=== PATIENT | female | born 1935 | race Caucasian/White ===

== ENCOUNTER → 2018-01-08 | Outpatient (CLI) | payer MEDICARE ==
--- NOTE | 2018-01-08 11:50 | MM ---
Reason for exam: additional evaluation requested from prior study. Last mammogram was performed 1 year ago. History: Patient is postmenopausal and has history of breast cancer at age 67. Benign cyst aspiration of the left breast, January 03, 2004. Lumpectomy of the right breast, 2001. Chemotherapy, 2001. Radiation therapy of the right breast, 2001. Took antineoplastic for 5 years beginning at age 67. Physical Findings: Nurse did not find any significant physical abnormalities on exam. MG 3D Diag Mammo W/Cad DOLORES Bilateral CC and MLO view(s) were taken. Prior study comparison: December 28, 2016, bilateral MG diagnostic mammo w CAD DOLORES. February 07, 2016, bilateral MG 3d diag mammo w/cad DOLORES. The breast tissue is heterogeneously dense. This may lower the sensitivity of mammography. Post surgical and post therapy change right breast. Large mole superior right breast. No significant new findings when compared with previous films. These results were verbally communicated with the patient and result sheet given to the patient on 01/08/18. ASSESSMENT: Benign, BI-RAD 2 RECOMMENDATION: Follow-up diagnostic mammogram of both breasts in 1 year.
== END | disposition home or self-care (01) ==
LOC: RADMAMWWP 10:45
PROVIDERS: ATTEND Internal Medicine Hematology & Oncology
DX: Z08 Encounter for follow-up examination after completed treatment for malignant neoplasm (principal); Z85.3 Personal history of malignant neoplasm of breast
CPT/HCPCS: 77066; G0279; 77062

== ENCOUNTER → 2019-02-06 | Outpatient (CLI) | payer MEDICARE ==
--- NOTE | 2019-02-06 14:25 | CT ---
EXAMINATION TYPE: CT soft tissue neck w con DATE OF EXAM: 02/06/2019 COMPARISON: None HISTORY: left side neck mass CT DLP: 289 mGycm CONTRAST: Patient injected with 80 mL of Isovue 300. TECHNIQUE: Axial images at 3 mm thick sections. Reconstructed images in the coronal plane and sagitt al plane are reviewed. FINDINGS: Limited CT sections are obtained the lung apices. The lung apices appear clear. CT neck: The torus tubarius and fossa of Rosenmuller are normal. [employer] Worker spaces are normal. Para nasal sinuses and mastoid air cells are clear. Within the left parotid gland is a 1.2 cm slightly hyperdense structure could be a enlarged lymph nod e. This corresponds to the palpable abnormality. The right parotid gland appears normal. Large lympha denopathy is not otherwise identified. Submandibular glands, are normal. Parapharyngeal spaces are n ormal. No suspicious adenopathy is evident. The hypopharynx appears within normal limits. Vocal cord level appear symmetrical. Thyroid as visualized is normal. Osseous structures are normal. IMPRESSIONS: 1. There is a 1.2 cm lymph node within the parotid gland at the level of the palpable abnormality lef t neck.
== END ==
LOC: RADCTMAIN 07:25
PROVIDERS: ATTEND Otolaryngology
DX: R22.1 Localized swelling, mass and lump, neck (principal); Z88.2 Allergy status to sulfonamides
CPT/HCPCS: 82565; 84520; 70491; 36415; Q9967

== ENCOUNTER → 2019-02-07 | Outpatient (CLI) | payer MEDICARE ==
--- NOTE | 2019-02-09 15:39 | PE ---
EXAMINATION TYPE: PET CT fusion skull to thigh DATE OF EXAM: 02/07/2019 COMPARISON: None available. Imaging is ordered as subsequent treatment strategy and outside imaging m ay have been performed in the past. HISTORY: History of right lower inner quadrant breast cancer although remote and 2003 treated with pa rtial mastectomy, chemotherapy and radiation. Recent left neck mass biopsy with result of metastatic breast cancer. TECHNIQUE: Following the intravenous administration of 13.67 mCi of F-18 FDG, whole b landon images are performed from the skull base to the midthigh. Images are reviewed on the computer in the coronal, axial, and sagittal planes. Reconstructed rotating images are created on independent [employer] orkstation and reviewed on the computer. A localization and attenuation correction CT is performed in conjunction with the PET scan. SCAN: Subsequent per history however no available comparison studies. FINDINGS: Mediastinal background: 1.7 Abdominal background: 2.74 SKULL BASE AND NECK: There is hypermetabolic activity corresponding to the biopsied left neck adenop athy just inferior to the parotid gland. This again measures approximately 1.2 cm in short axis but i s better defined on the prior exam of 02/06/2019 with contrast. This is biopsy-proven metastatic lymph node from breast carcinoma. This has a maximum SUV of 3.7. There is avid and diffuse hypermetabolic activity of the enlarged thyroid gland. There is a maximum S UV of 2.8. There is a right suprahilar lymph node at the level of the thyroid that is ill-defined on CT images m easuring approximately 9 mm in short axis with hypermetabolic activity. This has a maximum SUV of 2.9 . This is marked on series 3 image 59. CHEST, MEDIASTINUM, AND HILAR REGION: Local recurrence is seen as an amorphous area of hypermetabolic activity along the pectoralis muscle in the medial right breast cranial to the postsurgical change. Overlying skin thickening displays no hypermetabolic activity and is likely related to the prior radi ation therapy. Right suprahilar lymph node is ill-defined on CT and suboptimally measured but has an SUV of 3.37. Some amorphous uptake in the subscapularis on the right likely is due to muscular strain rather than metastasis. Right perihilar lymph node has a maximum SUV of 2.7 and is nonenlarged. ABDOMEN AND PELVIS: There is a nonenlarged 5 mm short axis retroperitoneal periaortic hypermetabolic lymph node with a maximum SUV of 2.9. This is marked on series 3 image 123. No additional suspicious hypermetabolic uptake. OSSEOUS STRUCTURES: Osseous metastasis is multifocal with a mixed sclerotic and lytic lesion having a n SUV of 7.4 within the right sternal manubrium. Numerous mixed sclerotic and lytic metastatic foci a re seen within the vertebral bodies such as at T2, T7, T8, T9, T12, L1, L2, right iliac bone and left iliac bone, and bilateral acetabulum. Sternal body focus is also seen on the left near the xiphoid. Uptake is also seen at T1 and C5, either degenerative or metastatic. Some examples of osseous metasta sis demonstrate SUVs at T2 of 4.8, in the cervical spine facet of 3.5, within the right acetabulum of 9.1, and within the spinous process of L1 of 3.8. OTHER CT: The thyroid gland is enlarged. Paranasal sinuses appear well aerated. Atherosclerosis of th e carotid arteries in the neck. Ill-defined haziness of the superior mediastinum is of uncertain etio logy, possibly related to the small pericardial effusion. Moderate coronary calcifications. Mild card iomegaly. Prominence of the main pulmonary artery measuring 2.9 cm. Upper limits of normal size of th e ascending thoracic aorta measuring 3.9 cm. Very small hiatal hernia. Left renal cyst is ill-defined measuring approximately 2.7 cm in the upper pole. Gallbladder surgically absent. Postsurgical dilata tion of the extrahepatic common bile duct. Dropped surgical clip is noted. Pancreatic atrophy is seen . Small fat filled periumbilical hernia. Sigmoid diverticulosis without evidence of acute diverticuli tis. Incomplete distention of the urinary bladder. No dilated large or small bowel. Moderate atherosc lerosis of the abdominal aorta and its branches. Multifocal right basilar atelectasis. IMPRESSION: 1. Presumed recurrence within the medial right breast with linear hypermetabolic uptake along the rig ht medial chest wall. Targeted ultrasound and biopsy could be performed for definitive tissue diagnos is. 2. 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 3. Multifocal osseous metastasis of the sternum, thoracic spine, cervical spine, lumbar spine, pelvis , and acetabulum. Abnormal uptake is also seen within a few right perihilar nonenlarged lymph nodes a nd a 5 mm short axis nonenlarged retroperitoneal periaortic lymph node in the upper abdomen near the diaphragmatic hiatus. 4. Diffuse hypermetabolic activity throughout the enlarged thyroid gland. Correlate with serum labora tory values to determine need for thyroid ultrasound.
== END | disposition home or self-care (01) ==
LOC: RADPETMAIN 14:36
PROVIDERS: ATTEND Internal Medicine Hematology & Oncology
DX: C79.51 Secondary malignant neoplasm of bone (principal); C50.311 Malignant neoplasm of lower-inner quadrant of right female breast; E04.9 Nontoxic goiter, unspecified
CPT/HCPCS: 78815; A9552

== ENCOUNTER → 2019-07-17 | Outpatient (CLI) | payer MEDICARE ==
--- NOTE | 2019-07-20 10:07 | PE ---
EXAMINATION TYPE: PET CT fusion skull to thigh DATE OF EXAM: 07/17/2019 CLINICAL HISTORY: 84-year-old female restaging breast cancer, C50.311. Initial diagnosis 2002 right b reast, status post partial mastectomy and chemoradiation. Now with recently biopsy-proven metastatic breast cancer to a left-sided cervical lymph node and 02/07 PET/CT showing osseous metastatic disease. Treatment monitoring. TECHNIQUE: Following the intravenous administration of 9.92 mCi of F-18 FDG, whole body images are performed from the skull base to the midthigh. Images are reviewed on the computer in the coronal, a xial, and sagittal planes. Reconstructed rotating images are created on independent workstation and reviewed on the computer. A localization and attenuation correction CT is performed in conjunction with the PET scan. Glucose level: 80 mg/dL COMPARISON: 02/07/2019 FINDINGS: PET: No recurrent abnormal hypermetabolism along the left parotid tail at the previous biopsy proven recur rence. There is intense uptake within the thyroid gland. Similar bulky, asymmetrically enlarged appearance t o the right lobe. Max SUV 7.6. Some similar soft tissue effacement of fat planes along the right base of the neck extending into the right superior mediastinum. However, the previous abnormal hypermetabolism here has resolved Some minimal residual linear soft tissue thickening along the medial aspect of the right breast overl eun the chest wall musculature. Thickening has improved in the interval and the previous hypermetabo lism has resolved. Some scattered muscular uptake is present within the arms and right subscapularis muscle. Average liver SUV 2.1 Physiologic FDG uptake now seen within the chest, abdomen, and pelvis. Numerous small areas of focal increased hypermetabolism throughout the spine, pelvis, sternum, and a few ribs have also resolved. Areas of new or enlarging sclerosis are present in these regions suggest ing healing osseous metastases. ATTENUATION CORRECTION CT: Undulating nasal septum. Paranasal sinuses and mastoid air cells appear clear. Surgical clips in the right axilla. Right lumpectomy changes are demonstrated. Heart borderline enlarged without pericardial effusion. Scattered coronary artery calcifications are present. Ascending aorta is ectatic at 3.6 cm. Bovine configuration to the aortic arch. No thoracic l ymphadenopathy by CT size criteria. Strandy areas of atelectasis in the mid and lower lungs without c onsolidation or pleural effusion. Small hiatal hernia. Status post cholecystectomy. Similar prominence to the bile duct likely combinat ion of patient's age and postcholecystectomy status. No dilated small bowel, free fluid, or free air. No mesenteric or retroperitoneal lymphadenopathy. Mild to moderate scattered stool. Left hemicolonic diverticulosis, greatest in the sigmoid colon. No pericolonic inflammatory change. Bladder not distended. Uterus surgically absent. No abnormal fluid collection the pelvis or pelvic ly mphadenopathy. Bones: Multiple new or enlarging sclerotic foci are present throughout the pelvis, spine, sternum, an d a few within the ribs compatible with treated osseous metastases. Degenerative levoconvex scoliosis of the lumbar spine. IMPRESSION: 1. There has been complete metabolic response to the diffuse osseous metastatic disease. New or enlar ging sclerotic lesions within the bones would be compatible with treated osseous metastases. 2. Residual soft tissue thickening along the right base of the neck extending into the right superior mediastinum, also shows with complete metabolic response. 3. Additional residual soft tissue thickening along the medial right breast overlying the chest wall, also with complete metabolic response. No new disease is evident. 4. Bulky asymmetric enlargement of the right lobe of the thyroid gland with persistent intense diffus e thyroid uptake. Findings may be seen with thyroiditis. Further evaluation with TFTs and thyroid ult rasound as indicated.
== END | disposition home or self-care (01) ==
LOC: RADPETMAIN 08:50
PROVIDERS: ATTEND Internal Medicine Hematology & Oncology
DX: C50.311 Malignant neoplasm of lower-inner quadrant of right female breast (principal); M79.89 Other specified soft tissue disorders; E04.9 Nontoxic goiter, unspecified; C79.51 Secondary malignant neoplasm of bone
CPT/HCPCS: 78815; A9552

== ENCOUNTER 2019-08-30 20:36 | Emergency (ER) | payer MEDICARE ==
[2019-08-30 20:45] VITALS: RESP 18
[2019-08-30] MEDS ORDERED: SODIUM CHLORIDE 0.9% 1,000 ML IV STA (21:00)
--- NOTE | 2019-08-30 21:03 | ED ---
General Adult HPI - General Chief complaint: Dizziness Stated complaint: Lightheaded Time Seen by Provider: 08/30/19 20:48 Source: patient, RN notes reviewed Mode of arrival: wheelchair Limitations: physical limitation - History of Present Illness Initial comments: Patient is a pleasant 84-year-old female presenting to the emergency Department with complaints of lightheadedness. Onset of symptoms was a couple of days ago, somewhat worse today. Symptoms are mostly worse when she goes from sitting to standing position. Patient feels lightheaded. Patient needs to take her time after making this position change prior to moving otherwise she is concerned she could fall. No history of similar symptoms previously. Patient is currently on chemotherapy for breast cancer. No confusion. No isolated area of weakness. - Related Data Home Medications Medication Instructions Recorded Confirmed Calcium Carb-Vit D 500Mg-200Un 1 tab PO DAILY 10/27/13 08/11/19 [Oscal 500+D] Cyanocobalamin [Vitamin B-12] 1,000 mcg PO DAILY 10/27/13 08/11/19 Multivitamins, Thera [Multivitamin 1 tab PO DAILY 10/27/13 08/11/19 (formulary)] Aspirin 325 mg PO DAILY 07/30/14 08/11/19 Levothyroxine Sodium [Synthroid] 50 mcg PO DAILY 07/30/14 08/11/19 Norlina-3 Fatty Acids/Fish Oil [Fish 1 cap PO DAILY 07/30/14 08/11/19 Oil 1,000 mg Softgel] Simvastatin [Zocor] 20 mg PO HS 07/30/14 08/11/19 Valsartan/Hydrochlorothiazide 1 tab PO DAILY 07/30/14 08/11/19 [Valsartan-Hctz 160-12.5 mg Tab] Allergies Allergy/AdvReac Type Severity Reaction Status Date / Time Cephalosporins Allergy Rash/Hives Verified 08/30/19 20:45 bacitracin AdvReac Unknown Verified 08/30/19 20:45 Review of Systems ROS Statement: Those systems with pertinent positive or pertinent negative responses have been documented in the HPI. ROS Other: All systems not noted in ROS Statement are negative. Constitutional: Denies: fever Eyes: Denies: eye pain ENT: Denies: ear pain Respiratory: Denies: cough, dyspnea Cardiovascular: Denies: chest pain Endocrine: Denies: fatigue Gastrointestinal: Denies: abdominal pain Genitourinary: Denies: dysuria Musculoskeletal: Denies: back pain Skin: Denies: rash Neurological: Denies: headache, weakness Past Medical History Past Medical History: Atrial Fibrillation, Hyperlipidemia, Hypertension, Osteoarthritis (OA), Thyroid Disorder Additional Past Medical History / Comment(s): HERNIATED DISC, SLIGTH INCONT OF URINE, R sided mets breast cancer 02/2019 History of Any Multi-Drug Resistant Organisms: None Reported Past Surgical History: Hysterectomy, Joint Replacement Additional Past Surgical History / Comment(s): (R) lumpectomy, CATARACTS DOLORES,- LENS IMPLANT, DOLORES KNEE REPLACEMENTS, DENTAL IMPLANT. Past Anesthesia/Blood Transfusion Reactions: No Reported Reaction Past Psychological History: No Psychological Hx Reported Smoking Status: Never smoker Past Alcohol Use History: None Reported Past Drug Use History: None Reported - Past Family History Mother Additional Family Medical History / Comment(s): Mother had respiratory illnesses Father Family Medical History: Cancer General Exam Limitations: no limitations General appearance: alert, in no apparent distress Head exam: Present: normocephalic Eye exam: Present: normal appearance, PERRL, EOMI. Absent: nystagmus ENT exam: Present: normal oropharynx Neck exam: Present: normal inspection Respiratory exam: Present: normal lung sounds bilaterally Cardiovascular Exam: Present: regular rate, normal rhythm GI/Abdominal exam: Present: soft. Absent: tenderness Extremities exam: Present: normal inspection Neurological exam: Present: alert, CN II-XII intact. Absent: motor sensory deficit Expanded Cranial nerves: EOM's Intact: Normal Motor strength exam: RUE: 5, LUE: 5, RLE: 5, LLE: 5 Eye Response: (4) open spontaneously Motor Response: (6) obeys commands Verbal Response: (5) oriented Psychiatric exam: Present: normal affect, normal mood Skin exam: Present: normal color Course Vital Signs 08/30/19 20:39 Temperature 98.7 F Pulse Rate 80 Respiratory 18 Rate Blood Pressure 150/78 O2 Sat by Pulse 97 Oximetry EKG Findings - EKG Comments: EKG Findings:: Normal sinus rhythm 67. ND 186. QRS 150. QT 448. QTC 473. Left axis. Right bundle branch block. LVH criteria. Inferior Q waves. No acute ST change. Medical Decision Making - Medical Decision Making Patient reevaluated and resting comfortably in bed. Patient tolerated orthostatics well. Patient does feel somewhat better. Patient has some dehydration on lab data and is updated regarding this. Patient given fluid bolus prior to discharge. Patient is comfortable with discharge home. - Lab Data Result diagrams: 08/30/19 21:25 08/30/19 21:25 Lab Results 08/30/19 08/30/19 08/30/19 Range/Units 21:25 21:25 21:25 WBC 2.9 L (3.8-10.6) k/uL RBC 3.67 L (3.80-5.40) m/uL Hgb 12.7 (11.4-16.0) gm/dL Hct 38.2 (34.0-46.0) % MCV 104.3 H (80.0-100.0) fL MCH 34.7 (25.0-35.0) pg MCHC 33.2 (31.0-37.0) g/dL RDW 13.3 (11.5-15.5) % Plt Count 151 (150-450) k/uL Neutrophils % 47 % Lymphocytes % 41 % Monocytes % 6 % Eosinophils % 2 % Basophils % 1 % Neutrophils # 1.4 (1.3-7.7) k/uL Lymphocytes # 1.2 (1.0-4.8) k/uL Monocytes # 0.2 (0-1.0) k/uL Eosinophils # 0.1 (0-0.7) k/uL Basophils # 0.0 (0-0.2) k/uL Macrocytosis Slight PT 9.5 (9.0-12.0) sec INR 0.9 (<1.2) APTT 22.9 (22.0-30.0) sec Sodium (137-145) mmol/L Potassium (3.5-5.1) mmol/L Chloride (98-107) mmol/L Carbon Dioxide (22-30) mmol/L Anion Gap mmol/L BUN (7-17) mg/dL Creatinine (0.52-1.04) mg/dL Est GFR (CKD-EPI)AfAm (>60 ml/min/1.73 sqM) Est GFR (CKD-EPI)NonAf (>60 ml/min/1.73 sqM) Glucose (74-99) mg/dL Plasma Lactic Acid Benjamin (0.7-2.0) mmol/L Calcium (8.4-10.2) mg/dL Phosphorus (2.5-4.5) mg/dL Magnesium (1.6-2.3) mg/dL Total Bilirubin (0.2-1.3) mg/dL AST (14-36) U/L ALT (4-34) U/L Alkaline Phosphatase (38-126) U/L Total Protein (6.3-8.2) g/dL Albumin (3.5-5.0) g/dL Urine Color Yellow Urine Appearance Clear (Clear) Urine pH 5.5 (5.0-8.0) Ur Specific [place] 1.021 (1.001-1.035) Urine Protein Negative (Negative) Urine Glucose (UA) Negative (Negative) Urine Ketones Negative (Negative) Urine Blood Trace H (Negative) Urine Nitrite Negative (Negative) Urine Bilirubin Negative (Negative) Urine Urobilinogen <2.0 (<2.0) mg/dL Ur Leukocyte Esterase Moderate H (Negative) Urine RBC 1 (0-5) /hpf Urine WBC 12 H (0-5) /hpf Urine Bacteria Many H (None) /hpf Urine Mucus Rare H (None) /hpf 08/30/19 08/30/19 Range/Units 21:25 21:25 WBC (3.8-10.6) k/uL RBC (3.80-5.40) m/uL Hgb (11.4-16.0) gm/dL Hct (34.0-46.0) % MCV (80.0-100.0) fL MCH (25.0-35.0) pg MCHC (31.0-37.0) g/dL RDW (11.5-15.5) % Plt Count (150-450) k/uL Neutrophils % % Lymphocytes % % Monocytes % % Eosinophils % % Basophils % % Neutrophils # (1.3-7.7) k/uL Lymphocytes # (1.0-4.8) k/uL Monocytes # (0-1.0) k/uL Eosinophils # (0-0.7) k/uL Basophils # (0-0.2) k/uL Macrocytosis PT (9.0-12.0) sec INR (<1.2) APTT (22.0-30.0) sec Sodium 138 (137-145) mmol/L Potassium 3.6 (3.5-5.1) mmol/L Chloride 101 (98-107) mmol/L Carbon Dioxide 30 (22-30) mmol/L Anion Gap 7 mmol/L BUN 27 H (7-17) mg/dL Creatinine 1.22 H (0.52-1.04) mg/dL Est GFR (CKD-EPI)AfAm 48 (>60 ml/min/1.73 sqM) Est GFR (CKD-EPI)NonAf 41 (>60 ml/min/1.73 sqM) Glucose 110 H (74-99) mg/dL Plasma Lactic Acid Benjamin 1.2 (0.7-2.0) mmol/L Calcium 9.2 (8.4-10.2) mg/dL Phosphorus 2.8 (2.5-4.5) mg/dL Magnesium 1.9 (1.6-2.3) mg/dL Total Bilirubin 0.4 (0.2-1.3) mg/dL AST 25 (14-36) U/L ALT 13 (4-34) U/L Alkaline Phosphatase 49 (38-126) U/L Total Protein 6.8 (6.3-8.2) g/dL Albumin 4.0 (3.5-5.0) g/dL Urine Color Urine Appearance (Clear) Urine pH (5.0-8.0) Ur Specific [place] (1.001-1.035) Urine Protein (Negative) Urine Glucose (UA) (Negative) Urine Ketones (Negative) Urine Blood (Negative) Urine Nitrite (Negative) Urine Bilirubin (Negative) Urine Urobilinogen (<2.0) mg/dL Ur Leukocyte Esterase (Negative) Urine RBC (0-5) /hpf Urine WBC (0-5) /hpf Urine Bacteria (None) /hpf Urine Mucus (None) /hpf Disposition Clinical Impression: Dehydration Disposition: HOME SELF-CARE Condition: Stable Instructions (If sedation given, give patient instructions): Dizziness (ED) Additional Instructions: Please follow-up with Dr. Patten and Dr. Dukes in the next couple days for recheck. You will need to have your blood work rechecked. Return for increased dizziness or lightheadedness, weakness, worsening or changing symptoms or other concerns. Is patient prescribed a controlled substance at d/c from ED?: No Referrals: Donta Dukes III, MD [Primary Care Provider] - 1-2 days Jeff Patten MD [STAFF PHYSICIAN] - 1-2 days Time of Disposition: 22:24
[2019-08-30 22:00] LABS: Basophils % (A) 1 %; Eosinophils # (A) 0.1 k/uL (0-0.7); Eosinophils % (A) 2 %; HCT 38.2 % (34.0-46.0); HGB 12.7 gm/dL (11.4-16.0); Lymphocytes # (A) 1.2 k/uL (1.0-4.8); Lymphocytes % (A) 41 %; MCH 34.7 pg (25.0-35.0); MCHC 33.2 g/dL (31.0-37.0); MCV 104.3 fL (80.0-100.0); Macrocytosis Slight; Monocytes # (A) 0.2 k/uL (0-1.0); Monocytes % (A) 6 %; Neutrophils # (A) 1.4 k/uL (1.3-7.7); Neutrophils % (A) 47 %; Platelet Count 151 k/uL (150-450); RBC 3.67 m/uL (3.80-5.40); RDW 13.3 % (11.5-15.5); WBC 2.9 k/uL (3.8-10.6)
[2019-08-30 22:09] LABS: Appearance,Urine Clear (Clear); Bacteria,Urine Many /hpf; Bilirubin,Urine Negative (Negative); Blood,Urine Trace (Negative); Calcium 9.2 mg/dL (8.4-10.2); Color,Urine Yellow; Glucose,Urine (UA) Negative (Negative); Ketones,Urine Negative (Negative); Leukocyte Esterase,Urine Moderate (Negative); Magnesium 1.9 mg/dL (1.6-2.3); Mucus,Urine Rare /hpf; Nitrite,Urine Negative (Negative); PH, Urine 5.5 (5.0-8.0); Phosphorus 2.8 mg/dL (2.5-4.5); Potassium 3.6 mmol/L (3.5-5.1); Protein,Urine Negative (Negative); RBC,Urine 1 /hpf (0-5); Specific Gravity,Urine 1.021 (1.001-1.035); Total Bilirubin 0.4 mg/dL (0.2-1.3); Total Protein 6.8 g/dL (6.3-8.2); Urobilinogen,Urine <2.0 mg/dL (<2.0); WBC,Urine 12 /hpf (0-5)
[2019-08-30 22:15] LABS: INR 0.9 (<1.2); Partial Thromboplastin Time 22.9 sec (22.0-30.0); Prothrombin Time 9.5 sec (9.0-12.0)
[2019-08-30 22:26] LABS: T4, Free (Free Thyroxine) 1.19 ng/dL (0.78-2.19)
[2019-08-30 22:46] VITALS: BP 136/63; PULSE 76; TEMP 97.9
== END 2019-08-30 23:34 | disposition home or self-care (01) ==
LOC: EC 20:36
DX: E86.0 Dehydration (principal); E78.5 Hyperlipidemia, unspecified; I10 Essential (primary) hypertension; M19.90 Unspecified osteoarthritis, unspecified site; E07.9 Disorder of thyroid, unspecified; Z79.82 Long term (current) use of aspirin; Z79.890 Hormone replacement therapy; Z79.899 Other long term (current) drug therapy; Z88.1 Allergy status to other antibiotic agents; Z96.653 Presence of artificial knee joint, bilateral; Z90.11 Acquired absence of right breast and nipple; Z85.3 Personal history of malignant neoplasm of breast; Z92.21 Personal history of antineoplastic chemotherapy
CPT/HCPCS: 36415; 80053; 81001; 83605; 83735; 84100; 84439; 84443; 84481; 85025; 85610; 85730; 87077; 87086; 87186; 93005; 96360; 96361; 99284

== ENCOUNTER → 2020-01-22 | Outpatient (CLI) | payer MEDICARE ==
--- NOTE | 2020-01-24 14:28 | PE ---
Nuclear medicine PET/CT HISTORY: Breast carcinoma right, C 50.311, subsequent Patient received 8.4 mCi F-18 FDG intravenously, delayed scanning was performed from the skull base t o the mid thighs. Localization and attenuation correction CT scan was performed. Correlation to prior nuclear medicine PET/CT 07/17/2019 Chest and neck: Hypermetabolic uptake is again noted within the thyroid gland as on prior. There is n o supraclavicular or cervical adenopathy. No evident lung mass. No pleural effusion. Heart shows a s imilar appearance, minimal pericardial fluid is present. There are coronary artery calcifications. Higuera rgical clips in the right axilla. No mediastinal, axillary, or hilar adenopathy. Postop change noted to the right breast. ABDOMEN: There is no evident liver mass or retroperitoneal adenopathy. Patient is post cholecystectom y. No pelvic adenopathy or ascites. No suspicious uptake. The osseous structures show sclerotic foci diffusely in a similar distribution. IMPRESSION: Findings are similar to prior exam. Posttreatment changes. Similar findings in the thyroi d gland. Minimal pericardial fluid.
== END | disposition home or self-care (01) ==
LOC: RADPETMAIN 11:11
PROVIDERS: ATTEND Internal Medicine Hematology & Oncology
DX: C50.311 Malignant neoplasm of lower-inner quadrant of right female breast (principal)
CPT/HCPCS: 78815; A9552

== ENCOUNTER → 2020-03-08 | Outpatient (CLI) | payer MEDICARE ==
[~2020-03-08] MED LIST: DENOSUMAB 120 MG/1.7 ML VIAL SQ NR
[2020-03-08 10:21] VITALS: BP 144/86; PULSE 64; RESP 16; TEMP 98.7
== END | disposition home or self-care (01) ==
LOC: PROCWHC3 10:03
PROVIDERS: ATTEND Internal Medicine Hematology & Oncology
DX: Z51.11 Encounter for antineoplastic chemotherapy (principal); C79.51 Secondary malignant neoplasm of bone
CPT/HCPCS: 96372; J0897

== ENCOUNTER → 2020-06-06 | Outpatient (CLI) | payer MEDICARE ==
[2020-06-06 13:41] VITALS: BP 141/79; PULSE 99; RESP 16
== END ==
LOC: PROCWHC3 13:31
PROVIDERS: ATTEND Internal Medicine Hematology & Oncology
DX: C79.51 Secondary malignant neoplasm of bone (principal)
CPT/HCPCS: 96372; J0897

== ENCOUNTER → 2020-06-23 | Outpatient (CLI) | payer MEDICARE ==
--- NOTE | 2020-06-23 14:20 | XR ---
EXAMINATION TYPE: XR femur LT DATE OF EXAM: 06/23/2020 COMPARISON: None HISTORY: Pain TECHNIQUE: 2 view left femur FINDINGS: Femoral head articulates with the acetabulum. There is joint space narrowing compatible aj e mild degenerative change. Left knee prosthesis is present No acute fractures are evident. No dislocations are evident. IMPRESSION: 1. No acute osseous abnormality left femur.
--- NOTE | 2020-06-23 15:24 | MR ---
EXAMINATION TYPE: MR shoulder RT wo con DATE OF EXAM: 06/23/2020 COMPARISON: None HISTORY: 85-year-old female with right shoulder pain, Hx of breast cancer TECHNIQUE: Multiplanar, multisequence imaging of the right shoulder is performed without contrast. FINDINGS: Intermediate signal within the intracapsular portion of the long head biceps tendon. The extracapsula r portion remains appropriately situated along the bicipital groove. The subscapularis tendon appears intact. Moderate degenerative change at the acromioclavicular joint with a joint effusion and marginal spurri ng. Mild inferior spurring impinging onto the myotendinous junction of the supraspinatus. Marked heterogeneous signal posterior breast and it is infraspinatus tendons. There is a mild effusio n in the subacromial/subdeltoid bursa extending to the lateral deltoid shelf. There is a 1.2 x 1.2 cm full-thickness tear of the far anterior supraspinatus tendon. Only minimal fatty streaks within both supraspinatus and infraspinatus muscle bellies. There is some edematous soft tissue thickening in the rotator cuff interval and some mild edema along the superior subscapularis muscle belly. No significant thickening of the axillary recess. Physiologic glenohumeral joint fluid. Mild thinning of superior humeral head articular cartilage. Eben e degenerative blunting of the superior labrum. No discrete labral tear given nonarthrographic techni que and no paralabral cyst. No Hill-Sachs deformity or os acromiale. Patchy red marrow is present. No suspicious bone marrow replacement seen. IMPRESSION: 1. Marked supraspinatus and infraspinatus tendinosis with a small 1.2 x 1.2 cm full-thickness tear of the far anterior supraspinatus tendon. No significant muscle atrophy. 2. Edema within the superior aspect of the subscapularis muscle belly could represent a muscle strain . Edematous thickening in the rotator cuff interval could represent nonspecific synovitis or a biceps matt sprain. 3. Moderate AC joint OA. Mild impingement onto the underlying cuff.
== END ==
LOC: RADMRIMAIN 12:39
PROVIDERS: ATTEND Internal Medicine Hematology & Oncology
DX: M75.111 Incomplete rotator cuff tear or rupture of right shoulder, not specified as traumatic (principal); M67.813 Other specified disorders of tendon, right shoulder; M19.011 Primary osteoarthritis, right shoulder; M79.652 Pain in left thigh; Z85.3 Personal history of malignant neoplasm of breast

== ENCOUNTER → 2020-07-15 | Outpatient (CLI) | payer MEDICARE ==
--- NOTE | 2020-07-18 06:10 | PE ---
EXAMINATION TYPE: PET CT fusion skull to thigh DATE OF EXAM: 07/15/2020 COMPARISON: Prior PET/CT January 22, 2020 and older studies HISTORY: Right-sided breast cancer diagnosed and treated 2001. Had osseous and lymphatic metastatic recurrence in 2019. TECHNIQUE: Following the intravenous administration of 10.09 mCi of F-18 FDG, whole body images are performed from the skull base to the midthigh. Images are reviewed on the computer in the coronal, a xial, and sagittal planes. Reconstructed rotating images are created on independent workstation and reviewed on the computer. A localization and attenuation correction CT is performed in conjunction with the PET scan. Blood glucose level equals 89. SCAN: Subsequent Scan FINDINGS: SKULL BASE AND NECK: Stable abnormal hypermetabolic uptake result slightly enlarged thyroid gland ri ght lobe more prominent than left should be correlated clinically. No new areas of abnormal hypermeta bolic uptake, no recurrent left parotid lesion. CHEST, MEDIASTINUM, AND HILAR REGION: Persistent abnormal soft tissue density anterior superior media stinum without recurrent abnormal hypermetabolic uptake. No new areas of abnormal hypermetabolic upta ke. ABDOMEN AND PELVIS: Normal excretion. No numerous abnormal hypermetabolic uptake. OSSEOUS STRUCTURES: Redemonstration of scattered sclerotic osseous metastatic disease, for reference large anterior lesion axial image 112 in the lower thoracic spine is redemonstrated. No new areas of abnormal hypermetabolic uptake. OTHER CT: Surgical changes right axilla. [id number] calcified plaque left carotid bulb. Coronar y artery calcification redemonstrated in the proximal LAD. Aortic and mitral valvular calcification r edemonstrated. Mild cardiomegaly. Cholecystectomy clips redemonstrated. Stable moderate extrahepatic biliary dilatation. Diverticula on the left and sigmoid colon. Uterus surgically absent. Underlying scoliosis centered in the mid lumbar spine redemonstrated. Multilevel spurring and disc sp frida narrowing in the thoracolumbar spine. IMPRESSION: No new or recurrent areas of abnormal hypermetabolic uptake to suggest active neoplasm. S clerotic osseous metastatic disease redemonstrated. Posttreatment changes right breast once again not ed.
== END | disposition home or self-care (01) ==
LOC: RADPETMAIN 11:14
PROVIDERS: ATTEND Internal Medicine Hematology & Oncology
DX: C79.51 Secondary malignant neoplasm of bone (principal); C50.911 Malignant neoplasm of unspecified site of right female breast
CPT/HCPCS: 78815; A9552

== ENCOUNTER → 2020-09-07 | Outpatient (CLI) | payer MEDICARE ==
[2020-09-07 13:41] VITALS: BP 172/88; PULSE 84; RESP 16; TEMP 98.2
== END ==
LOC: PROCWHC3 13:22 → EDSTATUS 13:30
PROVIDERS: ATTEND Internal Medicine Hematology & Oncology
DX: C79.51 Secondary malignant neoplasm of bone (principal); Z88.1 Allergy status to other antibiotic agents; Z91.048 Other nonmedicinal substance allergy status
CPT/HCPCS: 96372; J0897

== ENCOUNTER 2020-09-28 05:48 | Observation (INO) | payer MEDICARE ==
[2020-09-28] MEDS ORDERED: MECLIZINE 12.5 MG TAB PO STA (06:11)
[2020-09-28] MEDS ORDERED: ONDANSETRON 4 MG/2 ML VIAL IVP STA (06:11)
[2020-09-28] MEDS ORDERED: SODIUM CHLORIDE 0.9% 500 ML 500 ML IV STA (06:11)
[2020-09-28 06:40] LABS: ALT 13 U/L (4-34); AST 31 U/L (14-36); African American GFR (CKD) >90 (>60 ml/min/1.73 sqM); Albumin 3.7 g/dL (3.5-5.0); Alkaline Phosphatase 47 U/L (38-126); Anion Gap 7 mmol/L; Blood Urea Nitrogen 17 mg/dL (7-17); Calcium 9.2 mg/dL (8.4-10.2); Carbon Dioxide 29 mmol/L (22-30); Chloride 104 mmol/L (98-107); Glucose 90 mg/dL (74-99); Magnesium 1.8 mg/dL (1.6-2.3); Non-African American GFR(CKD) 83 (>60 ml/min/1.73 sqM); Potassium 3.6 mmol/L (3.5-5.1); Sodium 140 mmol/L (137-145); Total Bilirubin 0.7 mg/dL (0.2-1.3); Total Protein 6.3 g/dL (6.3-8.2)
[2020-09-28 06:50] LABS: Basophils % (A) 1 %; Eosinophils % (A) 2 %; HCT 35.4 % (34.0-46.0); HGB 12.5 gm/dL (11.4-16.0); Lymphocytes # (A) 1.1 k/uL (1.0-4.8); Lymphocytes % (A) 43 %; MCH 36.7 pg (25.0-35.0); MCHC 35.3 g/dL (31.0-37.0); Macrocytosis Slight; Mean Platelet Volume 7.5; Monocytes # (A) 0.2 k/uL (0-1.0); Monocytes % (A) 9 %; Neutrophils # (A) 1.1 k/uL (1.3-7.7); Neutrophils % (A) 43 %; Platelet Count 134 k/uL (150-450); RDW 13.8 % (11.5-15.5); WBC 2.6 k/uL (3.8-10.6)
--- NOTE | 2020-09-28 06:53 | ED ---
General Adult HPI - General Source: patient, EMS, RN notes reviewed Mode of arrival: EMS Limitations: no limitations <Javier Whitaker - Last Filed: 09/28/20 08:34> <Jessee Warner - Last Filed: 09/28/20 15:21> - General Chief complaint: Fall Stated complaint: Fall Time Seen by Provider: 09/28/20 05:51 - History of Present Illness Initial comments: This an 85-year-old female presents emergency Department chief complaint of dizziness. Patient states she woke up and was dizzy states symptoms was spinning. She states that she sat back down and weighs second attempted to get up again and felt dizzy and states that she slowly fell to the ground denies any head injury. Patient does have known metastatic breast cancer. Patient denies any chest pain, shortness breath, focal weakness, vomiting states that she is slightly nauseated. Denies any new medications. Denies any decreased appetite. No recent cough or cold-like symptoms no fever (Javier Whitaker) - Related Data Home Medications Medication Instructions Recorded Confirmed Cyanocobalamin [Vitamin B-12] 1,000 mcg PO DAILY 10/27/13 09/28/20 Multivitamins, Thera [Multivitamin 1 tab PO DAILY 10/27/13 09/28/20 (formulary)] Aspirin 325 mg PO DAILY 07/30/14 09/28/20 [place]-3 Fatty Acids/Fish Oil [Fish 1 cap PO DAILY 07/30/14 09/28/20 Oil 1,000 mg Softgel] Valsartan/Hydrochlorothiazide 0.5 tab PO DAILY 07/30/14 09/28/20 [Valsartan-Hctz 160-12.5 mg Tab] Letrozole 2.5 mg PO DIRECTED 12/07/19 09/28/20 Levothyroxine Sodium 25 mcg PO MOTUWETHFR 09/07/20 09/28/20 Calcium Carbonate 1,000 mg PO DAILY 09/28/20 09/28/20 Cetirizine HCl [Zyrtec] 10 mg PO HS 09/28/20 09/28/20 Levothyroxine Sodium [Synthroid] 50 mcg PO SUSA 09/28/20 09/28/20 Simvastatin [Zocor] 10 mg PO HS 09/28/20 09/28/20 Xgeva 120 mg INJ Q84D 09/28/20 09/28/20 Allergies Allergy/AdvReac Type Severity Reaction Status Date / Time Cephalosporins Allergy Rash/Hives Verified 09/28/20 09:08 bacitracin AdvReac Unknown Verified 09/28/20 09:08 mold AdvReac Itching Verified 09/28/20 09:08 pollen extracts AdvReac Itching Verified 09/28/20 09:08 Review of Systems ROS Other: All systems not noted in ROS Statement are negative. <Javier Whitaker - Last Filed: 09/28/20 08:34> ROS Other: All systems not noted in ROS Statement are negative. <Jessee Warner - Last Filed: 09/28/20 15:21> ROS Statement: Those systems with pertinent positive or pertinent negative responses have been documented in the HPI. Past Medical History Past Medical History: Atrial Fibrillation, Hyperlipidemia, Hypertension, Os teoarthritis (OA), Thyroid Disorder Additional Past Medical History / Comment(s): HERNIATED DISC, SLIGTH INCONT OF URINE, R sided mets breast cancer 02/2019 History of Any Multi-Drug Resistant Organisms: None Reported Past Surgical History: Hysterectomy, Joint Replacement Additional Past Surgical History / Comment(s): (R) lumpectomy, CATARACTS DOLORES,- LENS IMPLANT, DOLORES KNEE REPLACEMENTS, DENTAL IMPLANT. Past Anesthesia/Blood Transfusion Reactions: No Reported Reaction Past Psychological History: No Psychological Hx Reported Smoking Status: Never smoker Past Alcohol Use History: None Reported Past Drug Use History: None Reported - Past Family History Mother Additional Family Medical History / Comment(s): Mother had respiratory illnesses Father Family Medical History: Cancer <Javier Whitaker - Last Filed: 09/28/20 08:34> General Exam General appearance: alert, in no apparent distress Head exam: Present: atraumatic, normocephalic, normal inspection Eye exam: Present: normal appearance, PERRL, EOMI. Absent: scleral icterus, conjunctival injection, periorbital swelling ENT exam: Present: normal exam, normal oropharynx, mucous membranes moist Neck exam: Present: normal inspection, full ROM. Absent: tenderness, meningismus, lymphadenopathy Respiratory exam: Present: normal lung sounds bilaterally. Absent: respiratory distress, wheezes, rales, rhonchi, stridor Cardiovascular Exam: Present: regular rate, normal rhythm, normal heart sounds. Absent: systolic murmur, diastolic murmur, rubs, gallop, clicks Neurological exam: Present: alert, oriented X3, CN II-XII intact, reflexes normal. Absent: motor sensory deficit Skin exam: Present: warm, dry, intact, normal color. Absent: rash <Javier Whitaker - Last Filed: 09/28/20 08:34> Course <Jessee Warner - Last Filed: 09/28/20 15:21> Vital Signs 09/28/20 09/28/20 09/28/20 05:50 07:40 08:57 Temperature 98.3 F 98.1 F Pulse Rate 58 L 64 57 L Pulse Rate [ Sitting] Pulse Rate [ Standing] Pulse Rate [ Supine] Respiratory 20 16 15 Rate Blood Pressure 146/84 118/63 120/68 Blood Pressure [Sitting] Blood Pressure [Standing] Blood Pressure [Supine] O2 Sat by Pulse 100 98 98 Oximetry 09/28/20 09/28/20 11:27 14:19 Temperature Pulse Rate 60 Pulse Rate [ 73 Sitting] Pulse Rate [ 81 Standing] Pulse Rate [ 61 Supine] Respiratory 16 Rate Blood Pressure 103/61 Blood Pressure 136/68 [Sitting] Blood Pressure 142/73 [Standing] Blood Pressure 118/54 [Supine] O2 Sat by Pulse 95 Oximetry - Reevaluation(s) Reevaluation #1: 09/28/20 08:48 PA supervision: I personally evaluate the patient [id number]. She did present with complaints of dizziness and a fall this morning she had no injury but she states she was very dizzy when she got up this point. Clinically she is did seem to improve however on evaluation she was noted have frequent PVCs which were previously not seen on other EKGs and the patient is not aware this. Concern is for this. Said possible relating to the dizziness and fall. Patient will be admitted for further inpatient evaluation and treatment. Patient is in agreement with this. (Jessee Warner) EKG Findings - EKG Comments: EKG Findings:: EKG performed at 5.9 sinus rhythm with PVC noted the right bundle rate of 61 Pr 192 QRS 144 QTC is QTC 468/471 <Javier Whitaker - Last Filed: 09/28/20 08:34> Medical Decision Making - Lab Data Result diagrams: 09/28/20 06:24 09/28/20 06:24 <Javier Whitaker Last Filed: 09/28/20 08:34> - Lab Data Result diagrams: 09/28/20 06:24 09/28/20 06:24 <Jessee Warner - Last Filed: 09/28/20 15:21> - Medical Decision Making 85-year-old presented for dizziness. Patient was given fluid bolus, Antivert patient is improved CT is unremarkable as unremarkable. Patient feels comfortable with discharge and return parameters were discussed. (Javier Whitaker) - Lab Data Lab Results 09/28/20 09/28/20 09/28/20 Range/Units 06:24 06:24 06:24 WBC 2.6 L (3.8-10.6) k/uL RBC 3.40 L (3.80-5.40) m/uL Hgb 12.5 (11.4-16.0) gm/dL Hct 35.4 (34.0-46.0) % MCV 104.0 H (80.0-100.0) fL MCH 36.7 H (25.0-35.0) pg MCHC 35.3 (31.0-37.0) g/dL RDW 13.8 (11.5-15.5) % Plt Count 134 L (150-450) k/uL MPV 7.5 Neutrophils % 43 % Lymphocytes % 43 % Monocytes % 9 % Eosinophils % 2 % Basophils % 1 % Neutrophils # 1.1 L (1.3-7.7) k/uL Lymphocytes # 1.1 (1.0-4.8) k/uL Monocytes # 0.2 (0-1.0) k/uL Eosinophils # 0.0 (0-0.7) k/uL Basophils # 0.0 (0-0.2) k/uL Macrocytosis Slight Sodium 140 (137-145) mmol/L Potassium 3.6 (3.5-5.1) mmol/L Chloride 104 (98-107) mmol/L Carbon Dioxide 29 (22-30) mmol/L Anion Gap 7 mmol/L BUN 17 (7-17) mg/dL Creatinine 0.63 (0.52-1.04) mg/dL Est GFR (CKD-EPI)AfAm >90 (>60 ml/min/1.73 sqM) Est GFR (CKD-EPI)NonAf 83 (>60 ml/min/1.73 sqM) Glucose 90 (74-99) mg/dL Calcium 9.2 (8.4-10.2) mg/dL Magnesium 1.8 (1.6-2.3) mg/dL Total Bilirubin 0.7 (0.2-1.3) mg/dL AST 31 (14-36) U/L ALT 13 (4-34) U/L Alkaline Phosphatase 47 (38-126) U/L Troponin I (0.000-0.034) ng/mL Total Protein 6.3 (6.3-8.2) g/dL Albumin 3.7 (3.5-5.0) g/dL Urine Color Light Yellow Urine Appearance Clear (Clear) Urine pH 5.5 (5.0-8.0) Ur Specific [place] 1.004 (1.001-1.035) Urine Protein Negative (Negative) Urine Glucose (UA) Negative (Negative) Urine Ketones Negative (Negative) Urine Blood Negative (Negative) Urine Nitrite Negative (Negative) Urine Bilirubin Negative (Negative) Urine Urobilinogen <2.0 (<2.0) mg/dL Ur Leukocyte Esterase Negative (Negative) 09/28/20 Range/Units 06:24 WBC (3.8-10.6) k/uL RBC (3.80-5.40) m/uL Hgb (11.4-16.0) gm/dL Hct (34.0-46.0) % MCV (80.0-100.0) fL MCH (25.0-35.0) pg MCHC (31.0-37.0) g/dL RDW (11.5-15.5) % Plt Count (150-450) k/uL MPV Neutrophils % % Lymphocytes % % Monocytes % % Eosinophils % % Basophils % % Neutrophils # (1.3-7.7) k/uL Lymphocytes # (1.0-4.8) k/uL Monocytes # (0-1.0) k/uL Eosinophils # (0-0.7) k/uL Basophils # (0-0.2) k/uL Macrocytosis Sodium (137-145) mmol/L Potassium (3.5-5.1) mmol/L Chloride (98-107) mmol/L Carbon Dioxide (22-30) mmol/L Anion Gap mmol/L BUN (7-17) mg/dL Creatinine (0.52-1.04) mg/dL Est GFR (CKD-EPI)AfAm (>60 ml/min/1.73 sqM) Est GFR (CKD-EPI)NonAf (>60 ml/min/1.73 sqM) Glucose (74-99) mg/dL Calcium (8.4-10.2) mg/dL Magnesium (1.6-2.3) mg/dL Total Bilirubin (0.2-1.3) mg/dL AST (14-36) U/L ALT (4-34) U/L Alkaline Phosphatase (38-126) U/L Troponin I <0.012 (0.000-0.034) ng/mL Total Protein (6.3-8.2) g/dL Albumin (3.5-5.0) g/dL Urine Color Urine Appearance (Clear) Urine pH (5.0-8.0) Ur Specific [place] (1.001-1.035) Urine Protein (Negative) Urine Glucose (UA) (Negative) Urine Ketones (Negative) Urine Blood (Negative) Urine Nitrite (Negative) Urine Bilirubin (Negative) Urine Urobilinogen (<2.0) mg/dL Ur Leukocyte Esterase (Negative) Disposition Is patient prescribed a controlled substance at d/c from ED?: No Time of Disposition: 08:36 <Javier Whitaker - Last Filed: 09/28/20 08:34> Is patient prescribed a controlled substance at d/c from ED?: No <Jessee Warner - Last Filed: 09/28/20 15:21> Clinical Impression: Fall, Dizziness, Near syncope Disposition: ADMITTED IP TO THIS HOSP Condition: Fair
--- NOTE | 2020-09-28 07:20 | CT ---
EXAMINATION TYPE: CT brain wo con DATE OF EXAM: 09/28/2020 COMPARISON: 10/27/2013 HISTORY: Dizziness CT DLP: 1072.4 mGycm Automated exposure control for dose reduction was used. FINDINGS: The ventricles are symmetric and normal in size for age. Nicholas-white matter differentiation is preserved. No definite intra-axial or extra-axial fluid collection is seen. The paranasal sinuses are grossly clear. The orbits and calvarium are intact. IMPRESSION: NO ACUTE INTRACRANIAL ABNORMALITY.
[2020-09-28 08:26] LABS: Appearance,Urine Clear (Clear); Bilirubin,Urine Negative (Negative); Blood,Urine Negative (Negative); Color,Urine Light Yellow; Glucose,Urine (UA) Negative (Negative); Ketones,Urine Negative (Negative); Leukocyte Esterase,Urine Negative (Negative); Nitrite,Urine Negative (Negative); PH, Urine 5.5 (5.0-8.0); Protein,Urine Negative (Negative); Specific Gravity,Urine 1.004 (1.001-1.035); Urobilinogen,Urine <2.0 mg/dL (<2.0)
--- NOTE | 2020-09-28 08:44 | ED ---
Medical Decision Making - Medical Decision Making Patient does feel improves though she has some new noted pauses, PVCs on EKG which may be leading her to be symptomatic will be admitted. - Lab Data Result diagrams: 09/28/20 06:24 09/28/20 06:24 Lab Results 09/28/20 09/28/20 09/28/20 Range/Units 06:24 06:24 06:24 WBC 2.6 L (3.8-10.6) k/uL RBC 3.40 L (3.80-5.40) m/uL Hgb 12.5 (11.4-16.0) gm/dL Hct 35.4 (34.0-46.0) % MCV 104.0 H (80.0-100.0) fL MCH 36.7 H (25.0-35.0) pg MCHC 35.3 (31.0-37.0) g/dL RDW 13.8 (11.5-15.5) % Plt Count 134 L (150-450) k/uL MPV 7.5 Neutrophils % 43 % Lymphocytes % 43 % Monocytes % 9 % Eosinophils % 2 % Basophils % 1 % Neutrophils # 1.1 L (1.3-7.7) k/uL Lymphocytes # 1.1 (1.0-4.8) k/uL Monocytes # 0.2 (0-1.0) k/uL Eosinophils # 0.0 (0-0.7) k/uL Basophils # 0.0 (0-0.2) k/uL Macrocytosis Slight Sodium 140 (137-145) mmol/L Potassium 3.6 (3.5-5.1) mmol/L Chloride 104 (98-107) mmol/L Carbon Dioxide 29 (22-30) mmol/L Anion Gap 7 mmol/L BUN 17 (7-17) mg/dL Creatinine 0.63 (0.52-1.04) mg/dL Est GFR (CKD-EPI)AfAm >90 (>60 ml/min/1.73 sqM) Est GFR (CKD-EPI)NonAf 83 (>60 ml/min/1.73 sqM) Glucose 90 (74-99) mg/dL Calcium 9.2 (8.4-10.2) mg/dL Magnesium 1.8 (1.6-2.3) mg/dL Total Bilirubin 0.7 (0.2-1.3) mg/dL AST 31 (14-36) U/L ALT 13 (4-34) U/L Alkaline Phosphatase 47 (38-126) U/L Troponin I (0.000-0.034) ng/mL Total Protein 6.3 (6.3-8.2) g/dL Albumin 3.7 (3.5-5.0) g/dL Urine Color Light Yellow Urine Appearance Clear (Clear) Urine pH 5.5 (5.0-8.0) Ur Specific [place] 1.004 (1.001-1.035) Urine Protein Negative (Negative) Urine Glucose (UA) Negative (Negative) Urine Ketones Negative (Negative) Urine Blood Negative (Negative) Urine Nitrite Negative (Negative) Urine Bilirubin Negative (Negative) Urine Urobilinogen <2.0 (<2.0) mg/dL Ur Leukocyte Esterase Negative (Negative) 09/28/20 Range/Units 06:24 WBC (3.8-10.6) k/uL RBC (3.80-5.40) m/uL Hgb (11.4-16.0) gm/dL Hct (34.0-46.0) % MCV (80.0-100.0) fL MCH (25.0-35.0) pg MCHC (31.0-37.0) g/dL RDW (11.5-15.5) % Plt Count (150-450) k/uL MPV Neutrophils % % Lymphocytes % % Monocytes % % Eosinophils % % Basophils % % Neutrophils # (1.3-7.7) k/uL Lymphocytes # (1.0-4.8) k/uL Monocytes # (0-1.0) k/uL Eosinophils # (0-0.7) k/uL Basophils # (0-0.2) k/uL Macrocytosis Sodium (137-145) mmol/L Potassium (3.5-5.1) mmol/L Chloride (98-107) mmol/L Carbon Dioxide (22-30) mmol/L Anion Gap mmol/L BUN (7-17) mg/dL Creatinine (0.52-1.04) mg/dL Est GFR (CKD-EPI)AfAm (>60 ml/min/1.73 sqM) Est GFR (CKD-EPI)NonAf (>60 ml/min/1.73 sqM) Glucose (74-99) mg/dL Calcium (8.4-10.2) mg/dL Magnesium (1.6-2.3) mg/dL Total Bilirubin (0.2-1.3) mg/dL AST (14-36) U/L ALT (4-34) U/L Alkaline Phosphatase (38-126) U/L Troponin I <0.012 (0.000-0.034) ng/mL Total Protein (6.3-8.2) g/dL Albumin (3.5-5.0) g/dL Urine Color Urine Appearance (Clear) Urine pH (5.0-8.0) Ur Specific [place] (1.001-1.035) Urine Protein (Negative) Urine Glucose (UA) (Negative) Urine Ketones (Negative) Urine Blood (Negative) Urine Nitrite (Negative) Urine Bilirubin (Negative) Urine Urobilinogen (<2.0) mg/dL Ur Leukocyte Esterase (Negative) Disposition Clinical Impression: Fall, Dizziness, Near syncope Disposition: ADMITTED IP TO THIS [facility] Condition: Fair Additional Instructions: Please return to the Emergency Department if symptoms worsen or any other concerns. Prescriptions: Meclizine [Antivert] 25 mg PO TID PRN #15 tab PRN Reason: Vertigo Referrals: Donta Dukes III, MD [Primary Care Provider] - 1-2 days
[2020-09-28] MEDS ORDERED: NALOXONE 0.4 MG/ML 1 ML VIAL IV PRN (08:49)
[2020-09-28] MEDS: LEVOTHYROXINE 25 MCG TAB PO SCH (13:22)
--- NOTE | 2020-09-28 14:07 | P.CRDCN ---
History of Present Illness Consult date: 09/28/20 History of present illness: HISTORY OF PRESENT ILLNESS: This is a 85-year-old female with a past medical history significant for hypertension, hyperlipidemia, breast cancer with metastases to the bone on oral maintenance therapy, and an episode of atrial fibrillation 15 years ago. Patient follows in the office with Dr. Christianson but states she has not been to the office in quite a few years. We have been asked to see the patient in consultation for syncope. Patient examined at the bedside in the emergency room. Patient states she got up this morning around 4 AM to use the bathroom. She was sitting on the side of the bed and she started to feel dizzy. Patient states that she then sat on the side of the bed for a while till she started feeling better. She then stood up and initially was feeling okay and then got dizzy again and passed out. Patient denies LOC. Patient states she was unable to it above the floor secondary to having bilateral knee replacements. Patient called EMS who brought her to the hospital for further evaluation. Patient denies having any previous episodes of syncope before. Patient does report issues in the past with dehydration causing his anus. Patient states that she feels good now on his has not had any further dizziness or lightheadedness. She denies shortness of breath. She denies chest pain or pressure. EKG reveals sinus mechanism with PVCs. Right bundle-branch block. CT brain: Negative for acute abnormality Laboratory data: WBC 2.6. Hemoglobin 12.5. Platelet count 134. Sodium 140. Potassium 3.6. BUN 17. Creatinine 0.63. Troponin negative 1. Current home cardiac medications include aspirin 325 mg daily, valsartan /hydrochlorothiazide 160-12.5 mg daily, and simvastatin 10 mg daily Echocardiogram completed in 2013 revealing ejection fraction 55-60% with mild tricuspid regurgitation REVIEW OF SYSTEMS: At the time of my exam: CONSTITUTIONAL: Denies fever or chills. HEENT: Denies blurred vision, vision changes, or eye pain. Denies hemoptysis CARDIOVASCULAR: Denies chest pain. Denies orthopnea. Denies PND. Denies palpitations RESPIRATORY: Denies shortness of breath. GASTROINTESTINAL: Denies abdominal pain. Denies nausea or vomiting. HEMATOLOGIC: Denies bleeding disorders. GENITOURINARY: Denies any blood in urine. SKIN: Denies pruitis. Denies rash. PHYSICAL EXAM: VITAL SIGNS: Reviewed. GENERAL: Well-developed in no acute distress. HEENT: Head is normocephalic. Pupils are equal, round. Sclerae anicteric. Mucous membranes of the mouth are moist. Neck supple. No JVD or thyromegaly LUNGS: Respirations even and unlabored. Lungs essentially clear to auscultation bilaterally. HEART: Regular rate and rhythm. S1 and S2 heard. ABDOMEN: Soft. Nondistended. Nontender. EXTREMITIES: Normal range of motion. No clubbing or cyanosis. Peripheral pulses intact. No lower extremity edema NEUROLOGIC: Awake and alert. Oriented x 3. ASSESSMENT: Dizziness Syncope Hypertension Hyperlipidemia Breast cancer with mets to the bone Isolated episode of atrial fibrillation 15 years ago PLAN: Continue telemetry monitoring Check TSH Obtain 2D echo to assess cardiac structure and function Continue to monitor patient overnight If patient remains stable she may be discharged home tomorrow with an event monitor from the office Further recommendations pending patient's course Nurse practitioner note has been reviewed by physician. Signing provider agrees with the documented findings, assessment, and plan of care. Past Medical History Past Medical History: Atrial Fibrillation, Hyperlipidemia, Hypertension, Osteoarthritis (OA), Thyroid Disorder Additional Past Medical History / Comment(s): HERNIATED DISC, SLIGTH INCONT OF URINE, R sided mets breast cancer 02/2019 History of Any Multi-Drug Resistant Organisms: None Reported Past Surgical History: Hysterectomy, Joint Replacement Additional Past Surgical History / Comment(s): (R) lumpectomy, CATARACTS DOLORES,- LENS IMPLANT, DOLORES KNEE REPLACEMENTS, DENTAL IMPLANT. Past Anesthesia/Blood Transfusion Reactions: No Reported Reaction Past Psychological History: No Psychological Hx Reported Smoking Status: Never smoker Past Alcohol Use History: None Reported Past Drug Use History: None Reported - Past Family History Mother Additional Family Medical History / Comment(s): Mother had respiratory illnesses Father Family Medical History: Cancer Medications and Allergies Home Medications Medication Instructions Recorded Confirmed Type Cyanocobalamin [Vitamin B-12] 1,000 mcg PO DAILY 10/27/13 09/28/20 History Multivitamins, Thera [Multivitamin 1 tab PO DAILY 10/27/13 09/28/20 History (formulary)] Aspirin 325 mg PO DAILY 07/30/14 09/28/20 History [place]-3 Fatty Acids/Fish Oil [Fish 1 cap PO DAILY 07/30/14 09/28/20 History Oil 1,000 mg Softgel] Valsartan/Hydrochlorothiazide 0.5 tab PO DAILY 07/30/14 09/28/20 History [Valsartan-Hctz 160-12.5 mg Tab] Letrozole 2.5 mg PO DIRECTED 12/07/19 09/28/20 History Levothyroxine Sodium 25 mcg PO MOTUWETHFR 09/07/20 09/28/20 History Calcium Carbonate 1,000 mg PO DAILY 09/28/20 09/28/20 History Cetirizine HCl [Zyrtec] 10 mg PO HS 09/28/20 09/28/20 History Levothyroxine Sodium [Synthroid] 50 mcg PO SUSA 09/28/20 09/28/20 History Simvastatin [Zocor] 10 mg PO HS 09/28/20 09/28/20 History Xgeva 120 mg INJ Q84D 09/28/20 09/28/20 History Allergies Allergy/AdvReac Type Severity Reaction Status Date / Time Cephalosporins Allergy Rash/Hives Verified 09/28/20 09:08 bacitracin AdvReac Unknown Verified 09/28/20 09:08 mold AdvReac Itching Verified 09/28/20 09:08 pollen extracts AdvReac Itching Verified 09/28/20 09:08 Physical Exam Vitals: Vital Signs Temp Pulse Resp BP Pulse Ox 09/28/20 11:27 60 16 103/61 95 09/28/20 08:57 98.1 F 57 L 15 120/68 98 09/28/20 07:40 64 16 118/63 98 09/28/20 05:50 98.3 F 58 L 20 146/84 100 Intake and Output 09/27/20 09/28/20 09/28/20 22:59 06:59 14:59 Other: Weight 83.007 kg Results 09/28/20 06:24 09/28/20 06:24 Cardiac Enzymes 09/28/20 09/28/20 Range/Units 06:24 06:24 AST 31 (14-36) U/L Troponin I <0.012 (0.000-0.034) ng/mL CBC 09/28/20 Range/Units 06:24 WBC 2.6 L (3.8-10.6) k/uL RBC 3.40 L (3.80-5.40) m/uL Hgb 12.5 (11.4-16.0) gm/dL Hct 35.4 (34.0-46.0) % Plt Count 134 L (150-450) k/uL Comprehensive Metabolic Panel 09/28/20 Range/Units 06:24 Sodium 140 (137-145) mmol/L Potassium 3.6 (3.5-5.1) mmol/L Chloride 104 (98-107) mmol/L Carbon Dioxide 29 (22-30) mmol/L BUN 17 (7-17) mg/dL Creatinine 0.63 (0.52-1.04) mg/dL Glucose 90 (74-99) mg/dL Calcium 9.2 (8.4-10.2) mg/dL AST 31 (14-36) U/L ALT 13 (4-34) U/L Alkaline Phosphatase 47 (38-126) U/L Total Protein 6.3 (6.3-8.2) g/dL Albumin 3.7 (3.5-5.0) g/dL Current Medications Generic Name Dose Route Start Last Admin Trade Name Freq PRN Reason Stop Dose Admin Aspirin 81 mg 09/29/20 09:00 Aspirin 81 Mg PO DAILY [facility] Atorvastatin Calcium 10 mg 09/28/20 21:00 Atorvastatin 10 Mg Tab PO HS [facility] Calcium Carbonate/Glycine 1,000 mg 09/29/20 09:00 Calcium Carbonate 500 Mg Chewable PO DAILY [facility] Cyanocobalamin 1,000 mcg 09/29/20 09:00 Cyanocobalamin 500 Mcg Tab PO DAILY [facility] Letrozole 2.5 mg 09/30/20 09:00 Letrozole 2.5 Mg Tab PO 10/21/20 23:00 DAILY [facility] Levothyroxine Sodium 25 mcg 09/28/20 11:00 Levothyroxine 25 Mcg Tab PO [id number] [facility] Levothyroxine Sodium 50 mcg 10/01/20 06:30 Levothyroxine 50 Mcg Tab PO SUSA [facility] Loratadine 10 mg 09/28/20 21:00 Loratadine 10 Mg Tab PO HS [facility] Multivitamins 1 each 09/29/20 09:00 Multivitamins, Thera 1 Each Tab PO DAILY [facility] Naloxone HCl 0.2 mg 09/28/20 08:49 Naloxone 0.4 Mg/Ml 1 Ml Vial IV Q2M PRN Opioid Reversal Intake and Output 09/27/20 09/28/20 09/28/20 22:59 06:59 14:59 Other: Weight 83.007 kg 09/28/20 06:24 09/28/20 06:24
--- NOTE | 2020-09-28 14:08 | P.HPIM ---
History of Present Illness 85-year-old pleasant elderly female came in with comments of dizziness and patient felt dizzy and did have a fall and try to get up again and felt dizzy again. Patient the blood pressure is within normal lives patient is on anti-coates ppens medications. EKG did not show any significant abnormality although on telemetry patient was having PACs with compensative causes beyond that no other significant abnormality was present. Patient had history of metastatic breast cancer which appears to be in remission at this time. Patient doesn't have an echocardiogram available in the system since 2013. Patient doesn't have any murmur clinically. All the workup is so for negative. Patient lives by herself most of patient's family members are in [place] and patient is willing to go to assisted living with possible. Review of Systems REVIEW OF SYSTEMS: CONSTITUTIONAL: No fever, no malaise, no fatigue. HEENT: No recent visual problems or hearing problems. Denied any sore throat. CARDIOVASCULAR: No chest pain, orthopnea, PND, no palpitations, no syncope. PULMONARY: No shortness of breath, no cough, no hemoptysis. GASTROINTESTINAL: No diarrhea, no nausea, no vomiting, no abdominal pain. NEUROLOGICAL: No headaches, no weakness, no numbness. HEMATOLOGICAL: Denies any bleeding or petechiae. GENITOURINARY: Denies any burning micturition, frequency, or urgency. MUSCULOSKELETAL/RHEUMATOLOGICAL: Denies any joint pain, swelling, or any muscle pain. ENDOCRINE: Denies any polyuria or polydipsia. The rest of the 14-point review of systems is negative. Past Medical History Past Medical History: Atrial Fibrillation, Hyperlipidemia, Hypertension, Oste oarthritis (OA), Thyroid Disorder Additional Past Medical History / Comment(s): HERNIATED DISC, SLIGTH INCONT OF URINE, R sided mets breast cancer 02/2019 History of Any Multi-Drug Resistant Organisms: None Reported Past Surgical History: Hysterectomy, Joint Replacement Additional Past Surgical History / Comment(s): (R) lumpectomy, CATARACTS DOLORES,- LENS IMPLANT, DOLORES KNEE REPLACEMENTS, DENTAL IMPLANT. Past Anesthesia/Blood Transfusion Reactions: No Reported Reaction Past Psychological History: No Psychological Hx Reported Smoking Status: Never smoker Past Alcohol Use History: None Reported Past Drug Use History: None Reported - Past Family History Mother Additional Family Medical History / Comment(s): Mother had respiratory illnesses Father Family Medical History: Cancer Medications and Allergies Home Medications Medication Instructions Recorded Confirmed Type Cyanocobalamin [Vitamin B-12] 1,000 mcg PO DAILY 10/27/13 09/28/20 History Multivitamins, Thera [Multivitamin 1 tab PO DAILY 10/27/13 09/28/20 History (formulary)] Aspirin 325 mg PO DAILY 07/30/14 09/28/20 History [place]-3 Fatty Acids/Fish Oil [Fish 1 cap PO DAILY 07/30/14 09/28/20 History Oil 1,000 mg Softgel] Valsartan/Hydrochlorothiazide 0.5 tab PO DAILY 07/30/14 09/28/20 History [Valsartan-Hctz 160-12.5 mg Tab] Letrozole 2.5 mg PO DIRECTED 12/07/19 09/28/20 History Levothyroxine Sodium 25 mcg PO MOTUWETHFR 09/07/20 09/28/20 History Calcium Carbonate 1,000 mg PO DAILY 09/28/20 09/28/20 History Cetirizine HCl [Zyrtec] 10 mg PO HS 09/28/20 09/28/20 History Levothyroxine Sodium [Synthroid] 50 mcg PO SUSA 09/28/20 09/28/20 History Simvastatin [Zocor] 10 mg PO HS 09/28/20 09/28/20 History Xgeva 120 mg INJ Q84D 09/28/20 09/28/20 History Allergies Allergy/AdvReac Type Severity Reaction Status Date / Time Cephalosporins Allergy Rash/Hives Verified 09/28/20 09:08 bacitracin AdvReac Unknown Verified 09/28/20 09:08 mold AdvReac Itching Verified 09/28/20 09:08 pollen extracts AdvReac Itching Verified 09/28/20 09:08 Physical Exam Vitals: Vital Signs Temp Pulse Resp BP Pulse Ox 09/28/20 11:27 60 16 103/61 95 09/28/20 08:57 98.1 F 57 L 15 120/68 98 09/28/20 07:40 64 16 118/63 98 09/28/20 05:50 98.3 F 58 L 20 146/84 100 Intake and Output 09/27/20 09/28/20 09/28/20 22:59 06:59 14:59 Other: Weight 83.007 kg PHYSICAL EXAMINATION: GENERAL: The patient is alert and oriented x3, not in any acute distress. Well developed, well nourished. HEENT: Pupils are round and equally reacting to light. EOMI. No scleral icterus. No conjunctival pallor. Normocephalic, atraumatic. No pharyngeal erythema. No thyromegaly. CARDIOVASCULAR: S1 and S2 present. No murmurs, rubs, or gallops. PULMONARY: Chest is clear to auscultation, no wheezing or crackles. ABDOMEN: Soft, nontender, nondistended, normoactive bowel sounds. No palpable organomegaly. MUSCULOSKELETAL: No joint swelling or deformity. EXTREMITIES: No cyanosis, clubbing, or pedal edema. NEUROLOGICAL: Gross neurological examination did not reveal any focal deficits. SKIN: No rashes. Results CBC & Chem 7: 09/28/20 06:24 09/28/20 06:24 Labs: Abnormal Lab Results - Last 24 Hours (Table) 09/28/20 Range/Units 06:24 WBC 2.6 L (3.8-10.6) k/uL RBC 3.40 L (3.80-5.40) m/uL MCV 104.0 H (80.0-100.0) fL MCH 36.7 H (25.0-35.0) pg Plt Count 134 L (150-450) k/uL Neutrophils # 1.1 L (1.3-7.7) k/uL Assessment and Plan Plan: -Dizziness with the of fall: Patient will undergo workup with the echo cardiac to evaluate any valvular abnormalities and monitored overnight looking for any rhythm abnormalities and probably hold monitored. Patient's antidepressive medications will be held. Patient probably will need a higher blood pressure than 1 20 /60 which is presently her blood pressure. Physical therapy and occupational therapy will evaluate the patient. Patient will be evaluated for placement to assisted living. TSH will be obtained patient does have history of hypothyroidism -Elevated MCV along with pancytopenia: Will obtain B12 levels -Atrial fibrillation is documented in her history presently sinus rhythm presently not on any anticoagulation -Hyperlipidemia -Hypertension -Hypothyroidism -DVT prophylaxis Lovenox
[2020-09-28] MEDS ORDERED: ATORVASTATIN 10 MG TAB PO SCH (21:00)
[2020-09-28] MEDS ORDERED: LORATADINE 10 MG TAB PO SCH (21:00)
[2020-09-29] MEDS: LEVOTHYROXINE 25 MCG TAB PO SCH (06:16)
[2020-09-29] MEDS ORDERED: CYANOCOBALAMIN 500 MCG TAB PO SCH (09:00)
[2020-09-29] MEDS ORDERED: ASPIRIN 81 MG PO SCH (09:00)
[2020-09-29] MEDS ORDERED: CALCIUM CARBONATE 500 MG CHEWABLE PO SCH (09:00)
[2020-09-29] MEDS ORDERED: NON FORMULARY DRUG (Omega-3 Fatty Acids/Fish Oil [Fish Oil 1,000 Mg Softgel] 1 EACH Capsul PO SCH (09:00)
[2020-09-29] MEDS ORDERED: MULTIVITAMINS, THERA 1 EACH TAB PO SCH (09:00)
--- NOTE | 2020-09-29 10:49 | ECHOF ---
Referral Reason:near-syncope MEASUREMENTS -------- HEIGHT: 165.1 cm WEIGHT: 83.0 kg BP: 102/60 RVIDd: 3.4 cm (< 3.3) IVSd: 1.2 cm (0.6 - 1.1) LVIDd: 4.1 cm (3.9 - 5.3) LVPWd: 1.2 cm (0.6 - 1.1) IVSs: 1.4 cm LVIDs: 3.0 cm LVPWs: 1.6 cm LA Diam: 4.0 cm (2.7 - 3.8) LAESV Index (A-L): 35.43 ml/m Ao Diam: 3.4 cm (2.0 - 3.7) AV Cusp: 1.5 cm (1.5 - 2.6) LA Diam: 3.6 cm (2.7 - 3.8) MV EXCURSION: 15.271 mm (> 18.000) MV EF SLOPE: 65 mm/s (70 - 150) EPSS: 0.6 cm MV E Zia: 0.75 m/s MV DecT: 250 ms MV A Zia: 1.05 m/s MV E/A Ratio: 0.72 RAP: 5.00 mmHg RVSP: 27.38 mmHg FINDINGS -------- Sinus rhythm. This was a technically good study. LV size, wall thickness and systolic function are normal, with an EF greater than 55%. The left clayton tricular size is normal. The right ventricle is normal in size. LA is moderately dilated 34-39 ml/m2 The right atrial size is normal. There is mild aortic valve sclerosis. Mild mitral regurgitation is present. Mild tricuspid regurgitation present. Right ventricular systolic pressure is normal at < 35 mmHg. There is no pulmonic regurgitation present. The aortic root size is normal. There is no pericardial effusion. CONCLUSIONS -------- 1. LV size, wall thickness and systolic function are normal, with an EF greater than 55%. 2. The left ventricular size is normal. 3. The right ventricle is normal in size. 4. LA is moderately dilated 34-39 ml/m2 5. The right atrial size is normal. 6. There is mild aortic valve sclerosis. 7. Mild mitral regurgitation is present. 8. Mild tricuspid regurgitation present. 9. The aortic root size is normal. 10. There is no pericardial effusion. LEARNING DISABILITIES SPECIALIST: Anisha Ruiz RDCS
--- NOTE | 2020-09-29 11:06 | P.PN ---
Subjective This is a pleasant 85-year-old female past medical history significant for hypertension, dyslipidemia, breast cancer with metastasis to the bone in an episode of atrial fibrillation 15 years ago. She follows in the office with Dr. Christianson. She is seen and examined sitting up in bed in no acute distress and she has had no further symptoms of dizziness or syncope since arriving at the hospital. She denies chest pain, dizziness or palpitations. Blood pressure 102/60 heart rate 83 afebrile maintaining oxygen saturation on room air. Echocardiogram obtained reveals preserved LV systolic function with ejection fraction 55%, moderately dilated left atrium, mild MR and mild TR. GENERAL: Well-appearing, well-nourished and in no acute distress. NECK: Supple without JVD or thyromegaly. Soft bilateral carotid bruit noted. LUNGS: Breath sounds clear to auscultation bilaterally. Respiration equal and unlabored. No wheezes, rales or rhonchi. HEART: Regular rate and rhythm with systolic ejection murmur at the base, no rubs or gallops. S1 and S2 heard. EXTREMITIES: Normal range of motion, no edema. No clubbing or cyanosis. Peripheral pulses intact. ASSESSMENT Syncope Hypertension Dyslipidemia Breast cancer with metastasis to the bone Isolated episode of atrial fibrillation 15 years ago PLAN Telemetry tracings reviewed, she has had persistent sinus mechanism with no arrhythmia or significant pauses noted. Apply outpatient event monitor, reported Dr. Christianson. Stable for transfer to rehab facility. Follow-up in the office with Dr. Christianson in 4-6 weeks. Nurse Practitioner note has been reviewed, I agree with a documented findings and plan of care. Patient was seen and examined. Objective - Vital Signs Vital signs: Vital Signs Temp 97.8 F 09/29/20 04:42 Pulse 83 09/29/20 04:42 Resp 16 09/29/20 04:42 BP 102/60 09/29/20 04:42 Pulse Ox 94 L 09/29/20 04:42 Intake & Output 09/28/20 09/29/20 09/29/20 18:59 06:59 18:59 Intake Total 250 Balance 250 Weight 83.007 kg Intake: Oral 250 Other: # Voids 1 2 # Bowel Movements 0 - Labs CBC & Chem 7: 09/28/20 06:24 09/28/20 06:24
[2020-09-29 12:01] VITALS: BP 139/83; PULSE 66; RESP 17; TEMP 97.7
--- NOTE | 2020-09-29 16:20 | P.DS ---
Providers Date of admission: 09/28/20 08:48 Expected date of discharge: 09/29/20 Attending physician: Cynthia Lea Consults: 09/28/20 08:49 Consult Physician Urgent Consulting Provider: Kuldeep Lozano Consult Reason/Comments: near syncope, bradycardia Do you want consulting provider notified?: Yes Primary care physician: Donta Dukes [facility] Course: Final diagnosis -Dizziness with fall -Elevated MCV along with pancytopenia, vitamin B12 normal -Atrial fibrillation is documented in her history presently sinus rhythm presently not on any anticoagulation -Hyperlipidemia -Hypertension -Hypothyroidism -DVT prophylaxis Discharge disposition Patient is being discharged in a stable condition with guarded prognosis to home. Patient will follow-up with Dr. Dukes in the outpatient setting upon discharge. Patient is to follow-up with Dr. Christianson in 6 weeks and will continue with an event monitor on discharge. Patient instructed to hold blood pressure medication and monitor blood pressure readings daily for primary care follow-up. Total time taken is greater than 35 minutes. Hospital course 85-year-old pleasant elderly female came in with comments of dizziness and patient felt dizzy and did have a fall and try to get up again and felt dizzy again. Patient the blood pressure is within normal lives patient is on anti- happens medications. EKG did not show any significant abnormality although on telemetry patient was having PACs with compensative causes beyond that no other significant abnormality was present. Patient had history of metastatic breast cancer which appears to be in remission at this time. Patient doesn't have an echocardiogram available in the system since 2013. Patient doesn't have any murmur clinically. All the workup is so for negative. Patient lives by herself most of patient's family members are in [place] and patient is willing to go to assisted living with possible. 09/29/2020 Patient is seen in follow-up this morning with no acute overnight issues. Patient underwent 2-D echo showing systolic function is normal with an EF greater than 55% with some mild mitral and tricuspid regurgitation present. She denies any further dizziness or episodes of syncope and states she feels quite well and would like to go home. Patient will follow-up with cardiology Dr. Christianson outpatient in 6 weeks and will continue with an event monitor on discharge. Patient does take lisinopril/Zestoretic and instructed to hold is continuing to have low blood pressure readings and monitor blood pressure daily and keep a diary for primary care follow-up. Seen and evaluated by PT/OT therapy and would not qualify for rehab. Patient is independent with no gait dysfunction noted. Patient plans to discuss with family further about possible assisted living facility in the future as she does live alone. Currently no reports of chest pain, shortness of breath, or palpitations. Patient is afebrile. No reports of nausea or vomiting and patient is tolerating diet. Patient will be discharged home today. On exam vital signs are stable. Cardio S1, S2 are muffled. Respiratory system shows diminished breath sounds at the bases with no wheezing or rhonchi noted. Abdomen is soft and nontender. Nervous system shows no focal deficits. Please refer to medication reconciliation sheet for a list of medications. Patient Condition at Discharge: Fair Plan - Discharge Summary Discharge Rx Participant: No New Discharge Prescriptions: Continue Multivitamins, Thera [Multivitamin (formulary)] 1 tab PO DAILY Cyanocobalamin [Vitamin B-12] 1,000 mcg PO DAILY Aspirin 325 mg PO DAILY [place]-3 Fatty Acids/Fish Oil [Fish Oil 1,000 mg Softgel] 1 cap PO DAILY Valsartan/Hydrochlorothiazide [Valsartan-Hctz 160-12.5 mg Tab] 0.5 tab PO DAILY Letrozole 2.5 mg PO DIRECTED Simvastatin [Zocor] 10 mg PO HS Calcium Carbonate 1,000 mg PO DAILY Levothyroxine Sodium 25 mcg PO MOTUWETHFR Levothyroxine Sodium [Synthroid] 50 mcg PO SUSA Xgeva 120 mg INJ Q84D Cetirizine HCl [Zyrtec] 10 mg PO HS Discharge Medication List Cyanocobalamin [Vitamin B-12] 1,000 mcg PO DAILY 10/27/13 [History] Multivitamins, Thera [Multivitamin (formulary)] 1 tab PO DAILY 10/27/13 [History] Aspirin 325 mg PO DAILY 07/30/14 [History] [place]-3 Fatty Acids/Fish Oil [Fish Oil 1,000 mg Softgel] 1 cap PO DAILY 07/30/14 [History] Valsartan/Hydrochlorothiazide [Valsartan-Hctz 160-12.5 mg Tab] 0.5 tab PO DAILY 07/30/14 [History] Letrozole 2.5 mg PO DIRECTED 12/07/19 [History] Levothyroxine Sodium 25 mcg PO MOTUWETHFR 09/07/20 [History] Calcium Carbonate 1,000 mg PO DAILY 09/28/20 [History] Cetirizine HCl [Zyrtec] 10 mg PO HS 09/28/20 [History] Levothyroxine Sodium [Synthroid] 50 mcg PO SUSA 09/28/20 [History] Simvastatin [Zocor] 10 mg PO HS 09/28/20 [History] Xgeva 120 mg INJ Q84D 09/28/20 [History] Follow up Appointment(s)/Referral(s): Yeny Christianson MD [STAFF PHYSICIAN] - 11/11/20 10:30 am Donta Dukes III, MD [Primary Care Provider] - 10/03/20 2:00 pm (You will see Gretel.) Patient Instructions/Handouts: Heart Healthy Diet (DC), Fall Prevention for Older Adults (DC), Near Syncope (DC), Dizziness (ED), Holter Monitor (GEN) Activity/Diet/Wound Care/Special Instructions: Event monitor on discharge per cardiology recommendations Follow-up cardiology outpatient Follow-up with primary care provider upon discharge Continue to hold blood pressure medication if having low blood pressure readings and keep a diary for primary care follow-up Continue current diet Activity Limited until follow-up Please return to the Emergency Department if symptoms worsen or any other concerns. Discharge Disposition: HOME SELF-CARE
[2020-09-30] MEDS ORDERED: LETROZOLE 2.5 MG TAB PO SCH (09:00)
[2020-10-01] MEDS ORDERED: LEVOTHYROXINE 50 MCG TAB PO SCH (06:30)
== END 2020-09-29 15:38 | disposition home or self-care (01) ==
LOC: EC 05:48 → INTOOBSV 08:48 → 5NMEDONC 08:48 → UNDODISIN 09-29 15:38
PROVIDERS: ADMIT Hospitalist; ATTEND Hospitalist
DX: R42 Dizziness and giddiness (principal); R55 Syncope and collapse; D61.818 Other pancytopenia; I48.91 Unspecified atrial fibrillation; E78.5 Hyperlipidemia, unspecified; I10 Essential (primary) hypertension; E03.9 Hypothyroidism, unspecified; C50.919 Malignant neoplasm of unspecified site of unspecified female breast; C79.51 Secondary malignant neoplasm of bone; R11.0 Nausea; W19.XXXA Unspecified fall, initial encounter; I49.3 Ventricular premature depolarization; M19.90 Unspecified osteoarthritis, unspecified site; Z20.822 Contact with and (suspected) exposure to COVID-19; Z79.82 Long term (current) use of aspirin; Z79.890 Hormone replacement therapy; Z79.899 Other long term (current) drug therapy; J30.1 Allergic rhinitis due to pollen; Z88.1 Allergy status to other antibiotic agents; Z91.048 Other nonmedicinal substance allergy status; Z85.3 Personal history of malignant neoplasm of breast; Z90.710 Acquired absence of both cervix and uterus; Z96.653 Presence of artificial knee joint, bilateral; Z80.9 Family history of malignant neoplasm, unspecified; Z83.6 Family history of other diseases of the respiratory system
CPT/HCPCS: 96361; 96374; 99285; 36415; 93005; 93306; 93270; 97162; 97166; 80053; 84443; 82607; 83735; 84484; 85025; 81003; 87635; 70450; G0378 ×2; J2405

== ENCOUNTER 2020-10-01 13:18 | Observation (INO) | payer MEDICARE ==
--- NOTE | 2020-10-01 13:38 | ED ---
General Adult HPI - General Chief complaint: Fall Stated complaint: Fall Time Seen by Provider: 10/01/20 13:23 Source: EMS Mode of arrival: EMS Limitations: no limitations - History of Present Illness Initial comments: Dictation was produced using [employer] dictation software. please excuse any grammatical, word or spelling errors. Chief Complaint: 85 y Old female who was just discharged for syncope presents to the emergency department after fall History of Present Illness: 85-year-old female presents to the emergency department for fall. Patient states she was at home she decided to walk to the side to make a turn. She states she felt out. Denies tripping over anything. She has a heart monitor on her chest currently. She was recently discharged for syncope and bradycardia. Patient states she does have some mild pain to the left side of her head. She denies any loss of consciousness. She has no other pain complaints. The ROS documented in this emergency department record has been reviewed and confirmed by me. Those systems with pertinent positive or negative responses have been documented in the HPI. All other systems are other negative and/or noncontributory. PHYSICAL EXAM: General Impression: Alert and oriented x3, not in acute distress HEENT: Normocephalic atraumatic, extra-ocular movements intact, pupils equal and reactive to light bilaterally, mucous membranes moist. Cardiovascular: Heart regular rate and rhythm Chest: Able to complete full sentences, no retractions, no tachypnea Abdomen: abdomen soft, non-tender, non-distended, no organomegaly Musculoskeletal: Pulses present and equal in all extremities, no peripheral edema Motor: no focal deficits noted Neurological: CN II-XII grossly intact, no focal motor or sensory deficits noted Skin: Intact with no visualized rashes Psych: Normal affect and mood ED course: 85-year-old female presents after syncope and fall. Vital signs Upon arrival are within acceptable limits. Laboratory evaluation obtained. CBC, metabolic panel is unremarkable. Covid Negative. Troponins negative. There is concern of syncope versus presyncope. Patient will be readmitted. Case discussed Dr. Lea. Cardiology consulted. EKG interpretation: Ventricular rate 59, sinus bradycardia,. Interval 182, QRS 142, QTC 473.. No MS prolongation, no QTC prolongation, no ST or T-wave changes noted. EKG compared to 09/28/2020 showing no changes. Overall, this EKG is unremarkable - Related Data Home Medications Medication Instructions Recorded Confirmed Cyanocobalamin [Vitamin B-12] 1,000 mcg PO HS 10/27/13 10/01/20 Multivitamins, Thera [Multivitamin 1 tab PO HS 10/27/13 10/01/20 (formulary)] Aspirin 325 mg PO HS 07/30/14 10/01/20 [place]-3 Fatty Acids/Fish Oil [Fish 1 cap PO HS 07/30/14 10/01/20 Oil 1,000 mg Softgel] Valsartan/Hydrochlorothiazide 0.5 tab PO HS 07/30/14 10/01/20 [Valsartan-Hctz 160-12.5 mg Tab] Letrozole 2.5 mg PO DAILY 12/07/19 10/01/20 Levothyroxine Sodium 25 mcg PO MOTUWETHFR 09/07/20 10/01/20 Calcium Carbonate 1,000 mg PO HS 09/28/20 10/01/20 Cetirizine HCl [Zyrtec] 10 mg PO HS 09/28/20 10/01/20 Levothyroxine Sodium [Synthroid] 50 mcg PO SUSA 09/28/20 10/01/20 Simvastatin [Zocor] 10 mg PO HS 09/28/20 10/01/20 Xgeva 120 mg INJ Q84D 09/28/20 10/01/20 Palbociclib [Ibrance] See Taper PO DAILY 10/01/20 10/01/20 Allergies Allergy/AdvReac Type Severity Reaction Status Date / Time Cephalosporins Allergy Rash/Hives Verified 10/01/20 15:09 bacitracin AdvReac Unknown Verified 10/01/20 15:09 mold AdvReac Itching Verified 10/01/20 15:09 pollen extracts AdvReac Itching Verified 10/01/20 15:09 Review of Systems ROS Statement: Those systems with pertinent positive or pertinent negative responses have been documented in the HPI. ROS Other: All systems not noted in ROS Statement are negative. Past Medical History Past Medical History: Atrial Fibrillation, Hyperlipidemia, Hypertension, Oste oarthritis (OA), Thyroid Disorder Additional Past Medical History / Comment(s): HERNIATED DISC, SLIGTH INCONT OF URINE, R sided mets breast cancer 02/2019 History of Any Multi-Drug Resistant Organisms: None Reported Past Surgical History: Hysterectomy, Joint Replacement Additional Past Surgical History / Comment(s): (R) lumpectomy, CATARACTS DOLORES,- LENS IMPLANT, DOLORES KNEE REPLACEMENTS, DENTAL IMPLANT. Past Anesthesia/Blood Transfusion Reactions: No Reported Reaction Past Psychological History: No Psychological Hx Reported Smoking Status: Never smoker Past Alcohol Use History: None Reported Past Drug Use History: None Reported - Past Family History Mother Additional Family Medical History / Comment(s): Mother had respiratory illnesses Father Family Medical History: Cancer General Exam Limitations: no limitations Course Vital Signs 10/01/20 10/01/20 13:20 15:00 Temperature 98.9 F Pulse Rate 62 62 Respiratory 18 18 Rate Blood Pressure 182/94 147/90 O2 Sat by Pulse 99 98 Oximetry Medical Decision Making - Lab Data Result diagrams: 10/01/20 14:16 10/01/20 14:44 Lab Results 10/01/20 10/01/20 10/01/20 Range/Units 14:16 14:30 14:44 WBC 3.0 L (3.8-10.6) k/uL RBC 3.51 L (3.80-5.40) m/uL Hgb 12.7 (11.4-16.0) gm/dL Hct 36.8 (34.0-46.0) % MCV 104.8 H (80.0-100.0) fL MCH 36.2 H (25.0-35.0) pg MCHC 34.5 (31.0-37.0) g/dL RDW 13.8 (11.5-15.5) % Plt Count 144 L (150-450) k/uL MPV 7.7 Neutrophils % 49 % Lymphocytes % 33 % Monocytes % 11 % Eosinophils % 2 % Basophils % 1 % Neutrophils # 1.5 (1.3-7.7) k/uL Lymphocytes # 1.0 (1.0-4.8) k/uL Monocytes # 0.3 (0-1.0) k/uL Eosinophils # 0.1 (0-0.7) k/uL Basophils # 0.0 (0-0.2) k/uL Macrocytosis Slight Sodium (137-145) mmol/L Potassium (3.5-5.1) mmol/L Chloride (98-107) mmol/L Carbon Dioxide (22-30) mmol/L Anion Gap mmol/L BUN (7-17) mg/dL Creatinine (0.52-1.04) mg/dL Est GFR (CKD-EPI)AfAm (>60 ml/min/1.73 sqM) Est GFR (CKD-EPI)NonAf (>60 ml/min/1.73 sqM) Glucose (74-99) mg/dL Calcium (8.4-10.2) mg/dL Troponin I <0.012 (0.000-0.034) ng/mL Coronavirus (PCR) Not Detected (Not Detectd) 10/01/20 Range/Units 14:44 WBC (3.8-10.6) k/uL RBC (3.80-5.40) m/uL Hgb (11.4-16.0) gm/dL Hct (34.0-46.0) % MCV (80.0-100.0) fL MCH (25.0-35.0) pg MCHC (31.0-37.0) g/dL RDW (11.5-15.5) % Plt Count (150-450) k/uL MPV Neutrophils % % Lymphocytes % % Monocytes % % Eosinophils % % Basophils % % Neutrophils # (1.3-7.7) k/uL Lymphocytes # (1.0-4.8) k/uL Monocytes # (0-1.0) k/uL Eosinophils # (0-0.7) k/uL Basophils # (0-0.2) k/uL Macrocytosis Sodium 141 (137-145) mmol/L Potassium 3.6 (3.5-5.1) mmol/L Chloride 108 H (98-107) mmol/L Carbon Dioxide 26 (22-30) mmol/L Anion Gap 7 mmol/L BUN 16 (7-17) mg/dL Creatinine 0.60 (0.52-1.04) mg/dL Est GFR (CKD-EPI)AfAm >90 (>60 ml/min/1.73 sqM) Est GFR (CKD-EPI)NonAf 85 (>60 ml/min/1.73 sqM) Glucose 89 (74-99) mg/dL Calcium 9.1 (8.4-10.2) mg/dL Troponin I (0.000-0.034) ng/mL Coronavirus (PCR) (Not Detectd) Disposition Clinical Impression: Syncope Disposition: ADMITTED IP TO THIS HOSP Condition: Fair Referrals: Donta Dukes III, MD [Primary Care Provider] - 1-2 days
[2020-10-01 14:31] LABS: Basophils % (A) 1 %; Eosinophils # (A) 0.1 k/uL (0-0.7); Eosinophils % (A) 2 %; HCT 36.8 % (34.0-46.0); HGB 12.7 gm/dL (11.4-16.0); Lymphocytes % (A) 33 %; MCH 36.2 pg (25.0-35.0); MCHC 34.5 g/dL (31.0-37.0); MCV 104.8 fL (80.0-100.0); Macrocytosis Slight; Mean Platelet Volume 7.7; Monocytes # (A) 0.3 k/uL (0-1.0); Monocytes % (A) 11 %; Neutrophils # (A) 1.5 k/uL (1.3-7.7); Neutrophils % (A) 49 %; Platelet Count 144 k/uL (150-450); RBC 3.51 m/uL (3.80-5.40); RDW 13.8 % (11.5-15.5)
--- NOTE | 2020-10-01 14:35 | CT ---
EXAMINATION TYPE: CT brain [place] wo con DATE OF EXAM: 10/01/2020 COMPARISON: CT brain 09/28/2020 HISTORY: Fall CT DLP: 1243.5 mGycm Automated exposure control for dose reduction was used. There is cerebral atrophy. There is no mass effect nor midline shift. There is no sign of intracrania l hemorrhage. There is normal aeration of the mastoid sinuses. The skull base is intact. Calvarium is intact. Cervical vertebra have fairly normal alignment. There is a few millimeter anterior subluxation of C4 in relation to C5. There is disc space narrowing at C5-6 and C6-7. Facet joints are intact. There is no compression fracture. There is bone island in the right side of the C2 vertebral body. IMPRESSION: Spondylotic changes in the cervical spine. Mild degenerative first-degree C4-5 spondylolisthesis. Cerebral atrophy. No acute intracranial abnormality. Brain unchanged compared to old exam.
--- NOTE | 2020-10-01 14:38 | XR ---
EXAMINATION TYPE: XR pelvis AP view DATE OF EXAM: 10/01/2020 COMPARISON: 07/30/2014 HISTORY: Fall. Pain. TECHNIQUE: Single view FINDINGS: Pelvic ring is intact. Proximal femurs are intact. Sacroiliac joints are intact. There is m ild acetabular spurring. There is no evidence of a fracture. There appears to be multiple areas of osteoblastic change in the bony pelvis. These measure up to 2 c m. IMPRESSION: Mild spurring. No fracture seen. 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 This appears t o be a change compared to the pelvis x-ray of 07/30/2014.
--- NOTE | 2020-10-01 14:42 | XR ---
EXAMINATION TYPE: XR chest 1V DATE OF EXAM: 10/01/2020 COMPARISON: NONE HISTORY: Fall. Pain. TECHNIQUE: FINDINGS: Heart is normal. Lungs are clear of infiltrate. There is no heart failure. Thoracic aorta i s atheromatous. There is no pleural effusion. IMPRESSION: No active cardiopulmonary disease. No change.
[2020-10-01 15:08] LABS: African American GFR (CKD) >90 (>60 ml/min/1.73 sqM); Anion Gap 7 mmol/L; Blood Urea Nitrogen 16 mg/dL (7-17); Calcium 9.1 mg/dL (8.4-10.2); Carbon Dioxide 26 mmol/L (22-30); Chloride 108 mmol/L (98-107); Glucose 89 mg/dL (74-99); Non-African American GFR(CKD) 85 (>60 ml/min/1.73 sqM); Potassium 3.6 mmol/L (3.5-5.1); Sodium 141 mmol/L (137-145)
[2020-10-01] MEDS ORDERED: NALOXONE 0.4 MG/ML 1 ML VIAL IV PRN (16:02)
[2020-10-01] MEDS: SODIUM CHLORIDE 0.9% 1,000 ML IV SCH (16:41)
--- NOTE | 2020-10-01 16:45 | HP ---
HISTORY AND PHYSICAL CHIEF COMPLAINT: Complaints of fall. HISTORY OF PRESENT ILLNESS: This is an 85-year-old woman with a past medical history of hypertension, hyperlipidemia, history atrial fibrillation, history of DJD, history of herniated disk, history of hysterectomy, being followed by Dr. Dukes. The patient recently admitted with dizziness and fall. The patient was found to have PAC system ( ) process and heart monitor was not recommended and the patient discharged home today. The patient was apparently at home, he decided to walk on the side and take a turn and then she apparently fell out but and hit a side of the face, but denied tripping or evidence of passing out. There is no history of fever, rigors. There is no history any headache, seizures at this time. PAST MEDICAL HISTORY: Atrial fibrillation, hypertension, hyperlipidemia, history of DJD, history of hypothyroidism. MEDICATIONS: Home medications are reviewed include Synthroid, Metrazol, ( ), valsartan, omega-3 fatty acids, multivitamins, Zocor, vitamin B12, diuretic, calcium carbonate, aspirin. ALLERGIES: CEPHALOSPORIN, BACITRACIN, MOLD and POLLEN. FAMILY HISTORY: History of cancer, respiratory illness in the family. SOCIAL HISTORY: No history of smoking. No alcohol intake. REVIEW OF SYSTEMS: ENT: No diminished vision, otherwise mentioned earlier. CARDIOVASCULAR: No angina or palpitations. RESPIRATORY: No hemoptysis. No cough. GI: No nausea. : No dysuria. NERVOUS SYSTEM: As mentioned earlier. ALLERGIES: No asthma or hayfever. MUSCULOSKELETAL As mentioned. HEMATOLOGY/ONCOLOGY: No history of anemia. ENDOCRINE: As mentioned earlier. CONSTITUTIONAL: As mentioned earlier. DERMATOLOGY: Negative. RHEUMATOLOGY: Negative. PSYCHIATRY: As mentioned earlier. PHYSICAL EXAM: Patient is alert oriented. Pulse 62, blood pressure 118/94, respirations 18, temperature 98.9, pulse ox 98% on room air. HEENT: Conjunctivae normal. Oral mucosa moist. NECK: No jugular venous distention. No lymph node enlargement. CARDIOVASCULAR: No history, no suspicion. RESPIRATORY: No rhonchi no crackles. ABDOMEN: Soft, nontender. No mass palpable. LEGS: No edema, no swelling. NERVOUS SYSTEM: Higher functions as mentioned earlier. Moves all 4 limbs. No focal motor or sensory deficits. SKIN: No rash. JOINTS: No active deforming arthropathy. LABS: At this time shows WBC 3 and MCV 104.8, platelets 144 and chloride is 108. COVID-19 is negative. ASSESSMENT: 1. History of fall, rule out cardiac arrhythmia. 2. Leukopenia. 3. History of atrial fibrillation possibly paroxysmal. 4. History of PACs. 5. Hypertension. 6. Hyperlipidemia. 7. History of DJD. 8. Hypothyroidism. 9. History of herniated disk. 10.History of hysterectomy. 11.History of lumpectomy. 12.Obesity with body mass of 30.5. RECOMMENDATIONS AND DISCUSSION: This 38-year-old woman who presented with multiple complex medical issues, we will monitor the patient closely continue the current management and treatment otherwise I would recommend telemetry. Orthostatic vitals. Guarded prognosis because of multiple complex medical conditions. MMODL / IJN: [id number] /
[2020-10-01 17:11] LABS: ALT 16 U/L (4-34); AST 40 U/L (14-36); African American GFR (CKD) >90 (>60 ml/min/1.73 sqM); Albumin 4.1 g/dL (3.5-5.0); Alkaline Phosphatase 49 U/L (38-126); Anion Gap 7 mmol/L; Blood Urea Nitrogen 15 mg/dL (7-17); Calcium 9.6 mg/dL (8.4-10.2); Carbon Dioxide 27 mmol/L (22-30); Chloride 108 mmol/L (98-107); Glucose 86 mg/dL (74-99); Non-African American GFR(CKD) 84 (>60 ml/min/1.73 sqM); Sodium 142 mmol/L (137-145); Total Bilirubin 0.7 mg/dL (0.2-1.3); Total Protein 6.8 g/dL (6.3-8.2)
[2020-10-01 17:15] LABS: Potassium 3.9 mmol/L (3.5-5.1)
[2020-10-01 17:16] LABS: INR 0.9 (<1.2); Partial Thromboplastin Time 22.8 sec (22.0-30.0); Prothrombin Time 9.9 sec (9.0-12.0)
[2020-10-01] MEDS: ASPIRIN 325 MG TAB PO SCH (20:55)
[2020-10-01] MEDS: MULTIVITAMINS, THERA 1 EACH TAB PO SCH (20:55)
[2020-10-01] MEDS: CALCIUM CARBONATE 500 MG CHEWABLE PO SCH (20:56)
[2020-10-01] MEDS: ATORVASTATIN 10 MG TAB PO SCH (20:56)
[2020-10-01] MEDS: traMADol 50 MG TAB PO PRN (20:56)
[2020-10-01] MEDS: CYANOCOBALAMIN 500 MCG TAB PO SCH (20:57)
[2020-10-01] MEDS ORDERED: NON FORMULARY DRUG (Omega-3 Fatty Acids/Fish Oil [Fish Oil 1,000 Mg Softgel] 1 EACH Capsul PO SCH (21:00)
[2020-10-02] MEDS ORDERED: LEVOTHYROXINE 50 MCG TAB PO SCH (06:30)
[2020-10-02] MEDS: traMADol 50 MG TAB PO PRN ×3 (07:22→20:11)
[2020-10-02] MEDS: LETROZOLE 2.5 MG TAB PO SCH (07:23)
--- NOTE | 2020-10-02 09:00 | P.CRDCN ---
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 Patient follows in the office with Dr. Christianson. We have been asked to see the patient in consultation for syncope. Patient examined at the bedside. Patient was recently hospitalized earlier this week for an episode of syncope. At that time patient had gotten up around 4 AM to use the bathroom and was feeling dizzy and as soon as she started walking she felt the ground. Patient denied losing consciousness at that time. Patient was discharged home with an event monitor. Patient states this time she was walking to the bathroom. She denies feeling dizziness or lightheadedness. She denied any chest pain or pressure. She denied shortness of breath. Patient states that she let go of her walker to get through a doorway and when she took her first she fell to the ground. She denied any dizziness this time which was different than her episode earlier this week. She states she had no warning she was about to fall. She denies losing consciousness. EKG reveals sinus bradycardia with right bundle branch block Chest xray no active cardiopulmonary disease. No change. Laboratory data: WBC 3.0. Hemoglobin 12.7. Senokot 144. Sodium 141. Potassium 3.9. BUN 15. Creatinine 0.61. Current home cardiac medications include Valsartan/HCTZ 160-12.5mg daily, Zocor 10mg, aspirin 325mg Most recent echocardiogram obtained 09/29/2020 revealed ejection fraction greater than 55%, mild mitral regurgitation, mild tricuspid regurgitation REVIEW OF SYSTEMS: At the time of my exam: CONSTITUTIONAL: Denies fever or chills. HEENT: Denies blurred vision, vision changes, or eye pain. Denies hemoptysis CARDIOVASCULAR: Denies chest pain. Denies orthopnea. Denies PND. Denies palpitations RESPIRATORY: Denies shortness of breath. GASTROINTESTINAL: Denies abdominal pain. Denies nausea or vomiting. HEMATOLOGIC: Denies bleeding disorders. GENITOURINARY: Denies any blood in urine. SKIN: Denies pruitis. Denies rash. PHYSICAL EXAM: VITAL SIGNS: Reviewed. GENERAL: Well-developed in no acute distress. HEENT: Head is normocephalic. Pupils are equal, round. Sclerae anicteric. Mucous membranes of the mouth are moist. Neck supple. No JVD or thyromegaly LUNGS: Respirations even and unlabored. Lungs essentially clear to auscultation bilaterally. HEART: Regular rate and rhythm. S1 and S2 heard. ABDOMEN: Soft. Nondistended. Nontender. EXTREMITIES: Normal range of motion. No clubbing or cyanosis. Peripheral pulses intact. No lower extremity edema NEUROLOGIC: Awake and alert. Oriented x 3. ASSESSMENT: Recent hospitalization for syncope Fall from standing without dizziness or lightheadedness Hypertension Hyperlipidemia Breast cancer with metastases to the bone Isolated episode of atrial fibrillation 15 years ago PLAN: No need to repeat echocardiogram as this was performed earlier this week TSH checked earlier this week and WNL Check orthostatics Continue telemetry monitoring Will check patients event monitor tomorrow to see if patient had any significant arrhythmias or bradycardia to account for patients symptoms Continue home cardiac medications Further recommendations pending patient's course Nurse practitioner note has been reviewed by physician. Signing provider agrees with the documented findings, assessment, and plan of care. Past Medical History Past Medical History: Atrial Fibrillation, Hyperlipidemia, Hypertension, Osteoarthritis (OA), Thyroid Disorder Additional Past Medical History / Comment(s): HERNIATED DISC, SLIGTH INCONT OF URINE, R sided mets breast cancer 02/2019 History of Any Multi-Drug Resistant Organisms: None Reported Past Surgical History: Hysterectomy, Joint Replacement Additional Past Surgical History / Comment(s): (R) lumpectomy, CATARACTS DOLORES,- LENS IMPLANT, DOLORES KNEE REPLACEMENTS, DENTAL IMPLANT. Past Anesthesia/Blood Transfusion Reactions: No Reported Reaction Past Psychological History: No Psychological Hx Reported Smoking Status: Never smoker Past Alcohol Use History: None Reported Past Drug Use History: None Reported - Past Family History Mother Additional Family Medical History / Comment(s): Mother had respiratory illnesses Father Family Medical History: Cancer Medications and Allergies Home Medications Medication Instructions Recorded Confirmed Type Cyanocobalamin [Vitamin B-12] 1,000 mcg PO HS 10/27/13 10/01/20 History Multivitamins, Thera [Multivitamin 1 tab PO HS 10/27/13 10/01/20 History (formulary)] Aspirin 325 mg PO HS 07/30/14 10/01/20 History [place]-3 Fatty Acids/Fish Oil [Fish 1 cap PO HS 07/30/14 10/01/20 History Oil 1,000 mg Softgel] Valsartan/Hydrochlorothiazide 0.5 tab PO HS 07/30/14 10/01/20 History [Valsartan-Hctz 160-12.5 mg Tab] Letrozole 2.5 mg PO DAILY 12/07/19 10/01/20 History Levothyroxine Sodium 25 mcg PO MOTUWETHFR 09/07/20 10/01/20 History Calcium Carbonate 1,000 mg PO HS 09/28/20 10/01/20 History Cetirizine HCl [Zyrtec] 10 mg PO HS 09/28/20 10/01/20 History Levothyroxine Sodium [Synthroid] 50 mcg PO SUSA 09/28/20 10/01/20 History Simvastatin [Zocor] 10 mg PO HS 09/28/20 10/01/20 History Xgeva 120 mg INJ Q84D 09/28/20 10/01/20 History Palbociclib [Ibrance] See Taper PO DAILY 10/01/20 10/01/20 History traMADol HCL [Ultram] 50 mg PO Q6HR PRN 10/01/20 10/01/20 History Allergies Allergy/AdvReac Type Severity Reaction Status Date / Time Cephalosporins Allergy Rash/Hives Verified 10/01/20 15:09 bacitracin AdvReac Unknown Verified 10/01/20 15:09 mold AdvReac Itching Verified 10/01/20 15:09 pollen extracts AdvReac Itching Verified 10/01/20 15:09 Physical Exam Vitals: Vital Signs Temp Pulse Pulse Resp BP BP Pulse Ox 10/02/20 07:00 98.0 F 56 L 16 164/80 96 10/02/20 01:13 97.9 F 63 16 146/66 96 10/02/20 00:59 18 10/01/20 20:00 71 18 10/01/20 19:15 98.3 F 71 18 143/82 97 10/01/20 18:39 97.4 F L 62 18 161/80 100 10/01/20 15:00 62 18 147/90 98 10/01/20 13:20 98.9 F 62 18 182/94 99 Intake and Output 10/01/20 10/02/20 10/02/20 22:59 06:59 14:59 Other: Voiding Method Toilet Toilet Toilet # Voids 1 1 Weight 83.007 kg Results 10/02/20 05:11 10/01/20 16:40 Cardiac Enzymes 10/01/20 10/01/20 Range/Units 14:44 16:40 AST 40 H (14-36) U/L Troponin I <0.012 (0.000-0.034) ng/mL Coagulation 10/01/20 Range/Units 16:40 PT 9.9 (9.0-12.0) sec APTT 22.8 (22.0-30.0) sec CBC 10/01/20 Range/Units 14:16 WBC 3.0 L (3.8-10.6) k/uL RBC 3.51 L (3.80-5.40) m/uL Hgb 12.7 (11.4-16.0) gm/dL Hct 36.8 (34.0-46.0) % Plt Count 144 L (150-450) k/uL Comprehensive Metabolic Panel 10/01/20 10/01/20 Range/Units 14:44 16:40 Sodium 141 142 (137-145) mmol/L Potassium 3.6 3.9 (3.5-5.1) mmol/L Chloride 108 H 108 H (98-107) mmol/L Carbon Dioxide 26 27 (22-30) mmol/L BUN 16 15 (7-17) mg/dL Creatinine 0.60 0.61 (0.52-1.04) mg/dL Glucose 89 86 (74-99) mg/dL Calcium 9.1 9.6 (8.4-10.2) mg/dL AST 40 H (14-36) U/L ALT 16 (4-34) U/L Alkaline Phosphatase 49 (38-126) U/L Total Protein 6.8 (6.3-8.2) g/dL Albumin 4.1 (3.5-5.0) g/dL Current Medications Generic Name Dose Route Start Last Admin Trade Name Freq PRN Reason Stop Dose Admin Aspirin 325 mg 10/01/20 21:00 10/01/20 20:55 Aspirin 325 Mg Tab PO 325 mg HS BINA Administration Atorvastatin Calcium 10 mg 10/01/20 21:00 10/01/20 20:56 Atorvastatin 10 Mg Tab PO 10 mg HS BINA Administration Calcium Carbonate/Glycine 1,000 mg 10/01/20 21:00 10/01/20 20:56 Calcium Carbonate 500 Mg Chewable PO 1,000 mg HS BIAN Administration Cyanocobalamin 1,000 mcg 10/01/20 21:00 10/01/20 20:57 Cyanocobalamin 500 Mcg Tab PO 1,000 mcg HS BINA Administration Sodium Chloride 1,000 mls @ 20 mls/hr 10/01/20 16:15 10/01/20 16:41 Saline 0.9% IV 20 mls/hr .Q24H BINA Administration Letrozole 2.5 mg 10/02/20 09:00 10/02/20 07:23 Letrozole 2.5 Mg Tab PO 2.5 mg DAILY BINA Administration Levothyroxine Sodium 25 mcg 10/03/20 06:30 Levothyroxine 25 Mcg Tab PO [id number] BINA Levothyroxine Sodium 50 mcg 10/02/20 06:30 10/02/20 05:29 Levothyroxine 50 Mcg Tab PO 50 mcg [id number] BINA Administration Multivitamins 1 each 10/01/20 21:00 10/01/20 20:55 Multivitamins, Thera 1 Each Tab PO 1 each HS BINA Administration Naloxone HCl 0.2 mg 10/01/20 16:02 Naloxone 0.4 Mg/Ml 1 Ml Vial IV Q2M PRN Opioid Reversal Tramadol HCl 50 mg 10/01/20 20:38 10/02/20 07:22 Tramadol 50 Mg Tab PO 50 mg Q6HR PRN Administration Pain Intake and Output 10/01/20 10/02/20 10/02/20 22:59 06:59 14:59 Other: Voiding Method Toilet Toilet Toilet # Voids 1 1 Weight 83.007 kg 10/01/20 14:16 10/01/20 16:40
[2020-10-02 09:26] LABS: HCT 32.2 % (37.2-46.3); HGB 10.9 g/dL (12.0-15.0); MCH 36.5 pg (27.0-32.0); MCHC 33.9 g/dL (32.0-37.0); MCV 107.7 fL (80.0-97.0); Mean Platelet Volume 9.8 fL (9.5-12.2); Platelet Count 143 X 10*3/uL (140-440); RBC 2.99 X 10*6/uL (4.10-5.20); RDW 13.3 % (11.5-14.5); WBC 3.13 X 10*3/uL (4.50-10.00)
[2020-10-02 10:28] LABS: Basophils # (M) 0.09 X 10*3/uL (0.00-0.10); Eosinophils # (M) 0.09 X 10*3/uL (0.04-0.35); Lymphocytes # (M) 1.19 X 10*3/uL (0.90-5.00); Macrocytosis (M) 2+; Monocytes # (M) 0.16 X 10*3/uL (0.20-1.00); Neutrophils % (M) 51 %
[2020-10-02] MEDS: SODIUM CHLORIDE 0.9% 1,000 ML IV SCH (13:08)
--- NOTE | 2020-10-02 15:53 | PN ---
PROGRESS NOTE DATE OF SERVICE: 10/02/2020. HISTORY: This 89-year-old woman who was admitted with a history of fall is being evaluated to rule out the cardiac event. Cardiology is following the patient closely. No chest pain. No palpitations. No fever. The EKG showed right bundle branch block. PAST MEDICAL HISTORY: Reviewed. PHYSICAL EXAMINATION: The patient is complaining of right shoulder pain. Pulse 77, blood pressure 147/87, respiration 18, temperature 98.2, pulse ox 94% on room air. HEENT: Conjunctivae normal. NECK: No JVD. CARDIOVASCULAR: S1 and S2. LUNGS: Breath sounds diminished at the bases. No rhonchi no crackles. ABDOMEN: Soft, nontender. NERVOUS SYSTEM: No focal deficits. LABS: WBC 3.2, hemoglobin 10.9. ASSESSMENT: 1. History of fall, rule out cardiac arrhythmia. 2. Right bundle branch block on EKG. 3. Leukopenia, secondary to chemotherapy. 4. History of atrial fibrillation possibly paroxysmal. 5. History of PACs. 6. Hypertension. 7. Hyperlipidemia. 8. History of breast cancer. 9. History of degenerative joint disease. 10.Hypothyroid history of herniated disk. 11.History of hysterectomy. 12.History of lumpectomy. 13.Obesity body mass of 30.5. RECOMMENDATIONS AND DISCUSSION: I recommend to continue current management and symptomatic treatment otherwise at this time. I would recommend repeat labs. Shoulder x-ray. Cardiology rule out possibility of any cardiac event. Prognosis guarded. MMODL / IJN: [id number] /
--- NOTE | 2020-10-02 16:09 | XR ---
EXAMINATION TYPE: XR shoulder complete RT DATE OF EXAM: 10/02/2020 COMPARISON: 07/26/2020 HISTORY: Pain TECHNIQUE: 3 views FINDINGS: There are clips at the right axilla. I see no fracture nor dislocation. The glenohumeral batsheva int is intact. IMPRESSION: Negative right shoulder exam. No change.
[2020-10-02] MEDS: ASPIRIN 325 MG TAB PO SCH (20:10)
[2020-10-02] MEDS: CALCIUM CARBONATE 500 MG CHEWABLE PO SCH (20:10)
[2020-10-02] MEDS: ATORVASTATIN 10 MG TAB PO SCH (20:10)
[2020-10-02] MEDS: CYANOCOBALAMIN 500 MCG TAB PO SCH (20:11)
[2020-10-02] MEDS: MULTIVITAMINS, THERA 1 EACH TAB PO SCH (20:11)
[2020-10-03] MEDS: traMADol 50 MG TAB PO PRN ×2 (02:57→08:34)
[2020-10-03] MEDS: LEVOTHYROXINE 25 MCG TAB PO SCH (05:21)
[2020-10-03] MEDS: LETROZOLE 2.5 MG TAB PO SCH (08:40)
[2020-10-03] MEDS: METOPROLOL TARTRATE 12.5 MG TAB PO SCH ×2 (11:28→20:42)
[2020-10-03] MEDS: HYDROcodone/APAP 5-325MG 1 EACH TAB PO PRN ×2 (11:28→20:41)
--- NOTE | 2020-10-03 12:34 | P.PN ---
Subjective This is a 85-year-old female with a past medical history significant for hypertension, hyperlipidemia and breast cancer with metastasis to the bone on oral maintenance therapy and episode of atrial fibrillation 15 years ago. Patient follows in the office with Dr. Christianson. We have been asked to see the patient in consultation for syncope. Patient examined at the bedside. Patient was recently hospitalized earlier this week for an episode of syncope. At that time patient had gotten up around 4 AM to use the bathroom and was feeling dizzy and as soon as she started walking she felt the ground. Patient denied losing consciousness at that time. Patient was discharged home with an event monitor. Patient states this time she was walking to the bathroom. She denies feeling dizziness or lightheadedness. She denied any chest pain or pressure. She denied shortness of breath. Patient states that she let go of her walker to get through a doorway and when she took her first she fell to the ground. She denied any dizziness this time which was different than her episode earlier this week. She states she had no warning she was about to fall. She denies losing consciousness. EKG reveals sinus bradycardia with right bundle branch block. Most recent echocardiogram obtained 09/29/2020 revealed ejection fraction greater than 55%, mild mitral regurgitation, mild tricuspid regurgitation 10/03/2020: Patient seen and examined at bedside, no acute distress. She did have an episode of dizziness when standing up walking to the bathroom. Telemetry reviewed patient seems to be in sinus mechanism heart rate 50 to 60s, she does occasionally get tachycardic last night, sinus tachycardia. No arrhythmia noted. Patient occasionally does have PVCs. No recent laboratory data from today. Patient's troponin negative 1, COVID-19 negative, renal function within normal limits. Blood pressure 160/90, heart rate 65, afebrile, maintaining oxy gen saturation is 95% on room air. Patient currently maintained on aspirin 81 mg daily, atorvastatin 10 mg daily PHYSICAL EXAM: VITAL SIGNS: Reviewed. GENERAL: Well-developed in no acute distress. HEENT: Head is normocephalic. Pupils are equal, round. Sclerae anicteric. Mucous membranes of the mouth are moist. Neck supple. No JVD or thyromegaly LUNGS: Respirations even and unlabored. Lungs essentially clear to auscultation bilaterally. HEART: Regular rate and rhythm. S1 and S2 heard. ABDOMEN: Soft. Nondistended. Nontender. EXTREMITIES: Normal range of motion. No clubbing or cyanosis. Peripheral pulses intact. No lower extremity edema NEUROLOGIC: Awake and alert. Oriented x 3. ASSESSMENT: Recent hospitalization for syncope Fall from standing without dizziness or lightheadedness Hypertension Hyperlipidemia Breast cancer with metastases to the bone Isolated episode of atrial fibrillation 15 years ago PLAN: No need to repeat echocardiogram as this was performed earlier this week TSH checked earlier this week and WNL Orthostatics: Lying 163/76, sitting 164/84, standing 145/79 Event monitor checked- Patient does not have any significant arrhythmias or bradycardia to account for patients symptoms. 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 Follow-up in the office with Dr. Christianson Nurse practitioner note has been reviewed by physician. Signing provider agrees with the documented findings, assessment, and plan of care. Objective - Vital Signs Vital signs: Vital Signs Temp 97.8 F 10/03/20 07:00 Pulse 65 10/03/20 07:00 Resp 18 10/03/20 07:00 BP 168/98 10/03/20 07:00 Pulse Ox 95 10/03/20 07:00 Intake & Output 10/02/20 10/03/20 10/03/20 18:59 06:59 18:59 Intake Total 240 Balance 240 Intake: Oral 240 Other: Voiding Method Toilet Toilet Toilet # Voids 2 2 - Labs CBC & Chem 7: 10/02/20 05:11 10/01/20 16:40
--- NOTE | 2020-10-03 14:05 | P.CNOR ---
History of Present Illness - [facility] Consult date: 10/03/20 Requesting physician: Cynthia Lea Consult reason: other (right shoulder pain) History of present illness: Patient presented to the ER couple days ago status post fall at home. Patient was trying to turn house and fell. Early this afternoon I did see patient with complaint of right shoulder pain. Patient says this been ongoing issue but this worsened this past weekend when on Saturday/Saturday patient fell and wrenched her shoulder hitting against the door in her home. Patient did see Dr. Jarrell on 07/26/2020 in office for chief complaint of shoulder pain. Patient says she had previously gotten an MRI somewhere which she said showed a rotator cuff tear. Patient says she has had a steroid injection about 2 months ago in the shoulder and it worked for about 6 weeks. Over the past week the shoulder pain has worsened and she says she cannot move it very well. Patient states the pain is mostly over the shoulder region as she points to the head of the humerus. Patient says the pain does radiate down the arm she points to the right biceps. Patient denies any chest pain, fever, shortness of breath, nausea, vomiting, loss of bowel/bladder control, saddle anesthesia. Patient does have a history of previous joint replacement Past Medical History Past Medical History: Atrial Fibrillation, Hyperlipidemia, Hypertension, Osteoarthritis (OA), Thyroid Disorder Additional Past Medical History / Comment(s): HERNIATED DISC, SLIGTH INCONT OF URINE, R sided mets breast cancer 02/2019 History of Any Multi-Drug Resistant Organisms: None Reported Past Surgical History: Hysterectomy, Joint Replacement Additional Past Surgical History / Comment(s): (R) lumpectomy, CATARACTS DOLORES,- LENS IMPLANT, DOLORES KNEE REPLACEMENTS, DENTAL IMPLANT. Past Anesthesia/Blood Transfusion Reactions: No Reported Reaction Past Psychological History: No Psychological Hx Reported Smoking Status: Never smoker Past Alcohol Use History: None Reported Past Drug Use History: None Reported - Past Family History Mother Additional Family Medical History / Comment(s): Mother had respiratory illnesses Father Family Medical History: Cancer Medications and Allergies Home Medications Medication Instructions Recorded Confirmed Type Cyanocobalamin [Vitamin B-12] 1,000 mcg PO HS 10/27/13 10/01/20 History Multivitamins, Thera [Multivitamin 1 tab PO HS 10/27/13 10/01/20 History (formulary)] Aspirin 325 mg PO HS 07/30/14 10/01/20 History [place]-3 Fatty Acids/Fish Oil [Fish 1 cap PO HS 07/30/14 10/01/20 History Oil 1,000 mg Softgel] Valsartan/Hydrochlorothiazide 0.5 tab PO HS 07/30/14 10/01/20 History [Valsartan-Hctz 160-12.5 mg Tab] Letrozole 2.5 mg PO DAILY 12/07/19 10/01/20 History Levothyroxine Sodium 25 mcg PO MOTUWETHFR 09/07/20 10/01/20 History Calcium Carbonate 1,000 mg PO HS 09/28/20 10/01/20 History Cetirizine HCl [Zyrtec] 10 mg PO HS 09/28/20 10/01/20 History Levothyroxine Sodium [Synthroid] 50 mcg PO SUSA 09/28/20 10/01/20 History Simvastatin [Zocor] 10 mg PO HS 09/28/20 10/01/20 History Xgeva 120 mg INJ Q84D 09/28/20 10/01/20 History Palbociclib [Ibrance] See Taper PO DAILY 10/01/20 10/01/20 History traMADol HCL [Ultram] 50 mg PO Q6HR PRN 10/01/20 10/01/20 History Metoprolol Tartrate [Lopressor] 12.5 mg PO BID #60 tab 10/03/20 Rx Allergies Allergy/AdvReac Type Severity Reaction Status Date / Time Cephalosporins Allergy Rash/Hives Verified 10/01/20 15:09 bacitracin AdvReac Unknown Verified 10/01/20 15:09 mold AdvReac Itching Verified 10/01/20 15:09 pollen extracts AdvReac Itching Verified 10/01/20 15:09 Physical Examination right shoulder focused exam: Inspection: Negative for ecchymosis, open fracture, nodules, lesions, erythema. Positive for prominence of the AC joint Palpation: Some mild tenderness to palpation along the end of the acromion. Re st of exam negative nontender to palpation ROM: Patient is able to extend and flex wrist and right hand full range of motion. Patient is not able to abduct right shoulder at all or forward elevate due to weakness/pain. Elbow flexion: 70. Patient gets pain during elbow flexion. Elbow extension full range of motion. Motor: [place] Hand strength right hand: 4/5. Resisted elbow extension/flexion: 2/5. Resisted shoulder abduction, internal and external rotation- 1/5. Neurovascular status: radial Pulses intact 2+ bilaterally. Cap refill under 3 seconds in digits of hands Results - Labs Labs: H & H 10/01/20 10/02/20 Range/Units 14:16 05:11 Hgb 12.7 10.9 L (11.4-16.0) gm/dL Hct 36.8 32.2 L (34.0-46.0) % Coagulation 10/01/20 Range/Units 16:40 INR 0.9 (<1.2) Result Diagrams: 10/02/20 05:11 10/01/20 16:40 Assessment and Plan Assessment: Right shoulder pain Plan: 1. Right shoulder pain - patient was seen and examined today and has been seen in the office for this complaint before. She has had one injection in the shoulder for which did help relieve her shoulder pain for a couple months. Patient says she does need surgery on her shoulder, however, she says she is holding off at this time because of family reasons with her sons being in [place]. I do recommend patient to follow-up in the office with Dr. Jarrell later this week. At this time, no urgent orthopedic surgical intervention is needed. Patient is orthopedically stable for discharge. Please do not hesitate to contact us for any further questions. 2. Appreciate medical management 3. Pain management - stable at this time 4. Appreciate consult Time with Patient: Less than 30
--- NOTE | 2020-10-03 17:05 | PN ---
PROGRESS NOTE DATE OF SERVICE: 10/03/2020 This 85-year-old woman who was admitted with history of fall, also complaining of severe right shoulder pain. The patient had difficulty in ambulating and also having performed activities of daily living at home according to her. The patient has very poor social support. Orthopedic consult has been consulted. No chest pain. No palpitations. No fever. PHYSICAL EXAMINATION: Alert and oriented times three. Pulse is 65, blood pressure 168/98, respiration 18, temperature 97.8, pulse ox 94% on room air. HEENT: Conjunctivae normal. NECK: No JVD. CARDIOVASCULAR: S1, S2 muffled. RESPIRATORY: Breath sounds diminished in the bases. No rhonchi. No crackles. ABDOMEN: Soft, nontender. LEGS are no edema. No swelling. NERVOUS SYSTEM: No focal deficits. Examination of the shoulder, significant tenderness present. LABS: WBC 3.2, hemoglobin 10.9. Other labs are noted. ASSESSMENT: 1. Fall and gait dysfunction. 2. Rule out cardiac arrhythmia and PVCs. 3. Right bundle branch block on EKG. 4. 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 5. Gait dysfunction. 6. History of atrial fibrillation possibly paroxysmal. 7. Right shoulder pain. 8. Poor social support. 9. History of PACs. 10.Hypertension. 11.Hyperlipidemia. 12.History of breast cancer. 13.History of degenerative joint disease. 14.Hypothyroidism. 15.History of herniated disc. 16.History of hysterectomy. 17.History of lumpectomy. 18.Obesity with body mass of 30.5. 19.FULL CODE. RECOMMENDATIONS AND DISCUSSION: This 85-year-old woman presented with multiple complex medical issues, we will monitor the patient closely. Continue the current medications, management and symptomatic treatment. Otherwise, I would recommend orthopedic evaluation. Symptomatic treatment. PT/OT evaluation, possible ECF rehab. Guarded prognosis. Further recommendations to follow. MMODL / IJN: [id number] /
[2020-10-03 17:44] LABS: Appearance,Urine Clear (Clear); Bacteria,Urine Moderate /hpf; Bilirubin,Urine Negative (Negative); Blood,Urine Trace (Negative); Color,Urine Light Yellow; Glucose,Urine (UA) Negative (Negative); Ketones,Urine Negative (Negative); Leukocyte Esterase,Urine Moderate (Negative); Nitrite,Urine Negative (Negative); Protein,Urine Negative (Negative); RBC,Urine 1 /hpf (0-5); Specific Gravity,Urine 1.006 (1.001-1.035); Urobilinogen,Urine <2.0 mg/dL (<2.0); WBC,Urine 13 /hpf (0-5)
[2020-10-03] MEDS: SODIUM CHLORIDE 0.9% 1,000 ML IV SCH (19:04)
[2020-10-03] MEDS: MULTIVITAMINS, THERA 1 EACH TAB PO SCH (20:42)
[2020-10-03] MEDS: CALCIUM CARBONATE 500 MG CHEWABLE PO SCH (20:42)
[2020-10-03] MEDS: CYANOCOBALAMIN 500 MCG TAB PO SCH (20:42)
[2020-10-03] MEDS: ATORVASTATIN 10 MG TAB PO SCH (20:42)
[2020-10-03] MEDS ORDERED: ASPIRIN 81 MG PO SCH (21:00)
[2020-10-04] MEDS: LEVOTHYROXINE 25 MCG TAB PO SCH (06:32)
[2020-10-04 08:18] VITALS: TEMP 98.6
[2020-10-04] MEDS: METOPROLOL TARTRATE 12.5 MG TAB PO SCH (08:35)
[2020-10-04] MEDS: LETROZOLE 2.5 MG TAB PO SCH (08:35)
[2020-10-04] MEDS ORDERED: PALBOCICLIB 125 MG PO SCH (09:00)
[2020-10-04] MEDS: traMADol 50 MG TAB PO PRN (10:27)
[2020-10-04 15:01] VITALS: BP 132/70; PULSE 67; RESP 16
--- NOTE | 2020-10-04 15:43 | P.DS ---
Providers Date of admission: 10/01/20 16:03 Expected date of discharge: 10/04/20 Attending physician: Cynthia Lea Consults: 10/01/20 15:39 Consult Physician Routine Consulting Provider: Ash Shields Consult Reason/Comments: cardiac arrhythmia? 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 Patient will follow-up with Dr. Montemayor in the outpatient setting upon discharge. Patient will be discontinuing all chemo medications and oncology treatments during rehab, patient was taking Ibrance and Xgeva and is agreeable to discontinue these medications until discharge from rehab. Total time taken is greater than 35 minutes. Hospital course This is an 85-year-old female who was recently admitted with history of falls also complaining of severe right shoulder pain and difficulty in ambulating and performing ADLs independently and was being closely monitored. Orthopedics evaluated the patient recommending outpatient follow-up and patient will also need cardiology and follow-up with oncology as well. Patient was taking Ibrance and Xgeva and is agreeable to discontinue these medications while at rehab to build up strength and mobility as PT/OT therapy recommended subacute rehab. Currently no reports of chest pain, shortness of breath, or palpitations. Patient is afebrile. No reports of nausea or vomiting and patient is tolerating diet. Patient will be going to [facility] today. On exam vital signs are stable. Cardio S1, S2 are muffled. Respiratory system shows diminished breath sounds at the bases with no wheezing or rhonchi noted. Abdomen is soft and nontender. Nervous system shows diffuse weakness. Please refer to medication reconciliation sheet for a list of medications. Patient Condition at Discharge: Fair Plan - Discharge Summary Discharge Rx Participant: No New Discharge Prescriptions: New Metoprolol Tartrate [Lopressor] 12.5 mg PO BID #60 tab Continue Multivitamins, Thera [Multivitamin (formulary)] 1 tab PO HS Cyanocobalamin [Vitamin B-12] 1,000 mcg PO HS Aspirin 325 mg PO HS [place]-3 Fatty Acids/Fish Oil [Fish Oil 1,000 mg Softgel] 1 cap PO HS Letrozole 2.5 mg PO DAILY Simvastatin [Zocor] 10 mg PO HS Calcium Carbonate 1,000 mg PO HS Levothyroxine Sodium 25 mcg PO MOTUWETHFR Levothyroxine Sodium [Synthroid] 50 mcg PO SUSA Cetirizine HCl [Zyrtec] 10 mg PO HS traMADol HCL [Ultram] 50 mg PO Q6HR PRN #20 tab PRN Reason: Pain Discontinued Valsartan/Hydrochlorothiazide [Valsartan-Hctz 160-12.5 mg Tab] 0.5 tab PO HS Xgeva 120 mg INJ Q84D Palbociclib [Ibrance] See Taper PO DAILY Discharge Medication List Cyanocobalamin [Vitamin B-12] 1,000 mcg PO HS 10/27/13 [History] Multivitamins, Thera [Multivitamin (formulary)] 1 tab PO HS 10/27/13 [History] Aspirin 325 mg PO HS 07/30/14 [History] [place]-3 Fatty Acids/Fish Oil [Fish Oil 1,000 mg Softgel] 1 cap PO HS 07/30/14 [History] Letrozole 2.5 mg PO DAILY 12/07/19 [History] Levothyroxine Sodium 25 mcg PO MOTUWETHFR 09/07/20 [History] Calcium Carbonate 1,000 mg PO HS 09/28/20 [History] Cetirizine HCl [Zyrtec] 10 mg PO HS 09/28/20 [History] Levothyroxine Sodium [Synthroid] 50 mcg PO SUSA 09/28/20 [History] Simvastatin [Zocor] 10 mg PO HS 09/28/20 [History] Metoprolol Tartrate [Lopressor] 12.5 mg PO BID #60 tab 10/03/20 [Rx] traMADol HCL [Ultram] 50 mg PO Q6HR PRN #20 tab 10/04/20 [Rx] Follow up Appointment(s)/Referral(s): Yeny Christianson MD [STAFF PHYSICIAN] - 10/17/20 9:00 am Donta Dukes III, MD [Primary Care Provider] - 1-2 days (Appointment scheduled for 10/04/20 at 12 noon.) Pranay Jarrell DO [Doctor of Osteopathic Medicine] - 3 Days (Appointment scheduled for 10/11/20 at 1:30 pm.) [facility] Visiting Nurse, [NON-STAFF] - 1-2 Days (Agency will contact you.) Patient Instructions/Handouts: Vertigo (DC), Fall Prevention for Older Adults (DC) Activity/Diet/Wound Care/Special Instructions: diet cardiac act limited till f/u PLEASE GIVE PT HER HOME MEDICATION THAT IS IN MED ROOM Discharge Disposition: TRANSFER TO SNF/ECF
== END 2020-10-04 16:28 ==
LOC: EC 13:18 → 6NMEDSUR 16:03 → 6PED 10-03 20:44
PROVIDERS: ADMIT Hospitalist; ATTEND Hospitalist
DX: R55 Syncope and collapse (principal); C79.51 Secondary malignant neoplasm of bone; R26.2 Difficulty in walking, not elsewhere classified; I45.10 Unspecified right bundle-branch block; D70.1 Agranulocytosis secondary to cancer chemotherapy; E03.9 Hypothyroidism, unspecified; E66.9 Obesity, unspecified; E78.5 Hyperlipidemia, unspecified; I10 Essential (primary) hypertension; I48.91 Unspecified atrial fibrillation; T45.1X5A Adverse effect of antineoplastic and immunosuppressive drugs, initial encounter; Z20.822 Contact with and (suspected) exposure to COVID-19; Z63.8 Other specified problems related to primary support group; Z68.30 Body mass index [BMI] 30.0-30.9, adult; Z79.811 Long term (current) use of aromatase inhibitors; Z91.81 History of falling; M25.511 Pain in right shoulder; Z79.82 Long term (current) use of aspirin; Z79.890 Hormone replacement therapy; Z79.899 Other long term (current) drug therapy; Z85.3 Personal history of malignant neoplasm of breast; Z90.710 Acquired absence of both cervix and uterus; Z96.653 Presence of artificial knee joint, bilateral
CPT/HCPCS: 99285; 93005 ×2; 36415; 97162; 97166; 80053; 80048; 84484; 85025 ×2; 85610; 85730; 81001; 87635; 72170; 73030; 71045; 72125; 70450; G0378 ×4

== ENCOUNTER → 2020-12-09 | Outpatient (CLI) | payer MEDICARE ==
[2020-12-09 12:13] VITALS: BP 143/85; PULSE 63; RESP 16; TEMP 98
== END ==
LOC: PROCWHC3 11:48
PROVIDERS: ATTEND Internal Medicine Hematology & Oncology
DX: C79.51 Secondary malignant neoplasm of bone (principal); Z88.1 Allergy status to other antibiotic agents; Z91.09 Other allergy status, other than to drugs and biological substances
CPT/HCPCS: 96372

== ENCOUNTER → 2020-12-26 | Outpatient (CLI) | payer MEDICARE ==
[~2020-12-26] MED LIST changes: -DENOSUMAB 120 MG/1.7 ML VIAL SQ NR; +REGADENOSON 0.4 MG/5 ML SYRINGE IV PRN
--- NOTE | 2020-12-27 13:49 | NM ---
EXAMINATION TYPE: NM stress lexiscan cardiolite DATE OF EXAM: 12/26/2020 COMPARISON: NONE HISTORY: Abnormal EKG TECHNIQUE: After the intravenous administration of 9.9 mCi Tc 99m Sestamibi - Cardiolite resting SPE CT images acquired 55 minutes post injection. At peak stress 26.1 mCi Tc 99m Sestamibi - Stress images obtained 45 minutes post injection The patient was stressed with 0.4mg Lexiscan. FINDINGS: There is diminished radiotracer accumulation along the inferior lateral wall extending from the cardi ac base to the apex. Findings appear fixed on both resting and stress images suggesting prior infarct . Polar maps correlate with the SPECT findings. Ejection fraction of 60% is normal. IMPRESSION: 1. 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 Correlate wit h EKG findings 2. No stress-induced ischemic changes
--- NOTE | 2020-12-28 08:34 | EST ---
EXERCISE STRESS AGE: 85 SEX: F HT: 5'5" WT: 178 lbs. PROTOCOL: Lexiscan STAGE: NA DURATION OF EXERCISE: 5 minutes HEART RATE REST: 59 BLOOD PRESSURE REST: 95/51 MAXIMUM HEART RATE ACHIEVED: 80 MAXIMUM BLOOD PRESSURE: 139/72 85% MPHR: 116 100% MPHR: 137 METS: NA INDICATIONS: Abnormal EKG. CLINICAL INFORMATION: Baseline rhythm is sinus mechanism, rate of 59, right bundle branch block. Baseline blood pressure 95/51 mmHg. Patient received injection of Lexiscan. Electrocardiographic monitoring revealed occasional single PVCs. There was no evidence of diagnostic ischemic ST deviation. Cardiolite was injected per protocol. CONCLUSION: 1. Nondiagnostic electrocardiograph stress testing. 2. Occasional PVCs. 3. Nuclear images will be reported separately. MMODL / IJN: [id number] /
== END | disposition home or self-care (01) ==
LOC: RADNMMAIN 08:31
PROVIDERS: ATTEND Family Medicine
DX: R94.31 Abnormal electrocardiogram [ECG] [EKG] (principal)
CPT/HCPCS: 93017; 78452; A9500; J2785

== ENCOUNTER → 2021-01-06 | Outpatient (CLI) | payer MEDICARE ==
[2021-01-06 11:46] LABS: African American GFR (CKD) >90 (>60 ml/min/1.73 sqM); Blood Urea Nitrogen 15 mg/dL (7-17); Non-African American GFR(CKD) 81 (>60 ml/min/1.73 sqM)
--- NOTE | 2021-01-06 13:22 | CT ---
EXAMINATION TYPE: CT ChestAbdPelvis w con DATE OF EXAM: 01/06/2021 COMPARISON: Prior PET/CT July 15, 2020 and older studies HISTORY: follow up right sided breast cancer CT DLP: 1085 mGycm. Automated Exposure Control for Dose Reduction was Utilized. CONTRAST: CT scan of the thorax, abdomen and pelvis is performed with oral and with IV Contrast, patient inject ed with 100 mL of Isovue 300. FINDINGS: LUNGS: Mild bibasilar linear scarring and/or atelectasis. No suspicious scattered pulmonary nodules o r masses. There is no pleural effusion or pneumothorax seen. The tracheobronchial tree is patent. MEDIASTINUM: There are no greater than 1 cm hilar or mediastinal lymph nodes. No pericardial effusi on is seen. Slightly enlarged thyroid is redemonstrated. Bovine type aortic arch which is normal vari ant again seen. Ectatic ascending aorta up to 3.8 cm noted. Mild cardiomegaly with calcifications the level of the mitral and aortic valve. Focal mild/moderate calcification in the proximal LAD. OTHER: Surgical clips right axillary region redemonstrated. LIVER/GB: Cholecystectomy clips redemonstrated. Extrahepatic bile ducts stable measuring mildly dilat ed. PANCREAS: No significant abnormality is seen. SPLEEN: No significant abnormality is seen. ADRENALS: Slight asymmetric thickening to left adrenal gland is stable. KIDNEYS: Simple appearing 2.6 cm thin-walled cyst posteriorly upper pole left kidney series 6 image 2 2 redemonstrated. BOWEL: Oral contrast reaches level of mid transverse colon. No suspicious small or large bowel dilata tion. GENITAL ORGANS: Uterus surgically absent or markedly atrophic. Scattered pelvic phleboliths. LYMPH NODES: No greater than 1cm abdominal or pelvic lymph nodes are appreciated. OSSEOUS STRUCTURES: Underlying levoconvex scoliosis in the lumbar spine redemonstrated. Persistent mu ltifocal spurring and disc space narrowing with findings greatest at L3-L4, L5-S1, and T12-L1 level w here there is also spondylolisthesis and endplate sclerosis. Multiple sclerotic osseous metastatic di sease is redemonstrated. OTHER: Mild to moderate calcified plaque of the aorta extends into branch vessels. 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 No new suspicious mass or adenopath y to suggest active neoplastic recurrence. No significant change from most recent PET/CT.
== END | disposition home or self-care (01) ==
LOC: RADCTMAIN 10:46
PROVIDERS: ATTEND Internal Medicine Hematology & Oncology
DX: C79.51 Secondary malignant neoplasm of bone (principal); C50.911 Malignant neoplasm of unspecified site of right female breast
CPT/HCPCS: 82565; 84520; 71260; 74177; 36415; Q9967

== ENCOUNTER 2021-02-01 05:40 | Day surgery (SDC) | payer MEDICARE ==
[2021-01-30 16:07] VITALS: BMI 29.1
--- NOTE | 2021-01-31 20:18 | HP ---
HISTORY AND PHYSICAL DATE OF SURGERY: 02/01/2021 Anna Marie Watson is an 85-year-old patient seen with progressive right shoulder pain. We discussed options for treatment. She elected to proceed with arthroscopy. Consent was obtained. Her preoperative medical clearance was provided by Dr. Dukes. PAST MEDICAL HISTORY: Hypertension, hypothyroidism. PAST SURGICAL HISTORY: Cholecystectomy, knee surgery, hysterectomy. DAILY MEDICATIONS: Levothyroxine, simvastatin, metoprolol, . ALLERGIES: BACITRACIN, SULFA. SOCIAL HISTORY: She denies tobacco use. PHYSICAL EVALUATION OF THE RIGHT SHOULDER: Flexion is 10 degrees, abduction zero degrees. External rotation is 30 degrees with pain and weakness. Tenderness along the anterolateral acromion and rotator cuff insertion site. Impingement is positive at 90 degrees. Drop-arm sign is positive. Distal neurovascular exam is intact. IMAGING: Right shoulder radiographs revealed a type 2 acromion, acromioclavicular joint osteoarthritis and cystic changes of the tuberosity. Right shoulder MRI revealed rotator cuff tear and acromioclavicular joint osteoarthritis. IMPRESSION: 1. Right shoulder impingement with rotator cuff tear. 2. Right shoulder acromioclavicular joint osteoarthritis. 3. Hypertension. 4. Hyperlipidemia. 5. Hypothyroidism. PLAN: Right shoulder arthroscopy with subacromial decompression, arthroscopic rotator cuff repair and debridement. MMODL / IJN: [id number] /
[~2021-02-01 05:40] MED LIST changes: +LACTATED RINGERS 1,000 ML IV SCH; +LIDOCAINE 1% (10MG/ML) FOR IV START INTRADERMA PRN; +Pre Op ABX Message 1 EACH MISC MISCELLANE ONE; -REGADENOSON 0.4 MG/5 ML SYRINGE IV PRN
[2021-02-01] MEDS ORDERED: ONDANSETRON 4 MG/2 ML VIAL ONE (06:48)
[2021-02-01] MEDS ORDERED: fentaNYL (PF) 50 MCG/ML 2 ML AMP IVP PRN (07:00)
[2021-02-01 07:08] VITALS: RESP 16
[2021-02-01] MEDS ORDERED: DEXAMETHASONE SOD PHOSPHATE 4 MG/ML 1 ML VIAL IVP ONE (07:15)
[2021-02-01] MEDS ORDERED: MIDAZOLAM 2 MG/2 ML VIAL IVP ONE (07:19)
[2021-02-01] MEDS ORDERED: fentaNYL (PF) 50 MCG/ML 2 ML AMP IVP ONE (07:19)
[2021-02-01] MEDS ORDERED: fentaNYL (PF) 50 MCG/ML 2 ML AMP ONE ×2 (07:21→07:30)
[2021-02-01] MEDS ORDERED: MIDAZOLAM 2 MG/2 ML VIAL ONE (07:21)
[2021-02-01] MEDS ORDERED: PROPOFOL 10 MG/ML 20 ML VIAL IV ONE (07:30)
[2021-02-01] MEDS ORDERED: SUCCINYLCHOLINE CHLORIDE 100 MG/5 ML SYR IV ONE (07:30)
[2021-02-01] MEDS ORDERED: ROPIVACAINE 5 MG/ML 30 ML VIAL ONE (07:30)
[2021-02-01] MEDS ORDERED: ePHEDrine 50 MG/ML 1 ML AMP ONE (07:30)
[2021-02-01] MEDS ORDERED: LIDOCAINE 1% INJ 10MG/ML (20 ML MDV) ONE (07:30)
[2021-02-01] MEDS ORDERED: SODIUM CHLORIDE 0.9% 100 ML with ceFAZolin 2,000 MG IV ONE ×2 (07:36)
[2021-02-01] MEDS ORDERED: LACTATED RINGERS 1,000 ML IV ONE (08:32)
--- NOTE | 2021-02-01 09:17 | P.ANPRN ---
Procedure Note - Anesthesia - Nerve Block Performed Right Interscalene Single Time Out Performed: Yes ([id number]) Date of Procedure: 02/01/21 Procedure Start Time: : Procedure Stop Time: :24 Location of Patient: PreOp Indication: Acute Post-Operative Pain, Requested by Surgeon Specifically requested for management of pain by DrTorri: Pranay Jarrell Sedation Type: Sedate with meaningful contact maintained Preparation: Sterile Prep Position: Supine Catheter: None Needle Types: Pajunk Needle Gauge: 21 Ultrasound used to visualize needle placement: Yes Ultrasound used to observe medication spread: Yes Injectate: 0.5% Ropivacaine (see comment for volume) (30cc) Blood Aspirated: No Pain Paresthesia on Injection Noted: No Resistance on Injection: Normal Image Stored and Saved: Yes Events: Uneventful and Well Tolerated
[2021-02-01 09:21] VITALS: TEMP 96.9
--- NOTE | 2021-02-01 09:21 | P.OP ---
Date of Procedure: 02/01/21 Preoperative Diagnosis: Right shoulder impingement Postoperative Diagnosis: 1. Right shoulder rotator cuff tear 2. Right shoulder impingement 3. Right shoulder acromioclavicular joint osteoarthritis 4. Right shoulder partial long head biceps tendon tear 5. 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 Right shoulder arthroscopic rotator cuff repair 2. Right shoulder arthroscopic subacromial decompression 3. Right shoulder arthroscopic Stone procedure 4. Right shoulder arthroscopic biceps tenotomy 5. Right shoulder arthroscopic chondroplasty Anesthesia: GETA, regional (Interscalene block) Surgeon: Pranay Jarrell Management Nurse Rn #1: Quirino Ramirez Estimated Blood Loss (ml): 7 Pathology: none sent Condition: stable Disposition: PACU Indications for Procedure: 85-year-old patient seen with progressive right shoulder pain. After having treatment options discussed, she elected to proceed with arthroscopy. Operative Findings: see description of procedure Description of Procedure: Patient underwent an interscalene block by department of anesthesia. The patient was then taken to the operative suite. The patient underwent a general anesthetic by the department of anesthesia. The patient was placed into a lateral position and secured. There was appropriate padding of the bony prominence. Right shoulder was then prepped and draped in normal sterile orthopedic fashion. We placed the extremity in 10 pounds of longitudinal traction. A posterior incision was now made for a posterior working portal site. The trocar and cannula were inserted into the glenohumeral joint. Arthroscopy was initiated. Spinal needle was now inserted anteriorly, to ascertain the anterior working portal site. An incision was now made in that area, a trocar was inserted followed by a probe. There was some hyperemia partial tearing long head biceps tendon. There were grade 2 chondromalacia changes of the humeral head with osteochondral flap tear present. The labrum appeared stable. I performed an arthroscopic biceps tenotomy. I performed a chondroplasty of the humeral head. The residual osteochondral surface was found to be stable. The labrum was again probed and found to be stable. Instruments now removed from glenohumeral joint. Utilizing the posterior working portal site, the trocar and cannula were inserted into the subacromial space. Arthroscopy initiated. I made an incision 2 fingerbreadths lateral to the acromion. I introduced my trocar followed by my ArthroCare ablator. I now began ablating thick subacromial bursal tissue, which exposed the undersurface of the anterior acromion. There was diminished subacromial space. There was a very prominent anterior acromion. A motorized bur was introduced and a subacromial decompression was performed. I also excised some osteophytes off the inferior aspect of the distal clavicle. The AC joint was visualized and noted to be fairly arthritic. The motorized bur was introduced in the anterior portal site and a Stone procedure was performed without difficulty, decompressing the AC joint nicely. I turned my attention to the rotator cuff. There was a 3.5 cm rotator cuff tear. I debrided the margins getting down to stable tendon tissue. I now performed a release medially. I now used 3 converging sutures centrally to close down the large tear. I now could pull the tendon over the footprint. I introduced my motorized bur and abraded the footprint area, getting some petechial bleeding. I now made an accessory portal site off the lateral aspect of the acromion. I punched 2 holes medial for medial row fixation with the assistance of Augustine KOO carefully tapping the punch with a mallet as I held the punch and the camera. I now introduced both anchors into the pre-punched holes and Augustine KOO tapped them with the mallet as I held anchors and the camera. Augustine KOO now screwed the anchors in place a while I held the anchor guide and camera. All 8 limbs of suture were now passed through good bites of rotator cuff tendon. I now punched 2 holes for lateral row fixation again I held the punch and camera while Augustine KOO used a mallet to tap in the punch. We now passed sutures through both anchors and individually I introduced the anchors into the pre- punch holes I held the anchor guide in position with one hand holding the camera with the other hand while Augustine KOO tensioned the sutures and screwed in the anchors one at a time. All residual suture limbs were now clipped. We had good compression of the tendon along the entire footprint. Instruments now removed from the portal sites. All portal sites were approximated with nylon suture. Sterile dressings were applied followed by a shoulder immobilizer. Quirino OKO assisted in this complex case. The patient was awakened, transferred to a bed, and taken to recovery in stable condition.
[2021-02-01 10:58] VITALS: BP 147/87; PULSE 81
== END 2021-02-01 11:41 | disposition home or self-care (01) ==
LOC: OR 05:40
PROVIDERS: ATTEND Orthopaedic Surgery
DX: M75.101 Unspecified rotator cuff tear or rupture of right shoulder, not specified as traumatic (principal); M25.811 Other specified joint disorders, right shoulder; M19.011 Primary osteoarthritis, right shoulder; M94.211 Chondromalacia, right shoulder; S46.111A Strain of muscle, fascia and tendon of long head of biceps, right arm, initial encounter; K21.9 Gastro-esophageal reflux disease without esophagitis; X58.XXXA Exposure to other specified factors, initial encounter; M41.9 Scoliosis, unspecified; Z85.3 Personal history of malignant neoplasm of breast; I48.0 Paroxysmal atrial fibrillation; E78.00 Pure hypercholesterolemia, unspecified; I10 Essential (primary) hypertension; E03.9 Hypothyroidism, unspecified; E78.2 Mixed hyperlipidemia; Z86.010 Personal history of colon polyps; Z90.710 Acquired absence of both cervix and uterus; Z96.653 Presence of artificial knee joint, bilateral; Z90.49 Acquired absence of other specified parts of digestive tract; Z98.890 Other specified postprocedural states; Z80.1 Family history of malignant neoplasm of trachea, bronchus and lung; Z82.49 Family history of ischemic heart disease and other diseases of the circulatory system; Z87.891 Personal history of nicotine dependence; Z79.82 Long term (current) use of aspirin; Z79.890 Hormone replacement therapy; Z79.899 Other long term (current) drug therapy; Z79.811 Long term (current) use of aromatase inhibitors; Z88.2 Allergy status to sulfonamides; Z88.8 Allergy status to other drugs, medicaments and biological substances; Z91.048 Other nonmedicinal substance allergy status; Z92.21 Personal history of antineoplastic chemotherapy
CPT/HCPCS: 64415; 76942; 29826; 29827; 29824; C1713 ×3; C1894; J2250; J1100; J2405; J0690; J2001; J3010; J2795; J0330; J2704

== ENCOUNTER → 2021-03-17 | Outpatient (CLI) | payer MEDICARE ==
[2021-03-17 09:06] VITALS: RESP 15; TEMP 98.3
[2021-03-17 09:08] VITALS: BP 144/64; PULSE 80
[2021-03-17] MEDS: DENOSUMAB 120 MG/1.7 ML VIAL SQ NR (09:09)
== END ==
LOC: PROCWHC3 08:55
PROVIDERS: ATTEND Internal Medicine Hematology & Oncology
DX: C79.51 Secondary malignant neoplasm of bone (principal)
CPT/HCPCS: 96372; J0897

== ENCOUNTER → 2021-06-14 | Outpatient (CLI) | payer MEDICARE ==
--- NOTE | 2021-06-14 23:32 | MR ---
EXAMINATION TYPE: MR brain wo/w con DATE OF EXAM: 06/14/2021 COMPARISON: None HISTORY: Breast CA CONTRAST: Standard multiplanar, multisequence MRI departmental protocol images were obtained without contrast a nd with 8 mL intravenous Gadavist gadolinium contrast. There is some cerebral cortical atrophy. There is no mass effect or midline shift. There is no eviden ce of intracranial hemorrhage. Diffusion images show no evidence of an acute infarct. Brainstem is in tact. There is no evidence of posterior fossa mass. Internal auditory canals appear normal. Corpus ca llosum appears normal. There is no evidence of a sellar mass. There is no evidence of orbital mass. O n the T2 and FLAIR images there are a few scattered areas of small white matter increased signal at t he sauceda-white matter junction both cerebral hemispheres. These measure mostly less than 3 mm and the total number is approximately 20. Contrast images show no pathologic enhancement. There is normal enhancement of the venous sinuses. IMPRESSION: Small white matter foci at the periphery of the sauceda-white matter junction consistent with microvascu lar ischemia. No evidence of metastatic disease. Mild atrophy.
== END | disposition home or self-care (01) ==
LOC: RADMRIMAIN 12:39
PROVIDERS: ATTEND Internal Medicine Hematology & Oncology
DX: C50.311 Malignant neoplasm of lower-inner quadrant of right female breast (principal); G31.89 Other specified degenerative diseases of nervous system; I67.82 Cerebral ischemia
CPT/HCPCS: 70553; A9585

== ENCOUNTER → 2021-06-16 | Outpatient (CLI) | payer MEDICARE ==
[~2021-06-16] MED LIST changes: +DENOSUMAB 120 MG/1.7 ML VIAL SQ NR; -LACTATED RINGERS 1,000 ML IV SCH; -LIDOCAINE 1% (10MG/ML) FOR IV START INTRADERMA PRN; -Pre Op ABX Message 1 EACH MISC MISCELLANE ONE
[2021-06-16 10:05] VITALS: BP 145/81; PULSE 63; RESP 16; TEMP 98.3
== END ==
LOC: PROCWHC3 09:41 → EDSTATUS 10:00
PROVIDERS: ATTEND Internal Medicine Hematology & Oncology
DX: C79.51 Secondary malignant neoplasm of bone (principal); Z88.2 Allergy status to sulfonamides; Z91.048 Other nonmedicinal substance allergy status; Z88.1 Allergy status to other antibiotic agents
CPT/HCPCS: 96372; J0897

== ENCOUNTER → 2021-07-18 | Outpatient (CLI) | payer MEDICARE ==
--- NOTE | 2021-07-18 12:27 | CT ---
EXAMINATION TYPE: CT ChestAbdPelvis w con DATE OF EXAM: 07/18/2021 COMPARISON: CT dated 01/06/2021 HISTORY: breast CA CT DLP: 1541 mGycm Automated exposure control for dose reduction was used. CONTRAST: CT scan of the chest, abdomen and pelvis is performed with Oral Contrast and with IV Contrast, patien t injected with 100 mL of Isovue 300. FINDINGS: LUNGS: Stable right anterior basal minimal scarring. The lungs otherwise are grossly clear, there is no concerning parenchymal mass or nodule identified. There is no pleural effusion or pneumothorax s een. The tracheobronchial tree is patent. MEDIASTINUM: There are no greater than 1 cm hilar or mediastinal lymph nodes. No gross cardiomegaly. Scattered arterial and coronary atherosclerotic calcification. Dilated right pulmonary artery measuri ng up to 3 cm. No pericardial effusion is seen. OTHER: Slightly prominent thyroid gland. Stable scattered sclerotic foci in the visualized bones in the chest without interval progression likely representing treated metastasis. LIVER/GB: Slightly obscured by artifacts in the upper abdomen. No definite hepatic focal lesion. Prev ious cholecystectomy. PANCREAS: Atrophic. SPLEEN: No significant abnormality is seen. ADRENALS: No significant abnormality is seen. KIDNEYS: Stable left upper pole renal cyst, otherwise unremarkable kidneys. BOWEL: Extensive colonic diverticulosis with segments of nonspecific colonic wall thickening, please correlate with colonoscopy results. Unremarkable stomach, duodenum and small bowel. REPRODUCTIVE ORGANS: Previous hysterectomy. No gross adnexal mass. LYMPH NODES: No greater than 1 cm abdominal or pelvic lymph nodes are appreciated. OSSEOUS STRUCTURES: Stable scattered sclerotic foci in the visualized lumbar spine and pelvic bones l ikely representing treated metastasis. Persistent severe levoscoliosis and degenerative changes of th e lumbar spine. OTHER: Scattered arterial atherosclerotic calcifications. No sizable ascites. IMPRESSION: Grossly stable scattered osseous sclerotic lesions likely representing treated metastasis without int erval progression. Recommend correlation with bone scan results. Otherwise no evidence of metastatic disease seen in the chest, abdomen or the pelvis. Incidental findings as described above.
--- NOTE | 2021-07-19 17:39 | NM ---
EXAMINATION TYPE: NM bone scan whole body DATE OF EXAM: 07/18/2021 COMPARISON: CT chest abdomen pelvis 07/18/2021 HISTORY: Breast cancer Delayed whole-body scanning was performed following the injection of 22.5 mCi Tc 99m MDP. Images wer e acquired 6 hours post injection. FINDINGS: There are couple of foci of increased radiotracer accumulation within the midline calvarium. Correlat e for metastatic disease. There is increased radiotracer accumulation within the posterior cervical spine on the left in the up per portion and on the right in the lower portion. Finding is nonspecific. Degenerative changes may b e present. Metastasis are not entirely excluded. There is a focus of increased radiotracer accumulation within the mid T12 level on the posterior view . A metastatic lesion to the spinous process could be considered. There is diffuse increased uptake through the region of the right hip and to a lesser degree the left hip acetabulum. Findings may be related to degenerative change. There is focus of radiotracer in the first metacarpal carpal regions most likely degenerative in natu re Photopenic defects at the bilateral knee prostheses are evident. Foci radiotracer within the ankles and right midfoot more likely related to degenerative change. COMPARISON: Multiple sclerotic lesions appear underrepresented on the bone scan findings. No definite correspondence between the region T12 and the bone scan is identified. IMPRESSION: 1. There are couple of areas suspicious for metastatic disease including 2 within the midline calvari um and within the mid posterior T12 region. 2. Additional areas appears suggestive for degenerative change. Metastatic disease however is not exc luded at these additional areas.
== END | disposition home or self-care (01) ==
LOC: RADCTMAIN 07:57
PROVIDERS: ATTEND Internal Medicine Hematology & Oncology
DX: C50.311 Malignant neoplasm of lower-inner quadrant of right female breast (principal); Z03.89 Encounter for observation for other suspected diseases and conditions ruled out
CPT/HCPCS: 82565; 84520; 71260; 74177; 36415; 78306; A9503; Q9967

== ENCOUNTER → 2021-08-01 | Outpatient (CLI) | payer MEDICARE ==
--- NOTE | 2021-08-01 19:32 | US ---
EXAMINATION TYPE: US carotid duplex BILAT DATE OF EXAM: 08/01/2021 COMPARISON: US 2013 CLINICAL HISTORY: I65.23 OCCLUSION AND STENOSIS OF BILATERAL CAROTID. Occlusion/stenosis of carotid. Hx hypertension, hyperlipidemia. EXAM MEASUREMENTS: RIGHT: Peak Systolic Velocity (PSV) cm/sec ----- Right CCA: 103.0 ----- Right ICA: 89.7 ----- Right ECA: 94.1 ICA/CCA ratio: 0.9 RIGHT: End Diastole cm/sec ----- Right CCA: 21.5 ----- Right ICA: 31.4 ----- Right ECA: 11.7 LEFT: Peak Systolic Velocity (PSV) cm/sec ----- Left CCA: 89.7 ----- Left ICA: 120.5 ----- Left ECA: 103.0 ICA/CCA ratio: 1.3 LEFT: End Diastole cm/sec ----- Left CCA: 21.5 ----- Left ICA: 28.4 ----- Left ECA: 0.0 VERTEBRALS (direction of flow): Right Vertebral: Antegrade Left Vertebral: Antegrade Rhythm: Arrhythmia No elevated velocities at this time. Plaque seen within bilateral bulbs and prox left ICA. *Incidental finding: thyroid appears heterogeneous bilaterally. Prominent right lobe, volume measures 19.7 ml Increased atherosclerotic changes at left carotid bulb have progressed from prior ultrasound but [facility] measurements and ratios remain within normal limits. IMPRESSION: No hemodynamically significant stenosis in either internal carotid artery. Criteria for Assigning % of Stenosis / Diameter reduction (Estimation based on the indirect measurements of the internal carotid artery velocities (ICA PSV). 1. Normal (no stenosis)=ICA PSV < 125 cm/s: ratio < 2.0: ICA EDV<40 cm/s. 2. Less than 50% stenosis=ICA PSV < 125 cm/s: ratio < 2.0: ICA EDV<40 cm/s. 3. 50 to 69% stenosis=ICA PSV of 125 to 230 cm/s: ration 2.0 ? 4.0: ICA EDV 40-100 cm/s. 4. Greater than 70% stenosis to near occlusion= ICA PSV > 230 cm/s: ratio > 4.0: ICA EDV > 100 cm/s. 5. Near occlusion= ICA PSV velocities may be low or undetectable: variable ratio and ICA EDV. 6. Total occlusion=unable to detect flow.
== END | disposition home or self-care (01) ==
LOC: RADUSWWP 14:51
PROVIDERS: ATTEND Psychiatry & Neurology Neurology
DX: I65.23 Occlusion and stenosis of bilateral carotid arteries (principal)
CPT/HCPCS: 93880

== ENCOUNTER → 2021-09-19 | Outpatient (CLI) | payer MEDICARE ==
[2021-09-19 10:08] VITALS: BP 151/72; PULSE 76; RESP 16; TEMP 97.9
== END ==
LOC: PROCWHC3 09:42
PROVIDERS: ATTEND Internal Medicine Hematology & Oncology
DX: C79.51 Secondary malignant neoplasm of bone (principal); C50.311 Malignant neoplasm of lower-inner quadrant of right female breast; Z88.1 Allergy status to other antibiotic agents; Z88.2 Allergy status to sulfonamides; Z91.09 Other allergy status, other than to drugs and biological substances
CPT/HCPCS: 96372; J0897

== ENCOUNTER → 2021-12-19 | Outpatient (CLI) | payer MEDICARE ==
[2021-12-19 13:05] VITALS: BP 162/84; PULSE 68; RESP 16; TEMP 98.1
== END ==
LOC: PROCWHC3 12:52
PROVIDERS: ATTEND Internal Medicine Hematology & Oncology
DX: C50.311 Malignant neoplasm of lower-inner quadrant of right female breast (principal); I10 Essential (primary) hypertension; M81.8 Other osteoporosis without current pathological fracture; M15.9 Polyosteoarthritis, unspecified; C79.51 Secondary malignant neoplasm of bone; Z88.2 Allergy status to sulfonamides; Z91.09 Other allergy status, other than to drugs and biological substances; Z88.1 Allergy status to other antibiotic agents
CPT/HCPCS: 96372; J0897

== ENCOUNTER → 2022-01-31 | Outpatient (CLI) | payer MEDICARE ==
[2022-01-31 10:32] LABS: African American GFR (CKD) >90 (>60 ml/min/1.73 sqM); Blood Urea Nitrogen 17 mg/dL (7-17); Non-African American GFR(CKD) 79 (>60 ml/min/1.73 sqM)
--- NOTE | 2022-01-31 15:09 | NM ---
EXAMINATION TYPE: NM bone scan whole body DATE OF EXAM: 01/31/2022 COMPARISON: NONE HISTORY: Breast cancer Delayed whole-body scanning was performed following the injection of 20.7 mCi Tc 99m MDP. Images wer e acquired 3.5 hours post injection. FINDINGS: There is focal radiotracer accumulation within the midportion of T11 or T12 vertebral body posteriorl y. This is nonspecific but could be related to metastatic disease. This best visualized on the lease analyst ior view. There is some focal uptake within the posterior central occiput posterior view. Metastatic disease sh ould BE considered There is increased radiotracer accumulation in the T10-T12 pedicle regions. This could be related to degenerative change. Metastasis is not entirely excluded. Similar appearance of L1 bilaterally may be present. There is increased radiotracer within the bilateral shoulders right more so than left is likely degen erative in nature. Bilateral knee prostheses are present There is diffuse uptake within the bilateral ankles and metatarsal regions more likely related to deg enerative changes. Uptake within the bilateral carpal metacarpal junction of the thumbs likely degene rative in nature. IMPRESSION: 1. Uptake within the thoracolumbar junction region most suspicious that the central T12 level. Metast asis should be considered. 2. Metastatic foci within the posterior central occiput is not excluded. 3. There are some additional areas more likely related to degenerative changes discussed above.
--- NOTE | 2022-01-31 22:16 | CT ---
EXAMINATION TYPE: CT ChestAbdPelvis w con DATE OF EXAM: 01/31/2022 COMPARISON: Most recent CT July 18, 2021 and older CTs HISTORY: Metastatic Breast Cancer CT DLP: 1002.4 mGycm. Automated Exposure Control for Dose Reduction was Utilized. CONTRAST: CT scan of the thorax, abdomen and pelvis is performed with oral and with IV Contrast, patient inject ed with 70 ml mL of Isovue 300. FINDINGS: LUNGS: Mild anterior bibasilar linear scarring and/or atelectasis is redemonstrated. No suspicious ne w greater than 5 mm pulmonary nodules or masses. There is no pleural effusion or pneumothorax seen. The tracheobronchial tree remains patent. MEDIASTINUM: There are no new greater than 1 cm hilar or mediastinal lymph nodes. No pericardial ef fusion is seen. Slightly enlarged thyroid is redemonstrated. Bovine type aortic arch which is normal variant again seen. There is suspected fluid surrounding the right brachiocephalic artery just below right thyroid gland axial image 16 in the anterior superior mediastinum similar to prior studies. Ect atic ascending aorta up to 3.8 cm redemonstrated. Mild cardiomegaly with calcifications the level of the mitral and aortic valve. Mild to moderate coronary artery calcification redemonstrated. OTHER: Surgical clips right axillary region redemonstrated. LIVER/GB: Cholecystectomy clips redemonstrated. Extrahepatic bile ducts stable measuring mildly dilat ed at the david hepatis. PANCREAS: No significant abnormality is seen. SPLEEN: No significant abnormality is seen. ADRENALS: Slight asymmetric thickening to left adrenal gland is stable. KIDNEYS: Simple appearing 2.5 cm thin-walled cyst posteriorly upper pole left kidney image 64 series 3 is redemonstrated. BOWEL: Oral contrast reaches level of terminal ileum on current study. No suspicious small or large b owel dilatation. Diverticula in the left and sigmoid colon are redemonstrated GENITAL ORGANS: Uterus surgically absent or markedly atrophic. Scattered small pelvic phleboliths red emonstrated. LYMPH NODES: No greater than 1cm abdominal or pelvic lymph nodes are appreciated. OSSEOUS STRUCTURES: Underlying levoconvex scoliosis in the lumbar spine redemonstrated. Persistent mu ltifocal spurring and disc space narrowing with findings greatest at L3-L4, L5-S1, and L1-L2 levels i s redemonstrated where there is also spondylolisthesis and endplate sclerosis. Multiple sclerotic oss eous metastatic disease is redemonstrated with several scattered lesions throughout the thoracolumbar spine as well as the pelvis and cisternal lung with manubrium and right lateral mid rib lesion image 29 for reference are all redemonstrated. OTHER: Mild calcified plaque of the aorta extends into branch vessels. 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 No new suspicious mass or adenopath y to suggest active neoplastic recurrence. No significant change from most recent CT.
== END | disposition home or self-care (01) ==
LOC: RADNMMAIN 09:39
PROVIDERS: ATTEND Internal Medicine Hematology & Oncology
DX: C50.311 Malignant neoplasm of lower-inner quadrant of right female breast (principal)
CPT/HCPCS: 82565; 84520; 71260; 74177; 36415; 78306; A9503; Q9967

== ENCOUNTER 2022-02-02 09:24 | Emergency (ER) | payer MEDICARE ==
[2022-02-02 09:32] VITALS: RESP 18
[2022-02-02 10:37] LABS: Albumin 3.9 g/dL (3.5-5.0); Calcium 9.5 mg/dL (8.4-10.2); Magnesium 1.9 mg/dL (1.6-2.3); Potassium 3.9 mmol/L (3.5-5.1); Total Protein 6.4 g/dL (6.3-8.2)
[2022-02-02 10:41] LABS: Basophils % (A) 1 %; Eosinophils # (A) 0.1 k/uL (0-0.7); Eosinophils % (A) 3 %; HGB 12.8 gm/dL (11.4-16.0); Lymphocytes # (A) 0.5 k/uL (1.0-4.8); Lymphocytes % (A) 18 %; MCH 35.7 pg (25.0-35.0); MCHC 34.7 g/dL (31.0-37.0); MCV 102.8 fL (80.0-100.0); Macrocytosis Slight; Mean Platelet Volume 8.3; Monocytes # (A) 0.1 k/uL (0-1.0); Monocytes % (A) 3 %; Neutrophils % (A) 73 %; Platelet Count 173 k/uL (150-450); RDW 13.7 % (11.5-15.5); WBC 2.8 k/uL (3.8-10.6)
[2022-02-02 10:44] LABS: INR 0.9 (<1.2); Partial Thromboplastin Time 23.3 sec (22.0-30.0); Prothrombin Time 10.1 sec (9.0-12.0)
--- NOTE | 2022-02-02 11:08 | XR ---
EXAMINATION TYPE: XR chest 2V DATE OF EXAM: 02/02/2022 COMPARISON: 10/01/2020 HISTORY: Shortness of breath TECHNIQUE: Frontal and lateral views of the chest are obtained. FINDINGS: Scattered senescent parenchymal changes noted. Hyperinflation compatible with COPD. No evidence for infiltrate. No evidence for atelectasis. Heart size is stable. Mediastinal structures are stable and grossly unremarkable. No evidence for hilar prominence. Degenerative changes dorsal spine. IMPRESSION: 1. No evidence for acute pulmonary disease.
[2022-02-02 11:35] LABS: Appearance,Urine Cloudy (Clear); Bacteria,Urine Many /hpf; Bilirubin,Urine Negative (Negative); Blood,Urine Small (Negative); Budding Yeast,Urine Many /hpf; Color,Urine Yellow; Glucose,Urine (UA) Negative (Negative); Hyaline Casts,Urine 2 /lpf (0-2); Ketones,Urine Negative (Negative); Leukocyte Esterase,Urine Large (Negative); Mucus,Urine Occasional /hpf; Nitrite,Urine Positive (Negative); Protein,Urine Trace (Negative); RBC,Urine 5 /hpf (0-5); Specific Gravity,Urine 1.013 (1.001-1.035); Squamous Epithelial Cell,Urine 3 /hpf (0-4); Urobilinogen,Urine <2.0 mg/dL (<2.0); WBC,Urine 177 /hpf (0-5)
[2022-02-02] MEDS ORDERED: LEVOFLOXACIN 500 MG TAB PO STA (11:52)
[2022-02-02 12:27] VITALS: BP 128/89; PULSE 58; TEMP 97.6
--- NOTE | 2022-02-02 12:31 | ED ---
Dizziness HPI - General Chief Complaint: Syncope Stated Complaint: Syncope Time Seen by Provider: 02/02/22 09:28 Source: patient, EMS Mode of arrival: EMS Limitations: no limitations - History of Present Illness Initial Comments: This patient is an 86-year-old woman who presents here to be evaluated for a constellation of symptoms that came on this morning between 8:30 and 9. A.m. the patient states that she had taken her dog to the veterinary clinic. She was being instructed in how to give injections to the dog for diabetes. She states that she started to feel dizzy and lightheaded. She had some nausea. She was feeling very unsteady and had to sit down. The veterinary and then called EMS who evaluated the patient and brought her here. The patient states that her symptoms have all resolved now. She is feeling back to her baseline when I interview her. She is not having change in vision hearing, speech or other sensation. No weakness or numbness of the extremities. There is no pain or dyspnea. MD Complaint: lightheadedness, near syncope -: hour(s) Timing: sudden onset, now resolved Description: lightheadedness History of Same: Yes History of Trauma: No Severity: moderate Improves With: remaining still Associated Symptoms: denies other symptoms - Related Data Home Medications Medication Instructions Recorded Confirmed Cyanocobalamin [Vitamin B-12] 1,000 mcg PO HS 10/27/13 02/02/22 Multivitamins, Thera [Multivitamin 1 tab PO HS 10/27/13 02/02/22 (formulary)] Aspirin 325 mg PO HS 07/30/14 02/02/22 [place]-3 Fatty Acids/Fish Oil [Fish 1 cap PO HS 07/30/14 02/02/22 Oil 1,000 mg Softgel] Letrozole 2.5 mg PO DAILY 12/07/19 02/02/22 Levothyroxine Sodium 50 mcg PO SUSA 09/07/20 02/02/22 Levothyroxine Sodium [Synthroid] 25 mcg PO MOTUWETHFR 09/28/20 02/02/22 Simvastatin [Zocor] 10 mg PO HS 09/28/20 02/02/22 Metoprolol Tartrate [Lopressor] 12.5 mg PO BID 12/27/20 02/02/22 Palbociclib [Ibrance] 125 mg PO DIRECTED 12/27/20 02/02/22 Losartan Potassium 50 mg PO HS 01/30/21 02/02/22 Calcium Carbonate/Vitamin D3 1 tab PO DAILY 02/02/22 02/02/22 [Calcium 600 mg-D3 20 mcg (800 unit)] Triamcinolone Acetonide [Nasacort] 1 spray EA NOSTRIL DAILY PRN 02/02/22 02/02/22 Previous Rx's Medication Instructions Recorded traMADol HCl [Ultram] 50 mg PO Q6HR PRN #12 tab 10/04/20 Ciprofloxacin HCl [Cipro] 500 mg PO Q12HR 1 Days #6 tab 02/02/22 Allergies Allergy/AdvReac Type Severity Reaction Status Date / Time Cephalosporins Allergy Rash/Hives Verified 02/02/22 11:05 Sulfa (Sulfonamide Allergy Unknown Verified 02/02/22 11:05 Antibiotics) bacitracin AdvReac Unknown Verified 02/02/22 11:05 mold AdvReac Itching Verified 02/02/22 11:05 pollen extracts AdvReac Itching Verified 02/02/22 11:05 Review of Systems ROS Statement: Those systems with pertinent positive or pertinent negative responses have been documented in the HPI. ROS Other: All systems not noted in ROS Statement are negative. Constitutional: Reports: weakness. Denies: fever, chills Eyes: Denies: vision change ENT: Denies: hearing loss Respiratory: Denies: cough, dyspnea Cardiovascular: Reports: syncope (Near syncope). Denies: chest pain, palpitations, edema Gastrointestinal: Reports: nausea. Denies: abdominal pain, vomiting, diarrhea Genitourinary: Denies: dysuria, hematuria Skin: Denies: rash Neurological: Denies: headache, weakness, numbness, confusion Past Medical History Past Medical History: Atrial Fibrillation, Cancer, Hearing Disorder / Deafness, Hyperlipidemia, Hypertension, Osteoarthritis (OA), Thyroid Disorder Additional Past Medical History / Comment(s): HERNIATED DISC, SLIGHT INCONTINEN CE OF URINE, R sided mets breast cancer - FIRST DIAGNOSED BREAST CANCER RIGHT BREAST 2001 , MET TO BONE, History of Any Multi-Drug Resistant Organisms: None Reported Past Surgical History: Breast Surgery, Hysterectomy, Joint Replacement Additional Past Surgical History / Comment(s): (R) lumpectomy, CATARACTS DOLORES,- LENS IMPLANT, DOLORES KNEE REPLACEMENTS, DENTAL IMPLANTS Past Anesthesia/Blood Transfusion Reactions: No Reported Reaction Past Psychological History: No Psychological Hx Reported Smoking Status: Never smoker Past Alcohol Use History: None Reported Past Drug Use History: None Reported - Past Family History Mother Additional Family Medical History / Comment(s): Mother had respiratory illnesses Father Family Medical History: Cancer General Exam Limitations: no limitations General appearance: alert, in no apparent distress Head exam: Present: atraumatic, normocephalic Eye exam: Present: normal appearance. Absent: scleral icterus, conjunctival injection Neck exam: Present: normal inspection Respiratory exam: Present: normal lung sounds bilaterally. Absent: respiratory distress, wheezes, rales, rhonchi, stridor Cardiovascular Exam: Present: regular rate, normal rhythm, normal heart sounds. Absent: systolic murmur, diastolic murmur, rubs, gallop GI/Abdominal exam: Present: soft. Absent: distended, tenderness, guarding, rebound, rigid, mass Extremities exam: Present: normal inspection, normal capillary refill. Absent: pedal edema, calf tenderness Back exam: Present: normal inspection. Absent: CVA tenderness (R), CVA tenderness (L) Neurological exam: Present: alert, CN II-XII intact. Absent: motor sensory deficit Skin exam: Present: warm, dry, intact, normal color. Absent: rash Course Vital Signs 02/02/22 02/02/22 02/02/22 09:25 11:00 12:26 Temperature 97.4 F L 97.6 F Pulse Rate 54 L 56 L 58 L Respiratory 18 18 18 Rate Blood Pressure 152/76 145/68 128/89 O2 Sat by Pulse 98 96 96 Oximetry Medical Decision Making - Lab Data Result diagrams: 02/02/22 10:07 02/02/22 10:07 Lab Results 02/02/22 02/02/22 02/02/22 Range/Units 10:07 10:07 10:07 WBC 2.8 L (3.8-10.6) k/uL RBC 3.60 L (3.80-5.40) m/uL Hgb 12.8 (11.4-16.0) gm/dL Hct 37.0 (34.0-46.0) % MCV 102.8 H (80.0-100.0) fL MCH 35.7 H (25.0-35.0) pg MCHC 34.7 (31.0-37.0) g/dL RDW 13.7 (11.5-15.5) % Plt Count 173 (150-450) k/uL MPV 8.3 Neutrophils % 73 % Lymphocytes % 18 % Monocytes % 3 % Eosinophils % 3 % Basophils % 1 % Neutrophils # 2.0 (1.3-7.7) k/uL Lymphocytes # 0.5 L (1.0-4.8) k/uL Monocytes # 0.1 (0-1.0) k/uL Eosinophils # 0.1 (0-0.7) k/uL Basophils # 0.0 (0-0.2) k/uL Macrocytosis Slight PT 10.1 (9.0-12.0) sec INR 0.9 (<1.2) APTT 23.3 (22.0-30.0) sec Sodium 137 (137-145) mmol/L Potassium 3.9 (3.5-5.1) mmol/L Chloride 102 (98-107) mmol/L Carbon Dioxide 27 (22-30) mmol/L Anion Gap 8 mmol/L BUN 24 H (7-17) mg/dL Creatinine 0.78 (0.52-1.04) mg/dL Est GFR (CKD-EPI)AfAm 81 (>60 ml/min/1.73 sqM) Est GFR (CKD-EPI)NonAf 70 (>60 ml/min/1.73 sqM) Glucose 95 (74-99) mg/dL Calcium 9.5 (8.4-10.2) mg/dL Magnesium 1.9 (1.6-2.3) mg/dL Total Bilirubin 1.0 (0.2-1.3) mg/dL AST 34 (14-36) U/L ALT 17 (4-34) U/L Alkaline Phosphatase 56 (38-126) U/L Troponin I (0.000-0.034) ng/mL Total Protein 6.4 (6.3-8.2) g/dL Albumin 3.9 (3.5-5.0) g/dL Urine Color Urine Appearance (Clear) Urine pH (5.0-8.0) Ur Specific [place] (1.001-1.035) Urine Protein (Negative) Urine Glucose (UA) (Negative) Urine Ketones (Negative) Urine Blood (Negative) Urine Nitrite (Negative) Urine Bilirubin (Negative) Urine Urobilinogen (<2.0) mg/dL Ur Leukocyte Esterase (Negative) Urine RBC (0-5) /hpf Urine WBC (0-5) /hpf Urine WBC Clumps (None) /hpf Ur Squamous Epith Cells (0-4) /hpf Urine Bacteria (None) /hpf Hyaline Casts (0-2) /lpf Urine Mucus (None) /hpf Urine Yeast (Budding) (None) /hpf 02/02/22 02/02/22 Range/Units 10:07 11:16 WBC (3.8-10.6) k/uL RBC (3.80-5.40) m/uL Hgb (11.4-16.0) gm/dL Hct (34.0-46.0) % MCV (80.0-100.0) fL MCH (25.0-35.0) pg MCHC (31.0-37.0) g/dL RDW (11.5-15.5) % Plt Count (150-450) k/uL MPV Neutrophils % % Lymphocytes % % Monocytes % % Eosinophils % % Basophils % % Neutrophils # (1.3-7.7) k/uL Lymphocytes # (1.0-4.8) k/uL Monocytes # (0-1.0) k/uL Eosinophils # (0-0.7) k/uL Basophils # (0-0.2) k/uL Macrocytosis PT (9.0-12.0) sec INR (<1.2) APTT (22.0-30.0) sec Sodium (137-145) mmol/L Potassium (3.5-5.1) mmol/L Chloride (98-107) mmol/L Carbon Dioxide (22-30) mmol/L Anion Gap mmol/L BUN (7-17) mg/dL Creatinine (0.52-1.04) mg/dL Est GFR (CKD-EPI)AfAm (>60 ml/min/1.73 sqM) Est GFR (CKD-EPI)NonAf (>60 ml/min/1.73 sqM) Glucose (74-99) mg/dL Calcium (8.4-10.2) mg/dL Magnesium (1.6-2.3) mg/dL Total Bilirubin (0.2-1.3) mg/dL AST (14-36) U/L ALT (4-34) U/L Alkaline Phosphatase (38-126) U/L Troponin I <0.012 (0.000-0.034) ng/mL Total Protein (6.3-8.2) g/dL Albumin (3.5-5.0) g/dL Urine Color Yellow Urine Appearance Cloudy H (Clear) Urine pH 7.0 (5.0-8.0) Ur Specific [place] 1.013 (1.001-1.035) Urine Protein Trace H (Negative) Urine Glucose (UA) Negative (Negative) Urine Ketones Negative (Negative) Urine Blood Small H (Negative) Urine Nitrite Positive H (Negative) Urine Bilirubin Negative (Negative) Urine Urobilinogen <2.0 (<2.0) mg/dL Ur Leukocyte Esterase Large H (Negative) Urine RBC 5 (0-5) /hpf Urine WBC 177 H (0-5) /hpf Urine WBC Clumps Many H (None) /hpf Ur Squamous Epith Cells 3 (0-4) /hpf Urine Bacteria Many H (None) /hpf Hyaline Casts 2 (0-2) /lpf Urine Mucus Occasional H (None) /hpf Urine Yeast (Budding) Many H (None) /hpf Disposition Clinical Impression: Near syncope, Urinary tract infection Disposition: HOME SELF-CARE Condition: Good Instructions (If sedation given, give patient instructions): Urinary Tract Infection in Women (ED) Prescriptions: Ciprofloxacin HCl [Cipro] 500 mg PO Q12HR 1 Days #6 tab Is patient prescribed a controlled substance at d/c from ED?: No Referrals: Donta Dukes III, MD [Primary Care Provider] - 1-2 days
== END 2022-02-02 12:40 | disposition home or self-care (01) ==
LOC: EC 09:24
DX: R55 Syncope and collapse (principal); N39.0 Urinary tract infection, site not specified; I48.91 Unspecified atrial fibrillation; E78.5 Hyperlipidemia, unspecified; M19.90 Unspecified osteoarthritis, unspecified site; E07.9 Disorder of thyroid, unspecified; Z88.1 Allergy status to other antibiotic agents; Z88.2 Allergy status to sulfonamides; Z88.8 Allergy status to other drugs, medicaments and biological substances; Z79.890 Hormone replacement therapy; Z79.82 Long term (current) use of aspirin; Z79.899 Other long term (current) drug therapy
CPT/HCPCS: 36415; 71046; 80053; 81001; 83735; 84484; 85025; 85610; 85730; 93005; 99284

== ENCOUNTER → 2022-03-20 | Outpatient (CLI) | payer MEDICARE ==
[2022-03-20 12:50] VITALS: BP 149/75; PULSE 72; RESP 16; TEMP 98.2
== END ==
LOC: PROCWHC3 12:41
PROVIDERS: ATTEND Internal Medicine Hematology & Oncology
DX: C50.311 Malignant neoplasm of lower-inner quadrant of right female breast (principal); Z88.1 Allergy status to other antibiotic agents; Z88.2 Allergy status to sulfonamides; Z91.048 Other nonmedicinal substance allergy status
CPT/HCPCS: 96372; J0897

== ENCOUNTER → 2022-04-05 | Outpatient (CLI) | payer MEDICARE ==
--- NOTE | 2022-04-05 14:09 | BD ---
EXAMINATION TYPE: Axial Bone Density DATE OF EXAM: 04/05/2022 COMPARISON: 11/23/2015 CLINICAL HISTORY: 86 years year old Female. ICD-10 CODE: C50.311 BREAST CA Height: 63.5" Weight: 168.8 FRAX RISK QUESTIONS: Alcohol (3 or more units per day): NO Family History (Parent hip fracture): NO Glucocorticoids (More than 3mos): NO (Ex: prednisone, prednisolone, methylprednisolone, dexamethasone, and hydrocortisone). History of Fracture in Adulthood: NO Secondary Osteoporosis: 1. Type 1 Diabetes: NO 2. Hyperthyroidism: NO 3. Menopause before 45: NO 4. Malnutrition: NO 5. Chronic liver disease: NO Rheumatoid Arthritis: NO Current Tobacco Use: NO RISK FACTORS HISTORY OF: Hip Fracture (Right/Left): NO Spine Fracture: NO History of Wrist Fracture: NO Surgery to Spine/Hip(right/left)/Wrist (right/left): NO Family History of Osteoporosis: NO Active: NO Diet low in dairy products/other sources of calcium: NO Postmenopausal woman: YES Take estrogen and/or progesterone medications: YES, EXCHIVA How lon YEARS Lost more than 2 inches in height since high school: YES Frequent falls: COUPLE OF TIMES A YEAR Poor Health: [facility] Hyperparathyroidism: NO Adrenal Insufficiency: NO MEDICATIONS: Thyroid Medications: YES Which medication: LEVOTHYROXINE How Long: SEVERAL YEARS Additional Medications: CHOLESTEROL MEDS, BLOOD PRESSURE MEDS, CALCIUM W/D3, IBRANCE FOR METASTATIC BRCA, LETROZOLE, VIT B12, MULTIVITAMIN, FISH OIL Additional History: BREAST CANCER 20 YEARS AGO WITH CHEMO AND RADIATION, METASTATIC BREAST CANCER 3 Y EARS AGO IN NOV EXAM MEASUREMENTS: Bone mineral densitometry was performed using the [employer] System. Bone mineral density as measured about the Lumbar spine is: ----- L1-L4(G/cm2): 1.273 T Score Values are as follows: ----- L1: 1.6 ----- L2: 0.5 ----- L3: 0.2 ----- L4: 0.8 ----- L1-L4: 0.8 Bone mineral density has: DECREASED 6.0% since study of: 11/23/2015 Bone mineral density about the R hip (g/cm2): 0.874 Bone mineral density about the L hip (g/cm2): 0.932 T Score values are as follows: -----R Neck: -1.2 -----L Neck: -0.8 -----R Total: -0.7 -----L Total: -0.3 Bone mineral density has: INCREASED 0.4% since study of: 11/23/2015 FRAX%s: The graph provided illustrates a 12.1% chance for a major osteoporotic fx and a 2.9% chance f or the hips probability for fx in 10 years time. IMPRESSION: Normal (Values between +1 and -1 indicate normal bone mass). Consider repeating this study in 5 year s or sooner if there is some new clinical indication. NOTE: T-SCORE=SD OF THE YOUNG ADULT MEAN.
== END | disposition home or self-care (01) ==
LOC: RADBDWWP 12:43
PROVIDERS: ATTEND Internal Medicine Hematology & Oncology
DX: C50.311 Malignant neoplasm of lower-inner quadrant of right female breast (principal); M85.851 Other specified disorders of bone density and structure, right thigh; Z78.0 Asymptomatic menopausal state
CPT/HCPCS: 77080

== ENCOUNTER → 2022-06-20 | Outpatient (CLI) | payer MEDICARE ==
[2022-06-20 09:00] VITALS: BP 161/83; PULSE 71; RESP 16; TEMP 97.8
== END ==
LOC: PROCWHC3 08:46 → EDSTATUS 09:00
PROVIDERS: ATTEND Internal Medicine Hematology & Oncology
DX: C50.311 Malignant neoplasm of lower-inner quadrant of right female breast (principal); Z91.048 Other nonmedicinal substance allergy status; Z88.2 Allergy status to sulfonamides; Z88.1 Allergy status to other antibiotic agents; Z91.09 Other allergy status, other than to drugs and biological substances
CPT/HCPCS: 96372; J0897

== ENCOUNTER → 2022-09-19 | Outpatient (CLI) | payer MEDICARE ==
[2022-09-19 13:07] VITALS: BP 166/92; PULSE 74; RESP 16; TEMP 98.2
== END ==
LOC: PROCWHC3 12:48
PROVIDERS: ATTEND Internal Medicine Hematology & Oncology
DX: C79.51 Secondary malignant neoplasm of bone (principal)
CPT/HCPCS: 96372; J0897

== ENCOUNTER → 2022-11-10 | Outpatient (CLI) | payer MEDICARE | END | disposition home or self-care (01) | LOC: LABWHC1 09:59 | PROVIDERS: ATTEND Internal Medicine Hematology & Oncology | DX: C50.311 Malignant neoplasm of lower-inner quadrant of right female breast (principal); I10 Essential (primary) hypertension; M81.8 Other osteoporosis without current pathological fracture; M15.9 Polyosteoarthritis, unspecified | CPT/HCPCS: 87077; 87086; 87186 ==

== ENCOUNTER → 2022-12-21 | Outpatient (CLI) | payer MEDICARE ==
[2022-12-21 15:31] VITALS: BP 155/72; PULSE 64; RESP 16; TEMP 97.9
== END ==
LOC: PROCWHC3 13:04
PROVIDERS: ATTEND Internal Medicine Hematology & Oncology
DX: C79.51 Secondary malignant neoplasm of bone (principal)
CPT/HCPCS: 96372; J0897

== ENCOUNTER → 2023-03-28 | Outpatient (CLI) | payer MEDICARE ==
[~2023-03-28] MED LIST changes: -DENOSUMAB 120 MG/1.7 ML VIAL SQ NR; +SODIUM CHLORIDE 0.9% 500 ML 500 ML in EMPTY BAG 1 BAG IV PRN; +ZOLEDRONIC ACID 4 MG in SODIUM CHLORIDE 0.9% 100 ML IV NR
[2023-03-28 14:18] VITALS: BP 164/90; PULSE 70; RESP 16; TEMP 97.6
== END ==
LOC: PROCWHC3 13:53 → EDSTATUS 14:00
PROVIDERS: ATTEND Internal Medicine Hematology & Oncology
DX: C79.51 Secondary malignant neoplasm of bone (principal)
CPT/HCPCS: 96365; J3489

== ENCOUNTER → 2023-04-05 | Outpatient (CLI) | payer MEDICARE ==
[2023-04-05 10:21] LABS: African American GFR (CKD) >90 (>60 ml/min/1.73 sqM); Blood Urea Nitrogen 18 mg/dL (7-17); Non-African American GFR(CKD) 78 (>60 ml/min/1.73 sqM)
--- NOTE | 2023-04-05 14:21 | CT ---
EXAMINATION TYPE: CT ChestAbdPelvis w con DATE OF EXAM: 04/05/2023 COMPARISON: 01/31/2022 HISTORY: breast CA f/u CT DLP: 944.7 mGycm Automated exposure control for dose reduction was used. CONTRAST: CT scan of the chest, abdomen and pelvis is performed with Oral Contrast and with IV Contrast, patien t injected with 100 mL of Isovue 300. FINDINGS: CT chest: There is no suspicious lung mass or nodule. There is no abnormal airspace/consolidative density or abnormal interstitial density. There is no pleural effusion, pleural thickening or pneumothorax. Vessels the chest are normal is no mediastinal, hilar or axillary adenopathy. There are multiple sclerotic sclerotic bony lesions in the thoracic spine, manubrium, sacrum and ribs with no pathologic fractures. No significant interval progression compared to previous. CT abdomen and pelvis: There are surgical absence of the gallbladder. There is no focal mass or organomegaly involving the liver, pancreas, spleen or adrenal glands. The caliber the abdominal aorta is normal is no retroperitoneal adenopathy or hemorrhage. There are no solid renal masses. There is a simple cortical cyst of the posterior left kidney. There is no hydronephrosis. The bowel loops are normal in caliber and there is no dilatation or obstruction. No inflammatory berry ges are identified in the bowel wall or mesentery. There is no free intraperitoneal air or fluid. There is no pelvic mass, free fluid, abscess or adenopathy. There are surgical absence of uterus. There is diverticulosis of the colon but no evidence of diverti culitis. Multiple sclerotic metastases are again seen in the iliac bones, sacrum and lumbar spine unchanged co mpared to previous. IMPRESSION: Stable diffuse sclerotic osseous metastasis as described above. No other evidence of metastasis withi n the chest, abdomen or pelvis. No interval change.
--- NOTE | 2023-04-05 17:51 | NM ---
EXAMINATION TYPE: NM bone scan whole body DATE OF EXAM: 04/05/2023 COMPARISON: 01/31/[address] CLINICAL INDICATION: Female, 87 years old with history of C50.311 breast ca; TECHNIQUE: Delayed whole-body scanning was performed following the injection of 19 mCi Tc 99m MDP. I mages acquired 3 hours post injection. FINDINGS: Focal activity at the sternal manubrium. Scattered activity within the mid thoracic spine, lower thoracic spine, and upper to mid lumbar spine on the posterior projection. A small focus left posterior mid thoracic spine is more pronounced or n ew. Increased activity at the right shoulder may represent a combination of metastatic disease and postsu rgical/degenerative change. Degenerative activity at the base of the thumbs. Photopenia related to bilateral shoulder arthroplast ies. Activity along the posterior midline calvarium felt to be projectional. IMPRESSION: Scattered osseous metastatic disease corresponding to sclerotic areas on CT are overall similar. Only a focus towards the left in the posterior mid thoracic spine is more pronounced/new.
== END | disposition home or self-care (01) ==
LOC: RADNMMAIN 09:21
PROVIDERS: ATTEND Internal Medicine Hematology & Oncology
DX: C79.51 Secondary malignant neoplasm of bone (principal); C50.311 Malignant neoplasm of lower-inner quadrant of right female breast; M81.8 Other osteoporosis without current pathological fracture; M15.9 Polyosteoarthritis, unspecified; I10 Essential (primary) hypertension; Z71.3 Dietary counseling and surveillance
CPT/HCPCS: 82565; 84520; 71260; 74177; 36415; 78306; A9503; Q9967

== ENCOUNTER → 2023-07-08 | Outpatient (CLI) | payer MEDICARE ==
[2023-07-08] MEDS: SODIUM CHLORIDE 0.9% 500 ML 500 ML in EMPTY BAG 1 BAG IV PRN (14:13)
[2023-07-08] MEDS: ZOLEDRONIC ACID 4 MG in SODIUM CHLORIDE 0.9% 100 ML IV NR (14:13)
[2023-07-08 14:14] VITALS: BP 154/91; PULSE 75; RESP 16; TEMP 97.9
== END ==
LOC: PROCWHC3 13:53
PROVIDERS: ATTEND Internal Medicine Hematology & Oncology
DX: C79.51 Secondary malignant neoplasm of bone (principal)
CPT/HCPCS: 96365; J3489

== ENCOUNTER → 2023-10-09 | Outpatient (CLI) | payer MEDICARE ==
[2023-10-09 14:15] VITALS: BP 158/78; PULSE 72; RESP 14; TEMP 97.9
[2023-10-09] MEDS: ZOLEDRONIC ACID 4 MG in SODIUM CHLORIDE 0.9% 100 ML IV NR (14:31)
[2023-10-09] MEDS: SODIUM CHLORIDE 0.9% 500 ML 500 ML in EMPTY BAG 1 BAG IV PRN (14:32)
== END ==
LOC: PROCWHC3 13:57
PROVIDERS: ATTEND Internal Medicine Hematology & Oncology
DX: C79.51 Secondary malignant neoplasm of bone (principal)
CPT/HCPCS: 96365; J3489

== ENCOUNTER → 2024-01-09 | Outpatient (CLI) | payer MEDICARE ==
[2024-01-09 14:25] VITALS: BP 150/83; PULSE 51; RESP 18; TEMP 98.3
[2024-01-09] MEDS: SODIUM CHLORIDE 0.9% 500 ML 500 ML in EMPTY BAG 1 BAG IV PRN (14:34)
[2024-01-09] MEDS: ZOLEDRONIC ACID 4 MG in SODIUM CHLORIDE 0.9% 100 ML IV NR (14:35)
== END ==
LOC: PROCWHC3 14:11
PROVIDERS: ATTEND Internal Medicine Hematology & Oncology
DX: C50.311 Malignant neoplasm of lower-inner quadrant of right female breast
CPT/HCPCS: 96365

== ENCOUNTER → 2024-03-13 | Outpatient (CLI) | payer MEDICARE ==
[2024-03-13 10:07] LABS: African American GFR (CKD) 53 (>60 ml/min/1.73 sqM); Blood Urea Nitrogen 20 mg/dL (7-17); Non-African American GFR(CKD) 46 (>60 ml/min/1.73 sqM)
--- NOTE | 2024-03-13 12:28 | CT ---
EXAMINATION TYPE: CT ChestAbdPelvis w con DATE OF EXAM: 03/13/2024 COMPARISON: 04/05/2023 HISTORY: obs for mets. hx of breast ca. CT DLP: 787.7 mGycm Automated exposure control for dose reduction was used. CONTRAST: CT scan of the chest, abdomen and pelvis is performed without Oral Contrast and with IV Contrast, pat ient injected with 100ml mL of Isovue 300. FINDINGS: CT chest: There is no suspicious lung mass or nodule. There is no abnormal airspace/consolidative density or abnormal interstitial density. There is no pleural effusion, pleural thickening or pneumothorax. The great vessels and chest are normal there is no mediastinal, hilar or axillary adenopathy. No focal osseous lesions are seen. CT abdomen and pelvis: There is surgical absence of the gallbladder. There is no biliary ductal dilatation. There are new multiple ill-defined low density lesions within the liver largest of which is in the do me and measures actually 23 mm. Additional small lesions are scattered throughout the right lobe of t he liver and left lobe of the liver. The findings are highly suspicious for metastatic disease. There is no solid renal mass or hydronephrosis. There is no retroperitoneal adenopathy or hemorrhage in the caliber of the abdominal aorta is normal. The bowel loops are normal in caliber and there is no dilatation or obstruction. No inflammatory berry ges identified in the bowel wall and mesentery. There is no free intracranial air or fluid. There is no pelvic mass or adenopathy. There is no free fluid within the pelvis. There are multiple stable innumerable sclerotic metastatic deposits scattered throughout the thoracic and lumbar spine, sternum, pelvis and hips but there are no pathological fractures. IMPRESSION: 1. No evidence of metastatic disease within the thorax. 2. Interval development of multiple lesions within the liver highly suspicious for new metastatic dis ease, see above. 3. Multiple stable sclerotic metastasis throughout the bony skeleton without pathologic fracture. [facility], , 03/13/2024 12:25 PM
--- NOTE | 2024-03-13 14:57 | NM ---
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 Images acquired 3 hours post injection. FINDINGS: The previous abnormal activity involving the sternal manubrium, anterior right iliac wing, and scatte red within the mid thoracic spine, thoracolumbar junction, and upper lumbar spine are redemonstrated. However, in the interval, there has been development of numerous new foci of abnormal activity throug hout the entire thoracolumbar spine, multiple bilateral ribs, left posterior cervical spine, calvariu m, possibly within both hips, posterior right iliac bone, left ischium, both hips, and possibly the r ight lesser trochanter. Abnormal activity right shoulder and base of the thumbs may be on a degenerative basis. 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 IMPRESSION: Scintigraphic evidence for progressive diffuse osseous metastatic disease involving the calvarium, st ernum, bilateral ribs, spine, pelvis, and both hips. [facility], , 03/13/2024 2:55 PM
== END | disposition home or self-care (01) ==
LOC: RADNMMAIN 09:19
PROVIDERS: ATTEND Internal Medicine Hematology & Oncology
DX: C50.311 Malignant neoplasm of lower-inner quadrant of right female breast (principal); C79.51 Secondary malignant neoplasm of bone
CPT/HCPCS: 82565; 84520; 71260; 74177; 36415; 78306; A9503; Q9967